=== PATIENT | female | born 1935 | race Caucasian/White ===

== ENCOUNTER → 2022-12-10 11:43 | Outpatient (BNVA) | payer MEDICARE, SELFPAY | PROVIDERS: Family Provider Nurse Practitioner Family; PCP Nurse Practitioner Family; Visit Provider Registered Nurse | DX: N39.0 Urinary tract infection, site not specified (principal); R39.9 Unspecified symptoms and signs involving the genitourinary system | CPT/HCPCS: 81000; 87077; 87086; 87184 ==

== ENCOUNTER → 2022-12-17 10:38 | Outpatient (BNVA) | payer MEDICARE, SELFPAY | PROVIDERS: Family Provider Nurse Practitioner Family; PCP Nurse Practitioner Family; Visit Provider Registered Nurse | DX: N39.0 Urinary tract infection, site not specified (principal) | CPT/HCPCS: 81000 ==

== ENCOUNTER → 2023-07-02 14:48 | Outpatient (BNVA) | payer MEDICARE, SELFPAY | PROVIDERS: Family Provider Nurse Practitioner Family; PCP Registered Nurse; Visit Provider Registered Nurse | DX: I10 Essential (primary) hypertension (principal); R25.2 Cramp and spasm; M71.22 Synovial cyst of popliteal space [Baker], left knee; F41.9 Anxiety disorder, unspecified | CPT/HCPCS: 80053; 81000; 85025 ==

== ENCOUNTER → 2023-08-15 10:17 | Outpatient (BNVA) | payer MEDICARE, SELFPAY | PROVIDERS: Family Provider Nurse Practitioner Family; PCP Registered Nurse; Referring Provider Registered Nurse; Visit Provider Nurse Practitioner | DX: M17.12 Unilateral primary osteoarthritis, left knee | CPT/HCPCS: 20610; 73560; 73565; 99204; J1100; J2795; J3301 ==

== ENCOUNTER 2024-01-04 13:28 | Inpatient (IN) | payer MEDICARE, SELFPAY ==
[2024-01-04] VITALS (12 sets, daily range): BP systolic 91–162; BP diastolic 53–78; PULSE 61–116; RESP 18–36; TEMP 37.1–37.6; O2SAT 90–97; BMI 27.4
--- NOTE | 2024-01-04 14:05 | XRR_ITS ---
PROCEDURE INFORMATION: Exam: XR Chest Exam date and time: 01/04/2024 2:21 PM Age: 88 years old Clinical indication: Shortness of breath; Additional info: SOB, fever TECHNIQUE: Imaging protocol: Radiologic exam of the chest. Views: 1 view. COMPARISON: No relevant prior studies available. FINDINGS: Lungs: Increased opacity at the right lung base. Curvilinear bilateral opacities which can be seen with emphysematous lung changes. 0.7 centimeters right mid lung opacity. Pleural spaces: No pneumothorax, or pleural effusion. Heart/Mediastinum: Unremarkable. No cardiomegaly. Bones/joints: Bilateral narrowing of the glenohumeral joints without subchondral sclerosis. Chronic multilevel degenerative changes of the thoracic vertebrae. XR/XR chest 1V portable [id number] IMPRESSION: 1. Increased opacity at the right lung base. Infectious process cannot be ruled out. 2. Emphysematous lung changes. 3. 0.7 centimeters right mid lung opacity.
[2024-01-04 14:13] LABS: Basophils % 0.2 %; Hematocrit 36.5 % (36-47); Lymphocytes # 0.8 10^3/uL (0.8-4.8); Lymphocytes % 3.7 %; Mean Corpuscular HGB Conc 29.9 g/dL (30-55); Mean Corpuscular Hemoglobin 27.7 pg (27-33); Mean Corpuscular Volume 92.9 fl (85-98); Mean Platelet Volume 10.3 fL (7.4-10.4); Monocytes # 1.6 10^3/uL (0.2-0.9); Monocytes % 7.1 %; Neutrophils # 19.57 10^3/uL (1.8-7.7); Neutrophils % 88.3 %; Nucleated Red Blood Cells % 0 %; Platelet Count 246 10^3/cmm (157-399); Red Blood Count 3.93 10^6/uL (3.85-5.65); Red Cell Distribution Width 15.3 % (12.1-15.1); White Blood Count 22.18 10^3/uL (3.29-11.43)
[2024-01-04 14:34] LABS: NT Pro B Type Natriuretic Pept 196 pg/mL (0-450); Procalcitonin 0.18 ng/mL (0-0.5)
[2024-01-04 14:40] LABS: Influenza A by IFA negative (Negative); Influenza B by IFA negative (Negative)
[2024-01-04 14:41] LABS: Lactic Sepsis W/Reflex 1.7 mmol/L (0.5-2.2); SARS Covid-2 Antigen negative (Negative)
[2024-01-04 14:45] LABS: Alanine Aminotransferase 12 U/L (0-33); Albumin Level 3.9 g/dL (3.5-5.2); Alkaline Phosphatase 84 U/L (35-105); Anion Gap 16.2 (5-19); Aspartate Amino Transferase 20 U/L (0-32); Blood Urea Nitrogen 19 mg/dL (8-23); Calcium 9.1 mg/dL (8.5-10.5); Carbon Dioxide 34 mmol/L (22-29); Chloride 96 mmol/L (98-107); Globulin 3.2 g/dL (1.3-4.6); Glucose 139 mg/dL (65-115); Osmolality Calculated 299 mOsm/kg (285-295); Potassium 4.2 mmol/L (3.5-5.1); Sodium 142 mmol/L (136-145); Total Bilirubin 0.5 mg/dL (0.15-1.2); Total Protein 7.1 g/dL (6.6-8.7)
[2024-01-04] MEDS: sodium chloride 0.9% 500 ML IV (14:47)
[2024-01-04 14:51] LABS: Creatinine Clr Calc Pharmacy 31.3497
--- NOTE | 2024-01-04 14:53 | ECG_ITS ---
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 Measurements Intervals [place] Rate: 111 P: 91 MA: 129 QRS: 78 QRSD: 90 T: 41 QT: 322 QTc: 438 Interpretive Statements SINUS TACHYCARDIA MINIMAL ST DEPRESSION [0.025+ mV ST DEPRESSION] ABNORMAL RHYTHM ECG No previous ECG available for comparison Electronically Signed On 01-05-2024 11:42:50 CDT by Kevin Martinez M.D. [id number]
[2024-01-04] MEDS: ipratropium-albuterol 3 mL Neb INHALATION ×2 (15:13→20:44)
[2024-01-04 15:33] LABS: Add Urine Microscopic? YES; Bacteria Urine 2+ /hpf; Bilirubin Urine Neg (Negative); Blood Urine 2+ (Negative); Glucose Urine UA Norm (Normal); Ketones Urine 1+ (Negative); Leukocyte Esterase Urine 1+ (Negative); Nitrate Urine Negative (Negative); Protein Urine Neg (Negative); Squamous Epithelial Cell Urine 0-4 /hpf (0-5); Urine Appearance Clear (CLEAR); Urine Color Yellow (Yellow); Urobilinogen Urine Norm (Negative); WBC Urine 15-25 /hpf (0-5); pH Urine 5 (5-7)
[2024-01-04 15:34] LABS: Add Urine Culture? Yes
--- NOTE | 2024-01-04 15:36 | PC.NURSE ---
abx delayed due to needing blood cultures drawn first.
[2024-01-04] MEDS: cefTRIAXone 1,000 MG in sodium chloride 0.9% (plus) 50 ML 100 MG IV (15:49)
--- NOTE | 2024-01-04 17:14 | ED_ITS ---
HPI - SOB/Dyspnea 2 General: Chief Complaint: Shortness of Breath/Dyspnea Stated Complaint: FALL Time Seen by Provider: 01/04/24 13:32 Source: patient and EMS Mode of arrival: EMS Limitations: no limitations History of Present Illness: HPI Narrative: 88-year-old female comes in with shortne ss of breath and fever. EMS reported temp of 101.6 on arrival here is 99.6. Patient has a history of COPD and CHF. Patient was recently placed on Lasix. Of note she is tachycardic and tachypneic. She reports that she has been feeling bad and got worse today. She had a fall also today but reports no pain from the fall just, fell on her bottom when she missed the toilet. Related Data: Home oxygen amount: 2 liters Review of Systems 2 General: Reports: 10 or more systems reviewed and unremarkable except in HPI and below PFSH ED 2 PFSH: Medical History Posterior left knee pain Primary osteoarthritis of left knee Hypertension Social History Smoking and tobacco/nicotine status: current every day tobacco/nicotine user smokeless tobacco Smokeless tobacco user: snuff Alcohol intake: never Substance/Drug Use: never Adopted: No Caregiver/support person: No Lives independently: Yes Marital status: / Do you think of yourself as: Straight/Heterosexual Current gender identity: Female Physical Exam 2 Const: COMMON NORMALS: no acute distress, average body habitus, patient oriented x3, healthy appearing, alert and well nourished GENERAL APPEARANCE: well kempt, well developed, ill appearing and frail appearing HENMT: COMMON NORMALS: normocephalic, atraumatic, external ears normal and moist oral mucous membranes HEAD & SCALP: normocephalic and atraumatic E XTERNAL EAR: Yes external ears normal Eye: COMMON NORMALS: Equal, round and reactive pupils present, EOMs intact bilaterally and conjunctivae normal CONJUNCTIVA: Yes conjunctivae normal P UPIL: Yes Equal, round and reactive pupils present Neck/C-Spine: COMMON NORMALS: full ROM, no lymphadenopathy and supple Chest: CHEST: Yes Symmetrical chest wall rise and No Surgical scars present (Chest) Resp: COMMON NORMALS: No retractions EFFORT & INSPECTION: Yes symmetric chest movement, Yes tachypneic and Yes uses accessory muscles AUSCULTATION: r honchi right lower and wheezes expiratory wheezes Cardio: COMMON NORMALS: regular rhythm, S1 normal heart sound present, S2 normal heart sound present, No gallops present (Cardio), No clicks present (Cardio), No murmurs present (Cardio) and No rub (Cardio) RATE: tachycardic RHYTHM: regular rhythm HEART SOUNDS: S1 normal heart sound present, S2 normal heart sound present and no murmurs PERIPHERAL PULSES: other (Radial pulses 2+ and symmetric) GI: COMMON NORMALS: Soft to palpation, non-tender and no masses INSPECTION: No abdominal distension PALPATION: Yes Soft to palpation, No Guarding due to palpation present (GI) and No Rebound tenderness present : COMMON NORMALS: Yes no CVA tenderness BLADDER/KIDNEY EXAM: Yes no CVA tenderness Back/Pelvis: COMMON NORMALS: no CVA tenderness Extremity: COMMON NORMALS: normal to inspection, full ROM, capillary refill normal and no clubbing, cyanosis or edema Neuro: COMMON NORMALS: patient oriented x3 SENSORIUM/ORIENTATION: Yes alert Psych: APPEARANCE: Yes well kempt Skin: COMMON NORMALS: no rashes or lesions noted, no wounds, turgor normal and no jaundice GENERAL SKIN EXAM: no rashes or lesions noted and turgor normal Course 2 Vital Signs: Vital signs: Vital Signs Temperature 99.6 F 01/04/24 13:30 Pulse Rate 115 H 01/04/24 15:17 Respiratory Rate 22 H 01/04/24 15:17 Blood Pressure 122/60 01/04/24 15:17 Pulse Oximetry 96 01/04/24 15:17 Oxygen Delivery Me thod Nasal Cannula 01/04/24 15:17 Oxygen Flow Rate 2 01/04/24 15:17 MDM - SOB/Dyspnea Medical Decision Making Patient arrives with sepsis and shortness of breath. Has a right lower lobe pneumonia on chest x-ray. Labs came back showing elevated white count. Thankfully CMP is fairly unremarkable for patient may be a mild dehydration. Patient was given 500 cc of fluids and blood pressure improved from 91/69 to 122/60. Heart rate initially improved but has come back to being elevated. Will give another 500 cc and admit patient to hospital. She had been given 1 g of Rocephin and will be given azithromycin 500 mg. An EKG was also performed and was performed at 1453 and I interpreted at 1458. Sinus tachycardia rate of [address] elevations or depressions normal axis with no prolonged intervals. Medical Records I reviewed the patient's medical records. Lab Data I reviewed the patient's lab results. 01/04/24 13:45 01/04/24 13:45 Labs/Radiology: Radiology Impressions Chest X-Ray 01/04/24 14:05 IMPRESSION: 1. Increased opacity at the right lung base. Infectious process cannot be ruled out. 2. Emphysematous lung changes. 3. 0.7 centimeters right mid lung opacity. Laboratory Results WBC 22.18 10^3/uL (3.29-11.43) H 01/04/24 13:45 RBC 3.93 10^6/uL (3.85-5.65) 01/04/24 13:45 Hgb 10.90 g/dL (11.27-16.99) L 01/04/24 13:45 Hct 36.5 % (36-47) 01/04/24 13:45 MCV 92.9 fl (85-98) 01/04/24 13:45 MCH 27.7 pg (27-33) 01/04/24 13:45 MCHC 29.9 g/dL (30-55) L 01/04/24 13:45 RDW 15.3 % (12.1-15.1) H 01/04/24 13:45 Plt Count 246 10^3/cmm (157-399) 01/04/24 13:45 MPV 10.3 fL (7.4-10.4) 01/04/24 13:45 Neut % (Auto) 88.3 % 01/04/24 13:45 Lymph % (Auto) 3.7 % 01/04/24 13:45 [place] % (Auto) 7.1 % 01/04/24 13:45 Eos % (Auto) 0.0 % 01/04/24 13:45 Baso % (Auto) 0.2 % 01/04/24 13:45 Neut # (Auto) 19.57 10^3/uL (1.8-7.7) H 01/04/24 13:45 Lymph # (Auto) 0.8 10^3/uL (0.8-4.8) 01/04/24 13:45 [place] # (Auto) 1.6 10^3/uL (0.2-0.9) H 01/04/24 13:45 Eos # (Auto) 0.0 10^3/uL (0.0-0.8) 01/04/24 13:45 Baso # (Auto) 0.0 10^3/uL (0.0-0.1) 01/04/24 13:45 Nucleated RBC % (auto) 0 % 01/04/24 13:45 Nucleated RBCs # 0.0 /100WBC 01/04/24 13:45 Sodium 142 mmol/L (136-145) 01/04/24 13:45 Potassium 4.2 mmol/L (3.5-5.1) 01/04/24 13:45 Chloride 96 mmol/L (98-107) L 01/04/24 13:45 Carbon Dioxide 34 mmol/L (22-29) H 01/04/24 13:45 Anion Gap 16.2 (5-19) 01/04/24 13:45 BUN 19 mg/dL (8-23) 01/04/24 13:45 Creatinine 1.1 mg/dL (0.5-0.9) H 01/04/24 13:45 GFR Calculation Not Reportable 01/04/24 13:45 Glucose 139 mg/dL (65-115) H 01/04/24 13:45 Calculated Osmolality 299 mOsm/kg (285-295) H 01/04/24 13:45 Lactic Acid 1.7 mmol/L (0.5-2.2) 01/04/24 13:45 Calcium 9.1 mg/dL (8.5-10.5) 01/04/24 13:45 Total Bilirubin 0.5 mg/dL (0.15-1.2) 01/04/24 13:45 AST 20 U/L (0-32) 01/04/24 13:45 ALT 12 U/L (0-33) 01/04/24 13:45 Alkaline Phosphatase 84 U/L (35-105) 01/04/24 13:45 NT-Pro-B Natriuret Pep 196 pg/mL (0-450) 01/04/24 13:45 Total Protein 7.1 g/dL (6.6-8.7) 01/04/24 13:45 Albumin 3.9 g/dL (3.5-5.2) 01/04/24 13:45 Globulin 3.2 g/dL (1.3-4.6) 01/04/24 13:45 Procalcitonin 0.18 ng/mL (0-0.5) 01/04/24 13:45 Urine Color Yellow (Yellow) 01/04/24 15:10 Urine Appearance Clear (CLEAR) 01/04/24 15:10 Urine pH 5 (5-7) 01/04/24 15:10 Ur Specific [place] 1.020 (1.005-1.030) 01/04/24 15:10 Urine Protein Neg (Negative) 01/04/24 15:10 Urine Glucose (UA) Norm (Normal) 01/04/24 15:10 Urine Ketones 1+ (Negative) H 01/04/24 15:10 Urine Blood 2+ (Negative) H 01/04/24 15:10 Urine Nitrate Negative (Negative) 01/04/24 15:10 Urine Bilirubin Neg (Negative) 01/04/24 15:10 Urine Urobilinogen Norm mg/dL (Negative) 01/04/24 15:10 Ur Leukocyte Esterase 1+ (Negative) H 01/04/24 15:10 Urine RBC 5-10 /hpf (0-2) H 01/04/24 15:10 Urine WBC 15-25 /hpf (0-5) H 01/04/24 15:10 Ur Squamous Epith Cells 0-4 /hpf (0-5) H 01/04/24 15:10 Amorphous Sediment Not Reportable 01/04/24 15:10 Urine Bacteria 2+ /hpf (NONE) H 01/04/24 15:10 Influenza Type A Ag negative (Negative) 01/04/24 13:45 Influenza Type B Ag negative (Negative) 01/04/24 13:45 SARS-CoV-2 Ag (Rapid) negative (Negative) 01/04/24 13:45 All radiology interpretation(s) finalized by discharge ED provider radiology interpretation(s): See MDM discussion right lower lobe pneumonia on chest x-ray Discharge Plan Discharge Patient Disposition: Admitted As Inpatient Clinical Impression: Community acquired pneumonia, Sepsis Condition: Stable Prescriptions: No Action (DME) oxygen 3.5L See Rx Instructions .Route .MEDSUPPLY Qty: 1 0RF Rx Instructions: As directed chlorhexidine gluconate 0.12 % mouthwash 15 ml buccal BID 10 Days Qty: 1500 0RF fluticasone propion-salmeterol [Advair Diskus] 250-50 mcg/dose blister with device 1 inh inhalation BID 30 Days Qty: 60 5RF Rx Instructions: 340B, pt does NOT Have insurance CAN DO BRAND NAME IF CHEAPER furosemide [Lasix] 20 mg tablet 10 - 20 mg PO DAILY 30 Days Qty: 30 5RF levalbuterol HCl 1.25 mg/3 mL solution for nebulization See Rx Instructions .ROUTE .COMPLEX Qty: 225 0RF Dose Instruction: USE 1 VIAL IN NEBULIZER TWICE DAILY FOR 30 DAYS. DX: J43.8 Rx Instructions: USE 1 VIAL IN NEBULIZER TWICE DAILY FOR 30 DAYS. DX: J43.8 lorazepam 0.5 mg tablet 0.25 - 0.5 mg PO DAILY PRN (Reason: anxiety) 30 Days Qty: 30 5RF (DME) Aeroneb Go Nebulizer Misc See Rx Instructions .Route Qty: 1 0RF Rx Instructions: As directed ropinirole 0.25 mg tablet See Rx Instructions .ROUTE .COMPLEX Qty: 30 0RF Dose Instruction: TAKE 1 TO 2 TABLETS BY MOUTH ONCE DAILY NEEDED FOR RESTLESS LEGS Rx Instructions: TAKE 1 TO 2 TABLETS BY MOUTH ONCE DAILY NEEDED FOR RESTLESS LEGS Referrals: Ayanna Pennington FNP [Primary Care Provider] - Coding Level of Care Code ED [employer] Dispatcher for Brandi Mancia
--- NOTE | 2024-01-04 17:30 | ECG_ITS ---
[facility] Test Date: 2024-01-04 Pat Name: Nadia Staley Department: Room: Gender: Female Hand Shaker: : 1935 Requested By: Ashlie Holbrook Order Number: [id number] Reading MD: Kevin Martinez M.D. Measurements Intervals [place] Rate: 115 P: 89 OR: 125 QRS: 85 QRSD: 94 T: 48 QT: 326 QTc: 452 Interpretive Statements SINUS TACHYCARDIA WITH OCCASIONAL SUPRAVENTRICULAR PREMATURE COMPLEXES MODERATE ST DEPRESSION [0.05+ mV ST DEPRESSION] Compared to ECG 01/04/2024 14:53:25 No significant changes Electronically Signed On 01-05-2024 11:38:58 CDT by Kevin Martinez M.D. [id number]
--- NOTE | 2024-01-04 17:32 | P.HP_ITS ---
Providers/Chief Complaint 2 Primary Care Provider: ANNEL Mckeon Chief Complaint: FALL History of Present Illness Nadia Staley is a 88 year old female resident of [facility], with a past medical history of COPD, chronically on 2 to 3 L/min supplemental oxygen at home. She currently presents with 2 to 3 days of worsening lower extremity swelling, dyspnea on exertion. Patient was seen by her primary care provider on Saturday, her dose of Lasix was increased due to lower extremity swelling. While patient's lower extremity swelling improved, she developed shortness of breath worsening over the last 24 hours today. She felt very weak, and fell while trying to sit on the commode. No head injury. No chest injury. Denies any dysuria. Chest x-ray today shows suspicion for right lower lobe pneumonia. She has leukocytosis. Currently requiring 3 L/min supplemental O2. She is tachypneic in conversation, has a very hard time completing sentences currently. Denies any URI type symptoms. Denies any abdominal pain nausea vomiting or diarrhea. Review of Systems 2 General: Reports: 10 or more systems reviewed and unremarkable except in HPI and below Const: Denies: fever(s), chills or body aches Eyes: Denies: change in vision, blurry vision or photophobia ENMT: Reports: hoarseness; Denies: throat pain, enlarged tonsils, odynophagia or nasal congestion Card: Denies: chest pain, palpitations, irregular heart rhythm, edema, swelling of feet/ankles, lightheadedness, pre-syncope, dyspnea on exertion or orthopnea Resp: Denies: dyspnea, productive cough, non-productive cough, wheezing, stridor, pain on inspiration, change in phlegm color, hemoptysis or chest congestion GI: Denies: abdominal pain, nausea, vomiting, hematemesis, coffee ground emesis, dysphagia, heartburn, diarrhea, constipation, GI cramping, change in stool character, hematochezia or melena : Denies: flank pain, difficulty voiding, dysuria, urinary frequency, urinary urgency, urinary hesitancy or hematuria Musc: Denies: neck pain, back pain, extremity pain, joint swelling, joint warmth or deformity Neuro: Denies: headache(s), numbness in extremities, weakness in extremities, sensory changes, difficulty walking, frequent falls, dizziness, vertigo, behavioral changes, Slurred speech present or seizure-like activity Psych: Denies: anxiety, depression, suicidal ideation or homicidal ideation Endo: Denies: polyuria, polydipsia, tired all the time, cold intolerance or hot flashes Shaun/Lymph: Denies: easy bruising or easy bleeding Medications/Allergies Home Medications Medication Instructions Recorded Confirmed Last Taken Type nebulizers (Aeroneb Go Nebulizer) #1 ea 04/13/22 01/01/24 Unknown Rx oxygen #1 ea 06/07/22 01/01/24 Unknown Rx lorazepam 0.5 mg tablet 0.25 - 0.5 mg (0.5 - 1 x 0.5 mg) 07/02/23 01/01/24 Unknown Rx PO DAILY PRN anxiety 30 days #30 tabs chlorhexidine gluconate 0.12 % 15 ml buccal BID 10 days #1,500 mL 11/29/23 01/01/24 Unknown Rx mouthwash ropinirole 0.25 mg tablet See Rx Instructions .Route 12/12/23 01/01/24 Unknown Rx .COMPLEX #30 tabs fluticasone 250 mcg-salmeterol 50 1 inh inhalation BID 30 days #60 ea 01/01/24 01/01/24 Unknown Rx mcg/dose blistr powdr for inhalation (Advair Diskus) furosemide 20 mg tablet (Lasix) 10 - 20 mg (0.5 - 1 x 20 mg) PO 01/01/24 01/01/24 Unknown Rx DAILY 30 days #30 tabs levalbuterol HCl 1.25 mg/3 mL See Rx Instructions .Route 01/01/24 01/01/24 Unknown Rx solution for nebulization .COMPLEX #225 mL Allergies Allergy/AdvReac Type Severity Reaction Status Date / Time prednisone Allergy ADR-Confusi Verified 01/04/24 13:41 on PFSH Acute 2 PFSH: Medical History Posterior left knee pain Primary osteoarthritis of left knee Hypertension Social History Smoking and tobacco/nicotine status: current every day tobacco/nicotine user smokeless tobacco Smokeless tobacco user: snuff Alcohol intake: never Substance/Drug Use: never Adopted: No Caregiver/support person: No Lives independently: Yes Marital status: / Do you think of yourself as: Straight/Heterosexual Current gender identity: Female Vitals/I&O/Wt Last Vital Signs Temp 99.6 F 01/04/24 13:30 Pulse 115 H 01/04/24 15:17 Resp 22 H 01/04/24 15:17 BP 122/60 01/04/24 15:17 Pulse Ox 96 01/04/24 15:17 O2 Del Method Nasal Cannula 01/04/24 15:17 O2 Flow Rate 2 01/04/24 15:17 Weight last 48 hrs Weight 68.039 kg Physical Exam 2 Narrative: General: Tachypneic, unable to complete full sentences in conversation. HEENT: PERRLA, pupils bilaterally equal and reactive, pallors not present Chest: Bilateral wheezing scattered CVS: S1-S2 regular, no murmurs, no tachycardia, no gallops, no rubs Abdomen: Soft, nontender, no organomegaly, bowel sounds present Neuro: No focal deficits, no facial deformity, AO x3 Extremities: Pitting edema lower extremity, noted right-sided edema greater than the left. Data 01/04/24 13:45 01/04/24 13:45 Micro: Microbiology 01/04/24 15:02 Blood Culture - Preliminary Blood SPECIMEN COLLECTED 01/04/24 15:00 Blood Culture - Preliminary Blood SPECIMEN COLLECTED A&P Assessment and plan (1) Community acquired pneumonia: Patient presenting with HPI as above. Currently noted to be tachypneic in conversation. Requiring 3 L/min supplemental O2. Chest x-ray with right lower lobe infiltrate, likely community-acquired pneumonia Start ceftriaxone 1 g IV every 24 hours and azithromycin 500 mg p.o. daily for treatment Blood culture taken in the emergency room Obtain sputum culture, though this may be hard to obtain since patient denies being able to expectorate Negative COVID and influenza antigens. Check urine bacterial antigen. Qualifiers: Laterality: right Lung location: lower lobe of lung Qualified Code(s): J18.9 - Pneumonia, unspecified organism (2) Swelling of lower extremity: Asymmetric swelling involving bilateral lower extremities. Right is worse than left. Family reports that she has recently had an increase in the dose of Lasix. Her BNP today is only 196. Mild lower BNP in the setting of clinical evidence of pulmonary edema and lower extremity edema may be related to advanced age, would want to rule out alternate possibility of a DVT/PE. Screen with a D-dimer. If negative less likely to be PE. If positive, will likely proceed with CTA of the chest. Closely monitor creatinine trend, currently mild JESSI with creatinine at 1.1. Lasix 20 mg IV x 1. No further IV fluids as patient clinically hypervolemic. (3) COPD (chronic obstructive pulmonary disease): COPD with mild exacerbation DuoNeb every 6 hours scheduled, budesonide every 12 hours scheduled nebulization. Patient declines the use of steroids, she states that she hallucinates and feels crazy , therefore does not want to use any steroids for now. Qualifiers: COPD type: emphysema Emphysema type: other Qualified Code(s): J43.8 - Other emphysema (4) Chronic respiratory failure with hypoxia, on home O2 therapy: Plan DVT prophylaxis: Lovenox 40 PUD prophylaxis: Protonix 40 mg p.o. daily DNR/DNI, would not want BiPAP either. Attestations 2 Medical Necessity Statement*: Greater than 2 midnight admission is anticipated for management of community- acquired pneumonia, COPD exacerbation, hypervolemia needing further investigation. Coding Level of Care Code Acute Code for Chg Fwd High MDM includes number and complexity of problems actively addressed during encounter, amount and/or complexity of data reviewed/ordered and described risk of complication, morbidity or mortality of management as documented Diagnoses Community acquired pneumonia J18.9 Laterality: right Lung location: lower lobe of lung Swelling of lower extremity M79.89 Other emphysema J43.8 COPD type: emphysema Emphysema type: other Chronic respiratory failure with hypoxia, on home O2 therapy J96.11; Z99.81
--- NOTE | 2024-01-04 17:39 | USR_ITS ---
PROCEDURE INFORMATION: Exam: US Duplex Lower Extremity Veins, Bilateral Exam date and time: 01/04/2024 6:50 PM Age: 88 years old Clinical indication: Screening exam; Evaluate for dvt TECHNIQUE: Imaging protocol: Real-time duplex ultrasound of the bilateral extremities with 2-D delaney scale, color Doppler flow and spectral waveform analysis including responses to compression and other maneuvers (when performed) with image documentation. Complete exam focused on the lower extremity veins. COMPARISON: CR XR knees AP WB w LT lmt ORTH 08/15/2023 10:18 AM FINDINGS: Right deep veins: Unremarkable. The common femoral, femoral, proximal profunda femoral and popliteal veins are patent without thrombus. Normal Doppler waveforms. Normal compressibility and/or augmentation response. Left deep veins: Unremarkable. The common femoral, femoral, proximal profunda femoral and popliteal veins are patent without thrombus. Normal Doppler waveforms. Normal compressibility and/or augmentation response. Superficial veins: Greater saphenous veins at the saphenofemoral junctions are patent bilaterally without thrombus. Soft tissues: Bilateral anechoic fluid collections of the popliteal fossas. US/[place] [id number] IMPRESSION: 1. No evidence of deep vein thrombosis. 2. 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
[2024-01-04] MEDS: azithromycin 500 MG in sodium chloride 0.9% 250 ML 250 MG IV (18:30)
[2024-01-04] MEDS: sodium chloride 0.9% 500 ML 999 ML IV (18:30)
[2024-01-04 19:31] LABS: Troponin(5th) Baseline 43 ng/L (0-10)
[2024-01-04] MEDS: budesonide 0.5 mg/2 mL Neb INHALATION (20:44)
--- NOTE | 2024-01-04 20:57 | ECG_ITS ---
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 Measurements Intervals [place] Rate: 112 P: 0 RI: 0 QRS: 85 QRSD: 102 T: 14 QT: 323 QTc: 442 Interpretive Statements Sinus tachycardia with frequent PACs ABNORMAL RHYTHM ECG Compared to ECG 01/04/2024 17:49:47 ST (T wave) deviation no longer present Electronically Signed On 01-05-2024 11:45:19 CDT by Kevin Martinez M.D. [id number]
[2024-01-04] MEDS: FUROsemide 10 mg/mL SDV 2mL 20 MG IVP (21:00)
--- NOTE | 2024-01-04 21:08 | PC.NURSE ---
When asking patient what medications she takes at home, the patient states mostly vitamins. Patient is unable to tell me the names of the medications she takes at home, however pharmacy has been verified with patient.
[2024-01-04 21:21] LABS: Troponin 5 2HR 41.05 ng/L (0-10)
[2024-01-04 21:22] LABS: Troponin 5 2HR Delta -1.95 ABS# (0-10)
--- NOTE | 2024-01-04 23:29 | ECG_ITS ---
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 Measurements Intervals [place] Rate: 110 P: 82 LA: 181 QRS: 85 QRSD: 96 T: -24 QT: 333 QTc: 451 Interpretive Statements SINUS TACHYCARDIA WITH FREQUENT SUPRAVENTRICULAR PREMATURE COMPLEXES Baseline artifact POSSIBLE LEFT ATRIAL ENLARGEMENT [-0.1mV P-WAVE IN V1/V2] ST DEVIATION AND MODERATE T-WAVE ABNORMALITY Compared to ECG 01/04/2024 20:57:17 T-wave abnormality now present Electronically Signed On 01-05-2024 11:47:01 CDT by Kevin Martinez M.D. [id number]
[2024-01-05] VITALS (13 sets, daily range): BP systolic 115–138; BP diastolic 53–77; PULSE 59–116; RESP 16–28; TEMP 36.5–37.2; O2SAT 90–98
[2024-01-05 00:22] LABS: Basophils % 0.2 %; Hematocrit 34.1 % (36-47); Lymphocytes % 4.1 %; Mean Corpuscular HGB Conc 29.6 g/dL (30-55); Mean Corpuscular Hemoglobin 27.5 pg (27-33); Mean Corpuscular Volume 92.9 fl (85-98); Mean Platelet Volume 9.8 fL (7.4-10.4); Monocytes # 2.1 10^3/uL (0.2-0.9); Monocytes % 8.4 %; Neutrophils # 21.47 10^3/uL (1.8-7.7); Neutrophils % 85.9 %; Nucleated Red Blood Cells % 0 %; Platelet Count 218 10^3/cmm (157-399); Red Blood Count 3.67 10^6/uL (3.85-5.65); Red Cell Distribution Width 15.4 % (12.1-15.1); White Blood Count 24.99 10^3/uL (3.29-11.43)
[2024-01-05 00:40] LABS: Troponin 5 6HR 50.99 ng/L (0-10); Troponin 5 6HR Delta 7.99 ng/L (0-12)
[2024-01-05 00:42] LABS: Alanine Aminotransferase 13 U/L (0-33); Albumin Level 3.5 g/dL (3.5-5.2); Alkaline Phosphatase 75 U/L (35-105); Anion Gap 12.4 (5-19); Aspartate Amino Transferase 22 U/L (0-32); Blood Urea Nitrogen 22 mg/dL (8-23); Calcium 8.5 mg/dL (8.5-10.5); Carbon Dioxide 34 mmol/L (22-29); Chloride 100 mmol/L (98-107); Creatinine Clr Calc Pharmacy 30.3211; Globulin 3.1 g/dL (1.3-4.6); Glucose 137 mg/dL (65-115); Osmolality Calculated 299 mOsm/kg (285-295); Potassium 4.4 mmol/L (3.5-5.1); Sodium 142 mmol/L (136-145); Total Bilirubin 0.5 mg/dL (0.15-1.2); Total Protein 6.6 g/dL (6.6-8.7)
[2024-01-05] MEDS: ipratropium-albuterol 3 mL Neb INHALATION ×2 (03:27→08:24)
[2024-01-05] MEDS: enoxaparin 30 mg/0.3 mL Syringe SUBCUT (07:56)
[2024-01-05] MEDS: pantoprazole DR 40 mg Tablet PO (07:56)
[2024-01-05] MEDS: azithromycin 250 mg Tablet 500 MG PO (07:56)
[2024-01-05] MEDS: budesonide 0.5 mg/2 mL Neb INHALATION ×2 (08:24→20:21)
[2024-01-05] MEDS: vancomycin 1,250 MG/250 ML PIGGYBACK 250 MG IV (11:58)
[2024-01-05] MEDS: piperacillin-tazobactam 3.375 GM in sodium chloride 0.9% (plus) 50 ML IV ×2 (13:19→22:04)
[2024-01-05] MEDS: ipratropium 0.5 mg/2.5 mL Neb INHALATION ×2 (13:42→20:21)
[2024-01-05] MEDS: levalbuterol 0.63 mg/3 mL Neb 0.630000000000000004 MG INHALATION ×2 (13:42→20:21)
[2024-01-05] MEDS: dexamethasone 4 mg/mL INJ 2 MG IVP (14:00)
[2024-01-05] MEDS: lanolin oint 7 gm 1 APPLIC TOPICAL (16:29)
--- NOTE | 2024-01-05 17:51 | P.PN_ITS ---
Subjective 2 Subjective: White blood cell count worsening today. She continues to be tachypneic. 3 L/min supplemental O2. Medications: Reviewed: Yes Vitals/I&O/Wt Last Vital Signs Temp 98.1 F 01/05/24 15:44 Pulse 96 01/05/24 15:44 Resp 18 01/05/24 15:44 BP 129/73 01/05/24 15:44 Pulse Ox 90 01/05/24 15:44 O2 Del Method Nasal Cannula 01/05/24 15:44 O2 Flow Rate 3 01/05/24 13:42 01/05/24 01/05/24 01/05/24 06:59 14:59 22:59 Intake Total 1090 / 1090 50 / 1140 Balance 1090 / 1090 50 / 1140 Weight last 48 hrs Weight 74.525 kg Weight 75.931 kg Weight 68.039 kg Physical Exam 2 Narrative: General: Tachypneic HEENT: PERRLA, pupils bilaterally equal and reactive, pallors not present Chest: Normal vesicular breath sounds, no added sounds, equal good air entry bilaterally CVS: S1-S2 regular, no murmurs, no tachycardia, no gallops, no rubs Abdomen: Soft, nontender, no organomegaly, bowel sounds present Neuro: No focal deficits, no facial deformity, AO x3, power 5/5 in all limbs Data 01/05/24 00:07 01/05/24 00:07 Micro: Microbiology 01/04/24 15:02 Blood Culture - Preliminary Blood NEGATIVE TO DATE 01/04/24 15:00 Blood Culture - Preliminary Blood NEGATIVE TO DATE A&P Assessment and plan (1) Community acquired pneumonia: Patient presenting with HPI as above. Currently noted to be tachypneic in conversation. Requiring 3 L/min supplemental O2. Chest x-ray with right lower lobe infiltrate, likely community-acquired pneumonia Start ceftriaxone 1 g IV every 24 hours and azithromycin 500 mg p.o. daily for treatment Blood culture taken in the emergency room Obtain sputum culture, though this may be hard to obtain since patient denies being able to expectorate Negative COVID and influenza antigens. Check urine bacterial antigen. Qualifiers: Laterality: right Lung location: lower lobe of lung Qualified Code(s): J18.9 - Pneumonia, unspecified organism (2) Swelling of lower extremity: Asymmetric swelling involving bilateral lower extremities. Right is worse than left. Family reports that she has recently had an increase in the dose of Lasix. Her BNP today is only 196. Mild lower BNP in the setting of clinical evidence of pulmonary edema and lower extremity edema may be related to advanced age, would want to rule out alternate possibility of a DVT/PE. Screen with a D-dimer. If negative less likely to be PE. If positive, will likely proceed with CTA of the chest. Closely monitor creatinine trend, currently mild JESSI with creatinine at 1.1. Lasix 20 mg IV x 1. No further IV fluids as patient clinically hypervolemic. (3) COPD (chronic obstructive pulmonary disease): COPD with mild exacerbation DuoNeb every 6 hours scheduled, budesonide every 12 hours scheduled nebulization. Patient declines the use of steroids, she states that she hallucinates and feels crazy , therefore does not want to use any steroids for now. Qualifiers: COPD type: emphysema Emphysema type: other Qualified Code(s): J43.8 - Other emphysema (4) Chronic respiratory failure with hypoxia, on home O2 therapy: Plan DVT prophylaxis: Lovenox 40 PUD prophylaxis: Protonix 40 mg p.o. daily DNR/DNI, would not want BiPAP either. Plan for today January 05, 2024. Worsening white blood cell count today. No diarrhea. Antibiotic coverage has been expanded to piperacillin/tazobactam and vancomycin. Continue azithromycin for atypical coverage. Patient agreeable to starting very low-dose steroid today. Dexamethasone 2 mg IV has been ordered as patient has significant wheezing on exam today. Would not want higher dose steroids for now.Noted to have sinus tachycardia. Nebulization changed from albuterol to levo albuterol to better control tachycardia. Clinically euvolemic today. Holding Lasix. Noted to have mildly elevated troponin in the 40-50 range without significant delta at 2 or 6 hours. Will check echocardiogram. Attestations 2 Medical Necessity Statement*: Needs continued hospital admission for treatment of pneumonia with IV antibiotics, broadening coverage today. IV steroids for COPD exacerbation Coding Level of Care Code Acute Code for Chg Fwd High MDM includes number and complexity of problems actively addressed during encounter, amount and/or complexity of data reviewed/ordered and described risk of complication, morbidity or mortality of management as documented Diagnoses Community acquired pneumonia J18.9 Laterality: right Lung location: lower lobe of lung Swelling of lower extremity M79.89 Other emphysema J43.8 COPD type: emphysema Emphysema type: other Chronic respiratory failure with hypoxia, on home O2 therapy J96.11; Z99.81
--- NOTE | 2024-01-05 18:02 | USCV_ITS ---
Nadia Staley Age: 88 Gender: F : 1935 Exam Date: 01/05/2024 19:01 Ordering Phys: Ashlie Holbrook MD Technologist: Maxime Griffiths [place]am [place] [facility] [place]: CHF BP: 129 / 73 HR: 101 Rhythm: Sinus Technical Quality: Adequate MEASUREMENTS (Male / Female) Normal Values 2D ECHO LV Diastolic Diameter PLAX 3.2 cm 4.2 - 5.9 / 3.9 - 5.3 cm IVS Diastolic Thickness 1.6 cm 0.6 - 1.0 / 0.6 - 0.9 cm IVS Systolic Thickness 1.8 cm LVPW Diastolic Thickness 1.5 cm 0.6 - 1.0 / 0.6 - 0.9 cm LVPW Systolic Thickness 2.3 cm LVOT Diameter 2.0 cm LV Ejection Fraction 2D Teich 72.8 % LV Ejection Fraction MOD 2C 72.2 % LV Ejection Fraction 2C AL 73.8 % LA Diameter 3.2 cm RA Systolic Volume 4C AL 45.1 ml RA Systolic Volume 4C MOD 45.3 ml LA Sys Volume AL 40.0 cm cubed LA Sys Volume Index AL 21.8 cm cubed/m squared Aorta at Sinotubular Diameter 1.8 cm IVC Diameter 1.8 cm M-MODE LA Ao Ratio MM 1.5 AV Cusp Separation MM 1.1 cm DOPPLER AV Peak Velocity 211.0 cm/s LVOT Peak Velocity 108.0 cm/s AV Area Cont Eq vti 2.0 cm squared AV Area Cont Eq pk 1.6 cm squared MV Peak Velocity 152.0 cm/s MV Area PHT 6.1 cm squared Mitral E to A Ratio 0.8 TV Peak Velocity 381.3 cm/s TR Peak Velocity 394.0 cm/s TR Peak Gradient 62.1 mmHg TR Mean Velocity 300.0 cm/s TR Mean Gradient 39.5 mmHg TR Velocity Time Integral 104.9 cm PV Peak Velocity 108.0 cm/s RV Ejection Time 0.3 s FINDINGS Left Ventricle Normal left ventricular size, systolic function and wall thickness, with no regional wall motion abnormalities. Grade I/IV diastolic dysfunction (abnormal relaxation filling pattern), normal to mildly elevated filling pressures. Left ventricular ejection fraction is estimated at 65 %. Right Ventricle Normal right ventricular size and systolic function. Right Atrium The right atrium is normal in size. Left Atrium The left atrium is normal in size. Mitral Valve Structurally normal mitral valve. Trace mitral valve regurgitation. Aortic Valve Structurally normal trileaflet aortic valve. Mild aortic valve calcification. Aortic valve sclerosis without stenosis. Tricuspid Valve Structurally normal tricuspid valve. [id number] tricuspid valve regurgitation. Pulmonic Valve Pulmonic valve not well visualized. Pericardium Normal pericardium without effusion. Aorta Normal ascending aorta dimension. IVC The inferior vena cava appears normal. CONCLUSIONS Normal left ventricular size, systolic function and wall thickness, with no regional wall motion abnormalities. Grade I/IV diastolic dysfunction (abnormal relaxation filling pattern), normal to mildly elevated filling pressures. Left ventricular ejection fraction is estimated at 65 %. Structurally normal mitral valve. Trace mitral valve regurgitation. Structurally normal trileaflet aortic valve. Mild aortic valve calcification. Aortic valve sclerosis without stenosis. There are no prior echocardiogram studies to compare. Dr. Kevin Martinez MD (Electronically Signed) Final Date: 06 January 2024 09:15 S
[2024-01-06] VITALS (13 sets, daily range): BP systolic 104–135; BP diastolic 59–73; PULSE 93–137; RESP 16–32; TEMP 36.4–37.2; O2SAT 91–97
[2024-01-06] MEDS: levalbuterol 0.63 mg/3 mL Neb 0.630000000000000004 MG INHALATION ×4 (02:33→21:29)
[2024-01-06] MEDS: ipratropium 0.5 mg/2.5 mL Neb INHALATION ×4 (02:33→21:29)
[2024-01-06] MEDS: piperacillin-tazobactam 3.375 GM in sodium chloride 0.9% (plus) 50 ML IV ×3 (06:23→23:02)
[2024-01-06 06:43] LABS: Basophils # 0.1 10^3/uL (0.0-0.1); Basophils % 0.3 %; Eosinophils % 0.2 %; Hematocrit 30.2 % (36-47); Lymphocytes % 5.2 %; Mean Corpuscular HGB Conc 29.1 g/dL (30-55); Mean Corpuscular Hemoglobin 28.2 pg (27-33); Mean Corpuscular Volume 96.8 fl (85-98); Mean Platelet Volume 10.4 fL (7.4-10.4); Monocytes # 1.5 10^3/uL (0.2-0.9); Neutrophils # 15.62 10^3/uL (1.8-7.7); Neutrophils % 85.7 %; Nucleated Red Blood Cells % 0 %; Platelet Count 216 10^3/cmm (157-399); Red Blood Count 3.12 10^6/uL (3.85-5.65); Red Cell Distribution Width 15.1 % (12.1-15.1); White Blood Count 18.23 10^3/uL (3.29-11.43)
[2024-01-06 07:35] LABS: Alanine Aminotransferase 15 U/L (0-33); Albumin Level 2.9 g/dL (3.5-5.2); Alkaline Phosphatase 78 U/L (35-105); Aspartate Amino Transferase 28 U/L (0-32); Blood Urea Nitrogen 25 mg/dL (8-23); Calcium 8.5 mg/dL (8.5-10.5); Carbon Dioxide 31 mmol/L (22-29); Chloride 99 mmol/L (98-107); Creatinine Clr Calc Pharmacy 36.8128; Glucose 106 mg/dL (65-115); Osmolality Calculated 293 mOsm/kg (285-295); Sodium 139 mmol/L (136-145); Total Bilirubin 0.3 mg/dL (0.15-1.2); Total Protein 5.9 g/dL (6.6-8.7)
[2024-01-06] MEDS: budesonide 0.5 mg/2 mL Neb INHALATION ×2 (08:58→21:29)
[2024-01-06] MEDS: azithromycin 250 mg Tablet 500 MG PO (09:19)
[2024-01-06] MEDS: enoxaparin 30 mg/0.3 mL Syringe SUBCUT (09:20)
[2024-01-06] MEDS: pantoprazole DR 40 mg Tablet PO (09:20)
--- NOTE | 2024-01-06 09:24 | PC.CHAP ---
Pastoral Care Encounter/Spiritual Assessment Type of Contact [] Declined furnace combination analyst visit [] Patient/Family/Request visit [] Outpatient visit [] Follow-up visit [] Physician referral [] Code/Alert [x] Routine visit [] Staff referral [] Actively dying [] Patient sleeping [] Family support [] [] Out of room [] Palliative care [] [] Receiving care in room [] Pre-surgical visit [] Trauma [] Long length of stay [] ICU visit [] Other: Relational/Emotional Strength [] Patient feels connected with others/family/visitors/staff [] Distress [] Loneliness/isolation [] Abandonment Spirituality of Patient [x] Person of Marisa [] Attends Mandaen of their Marisa [x] Believes in Prayer [] Reads Bible or Confucianism materials [] There are Spiritual issues to be addressed 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 Interventions [x] Prayer [x] Active listening [] Non-anxious presence [] Spiritual/emotional support [] Crisis/trauma care [] Spiritual counseling [] Bereavement support [] Provided bereavement packet [x] Provided Bible/devotional materials [] Provided toy/stuffed animal, coloring book to patient or family member [] Provided Communion [] Anointing/[place] [] Salvation [x] Completed spiritual assessment [] Other: Impact on Illness or Injury [] Angry [] Fearful [] Anxious [] Often cries [] Exhaustion [] Unable to work [] Unable to attend faith [] Unable to walk/stand [] Unable to read [] Unable to drive [] Unable to eat/drink [] Unable to sleep [] Unable to be with family [] Patient intubated [] Other: Summary Time spent with patient 5 min
--- NOTE | 2024-01-06 13:25 | P.DS_ITS ---
Discharge Providers Date of Admission: 01/04/24 17:09 Date of Discharge: January 06, 2024 Attending Provider at Admission: Ashlie Holbrook MD Attending Provider at Discharge: Ashlie Holbrook MD Primary Care Provider: ANNEL Mckeon Diagnoses at Discharge Discharge Diagnosis (1) Community acquired pneumonia: Status: Acute Qualifiers: Laterality: right Lung location: lower lobe of lung Qualified Code(s): J18.9 - Pneumonia, unspecified organism (2) Swelling of lower extremity: Status: Acute (3) COPD (chronic obstructive pulmonary disease): Status: Acute Qualifiers: COPD type: emphysema Emphysema type: other Qualified Code(s): J43.8 - Other emphysema (4) Chronic respiratory failure with hypoxia, on home O2 therapy: Status: Acute Reason for Visit Reason for Visit: FALL Discharge Data Studies Completed and Pending Completed Studies During Hospitalization Category Date Time Status XR chest 1V portable [id number] Stat Exams 01/04/24 14:05 [place] [id number] Stat Ultrasound 01/04/24 17:39 Completed CV. echo complete* [id number] Routine Ultrasound 01/05/24 18:02 Completed Pending at discharge Category Date Time Status Blood Culture Stat Lab 01/04/24 15:02 Results MRSA [Methicillin Resistant S.aureu] Routine Lab 01/05/24 18:19 Received Radiology Impressions Chest X-Ray 01/04/24 14:05 IMPRESSION: 1. Increased opacity at the right lung base. Infectious process cannot be ruled out. 2. Emphysematous lung changes. 3. 0.7 centimeters right mid lung opacity. Venous Duplex 01/04/24 17:39 IMPRESSION: 1. No evidence of deep vein thrombosis. 2. 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 Laboratory Results WBC 18.23 10^3/uL (3.29-11.43) H 01/06/24 06:02 RBC 3.12 10^6/uL (3.85-5.65) L 01/06/24 06:02 Hgb 8.80 g/dL (11.27-16.99) L 01/06/24 06:02 Hct 30.2 % (36-47) L 01/06/24 06:02 MCV 96.8 fl (85-98) 01/06/24 06:02 MCH 28.2 pg (27-33) 01/06/24 06:02 MCHC 29.1 g/dL (30-55) L 01/06/24 06:02 RDW 15.1 % (12.1-15.1) 01/06/24 06:02 Plt Count 216 10^3/cmm (157-399) 01/06/24 06:02 MPV 10.4 fL (7.4-10.4) 01/06/24 06:02 Neut % (Auto) 85.7 % 01/06/24 06:02 Lymph % (Auto) 5.2 % 01/06/24 06:02 [place] % (Auto) 8.0 % 01/06/24 06:02 Eos % (Auto) 0.2 % 01/06/24 06:02 Baso % (Auto) 0.3 % 01/06/24 06:02 Neut # (Auto) 15.62 10^3/uL (1.8-7.7) H 01/06/24 06:02 Lymph # (Auto) 1.0 10^3/uL (0.8-4.8) 01/06/24 06:02 [place] # (Auto) 1.5 10^3/uL (0.2-0.9) H 01/06/24 06:02 Eos # (Auto) 0.0 10^3/uL (0.0-0.8) 01/06/24 06:02 Baso # (Auto) 0.1 10^3/uL (0.0-0.1) 01/06/24 06:02 Nucleated RBC % (auto) 0 % 01/06/24 06:02 Nucleated RBCs # 0.0 /100WBC 01/06/24 06:02 D-Dimer 0.80 ug/mLFEU (0-0.59) H 01/04/24 15:02 Sodium 139 mmol/L (136-145) 01/06/24 06:02 Potassium 4.0 mmol/L (3.5-5.1) 01/06/24 06:02 Chloride 99 mmol/L (98-107) 01/06/24 06:02 Carbon Dioxide 31 mmol/L (22-29) H 01/06/24 06:02 Anion Gap 13.0 (5-19) 01/06/24 06:02 BUN 25 mg/dL (8-23) H 01/06/24 06:02 Creatinine 1.0 mg/dL (0.5-0.9) H 01/06/24 06:02 GFR Calculation Not Reportable 01/06/24 06:02 Glucose 106 mg/dL (65-115) 01/06/24 06:02 Calculated Osmolality 293 mOsm/kg (285-295) 01/06/24 06:02 Lactic Acid 1.7 mmol/L (0.5-2.2) 01/04/24 13:45 Calcium 8.5 mg/dL (8.5-10.5) 01/06/24 06:02 Total Bilirubin 0.3 mg/dL (0.15-1.2) 01/06/24 06:02 AST 28 U/L (0-32) 01/06/24 06:02 ALT 15 U/L (0-33) 01/06/24 06:02 Alkaline Phosphatase 78 U/L (35-105) 01/06/24 06:02 Troponin T Baseline 43 ng/L (0-10) H 01/04/24 18:31 Troponin T 120 Minute 41.05 ng/L (0-10) H 01/04/24 20:39 Delta Troponin T -1.95 ABS# (0-10) L 01/04/24 20:39 Troponin T Hi Sens 6Hr 50.99 ng/L (0-10) H 01/05/24 00:07 Troponin T Hi Sens 6Hr Delta 7.99 ng/L (0-12) 01/05/24 00:07 NT-Pro-B Natriuret Pep 196 pg/mL (0-450) 01/04/24 13:45 Total Protein 5.9 g/dL (6.6-8.7) L 01/06/24 06:02 Albumin 2.9 g/dL (3.5-5.2) L 01/06/24 06:02 Globulin 3.0 g/dL (1.3-4.6) 01/06/24 06:02 Procalcitonin 0.18 ng/mL (0-0.5) 01/04/24 13:45 Urine Color Yellow (Yellow) 01/04/24 15:10 Urine Appearance Clear (CLEAR) 01/04/24 15:10 Urine pH 5 (5-7) 01/04/24 15:10 Ur Specific [place] 1.020 (1.005-1.030) 01/04/24 15:10 Urine Protein Neg (Negative) 01/04/24 15:10 Urine Glucose (UA) Norm (Normal) 01/04/24 15:10 Urine Ketones 1+ (Negative) H 01/04/24 15:10 Urine Blood 2+ (Negative) H 01/04/24 15:10 Urine Nitrate Negative (Negative) 01/04/24 15:10 Urine Bilirubin Neg (Negative) 01/04/24 15:10 Urine Urobilinogen Norm mg/dL (Negative) 01/04/24 15:10 Ur Leukocyte Esterase 1+ (Negative) H 01/04/24 15:10 Urine RBC 5-10 /hpf (0-2) H 01/04/24 15:10 Urine WBC 15-25 /hpf (0-5) H 01/04/24 15:10 Ur Squamous Epith Cells 0-4 /hpf (0-5) H 01/04/24 15:10 Amorphous Sediment Not Reportable 01/04/24 15:10 Urine Bacteria 2+ /hpf (NONE) H 01/04/24 15:10 Influenza Type A Ag negative (Negative) 01/04/24 13:45 Influenza Type B Ag negative (Negative) 01/04/24 13:45 SARS-CoV-2 Ag (Rapid) negative (Negative) 01/04/24 13:45 Vitals Last Vital Signs Temp 97.7 F 01/06/24 12:00 Pulse 114 H 01/06/24 12:00 Resp 16 01/06/24 12:00 BP 111/67 01/06/24 12:00 Pulse Ox 92 01/06/24 12:00 O2 Del Method Nasal Cannula 01/06/24 12:00 O2 Flow Rate 3 01/06/24 08:59 Discharge Plan Discharge Patient Disposition: Home Condition: Stable Prescriptions: No Action (DME) oxygen 3.5L See Rx Instructions .Route .MEDSUPPLY Qty: 1 0RF Rx Instructions: As directed fluticasone propion-salmeterol [Advair Diskus] 250-50 mcg/dose blister with device 1 inh inhalation BID 30 Days Qty: 60 5RF Rx Instructions: 340B, pt does NOT Have insurance CAN DO BRAND NAME IF CHEAPER furosemide [Lasix] 20 mg tablet 10 - 20 mg PO DAILY 30 Days Qty: 30 5RF lorazepam 0.5 mg tablet 0.25 - 0.5 mg PO DAILY PRN (Reason: anxiety) 30 Days Qty: 30 5RF (DME) Aeroneb Go Nebulizer Misc See Rx Instructions .Route Qty: 1 0RF Rx Instructions: As directed ropinirole 0.25 mg tablet See Rx Instructions .ROUTE .COMPLEX Qty: 30 0RF Dose Instruction: TAKE 1 TO 2 TABLETS BY MOUTH ONCE DAILY NEEDED FOR RESTLESS LEGS Rx Instructions: TAKE 1 TO 2 TABLETS BY MOUTH ONCE DAILY NEEDED FOR RESTLESS LEGS multivitamin Tablet 1 tab PO QAM Vitamin D3 50 mcg (2,000 unit) Tablet 50 mcg PO DAILY levalbuterol HCl 1.25 mg/3 mL solution for nebulization 1.25 mg inhalation BID Referrals: Ayanna Pennington FNP [Primary Care Provider] - 01/09/24 10:20 am Patient Instructions: Opioid Safety Coding Level of Care Code Acute Code for Chg Fwd Diagnoses Community acquired pneumonia J18.9 Laterality: right Lung location: lower lobe of lung Swelling of lower extremity M79.89 Other emphysema J43.8 COPD type: emphysema Emphysema type: other Chronic respiratory failure with hypoxia, on home O2 therapy J96.11; Z99.81
--- NOTE | 2024-01-06 15:28 | PC.SOCIAL ---
IMM Updated Updated pt on IMM. No questions voiced. Provided pt a copy. Initialed, dated, & timed a copy & placed in chart.
--- NOTE | 2024-01-06 16:55 | P.PN_ITS ---
Subjective 2 Subjective: No acute overnight events noted Medications: Reviewed: Yes Vitals/I&O/Wt Last Vital Signs Temp 98.1 F 01/06/24 16:00 Pulse 98 01/06/24 16:00 Resp 18 01/06/24 16:00 BP 125/66 01/06/24 16:00 Pulse Ox 96 01/06/24 16:00 O2 Del Method Nasal Cannula 01/06/24 16:00 O2 Flow Rate 4 01/06/24 13:34 01/06/24 01/06/24 01/06/24 06:59 14:59 22:59 Intake Total 170 1909 531.667 / 531.667 Balance 170 1909 531.667 / 531.667 Weight last 48 hrs Weight 77.706 kg Weight 74.525 kg Weight 75.931 kg Physical Exam 2 Narrative: She is alert awake oriented x 3 not in acute distress Chest clear to auscultation bilaterally, occasional wheezing heard Cardiovascular normal heart sounds no murmurs Abdomen soft nondistended nontender normal bowel sounds Extremities no edema noted bilaterally Data 01/06/24 06:02 01/06/24 06:02 Micro: Microbiology 01/04/24 15:10 Urine Culture - Final Urine,Clean Catch Staphylococcus epidermidis 01/06/24 09:25 Bacterial Antigens - Final Urine,Voided 01/04/24 15:02 Blood Culture - Preliminary Blood NEGATIVE TO DATE 01/04/24 15:00 Blood Culture - Preliminary Blood NEGATIVE TO DATE A&P Assessment and plan (1) Community acquired pneumonia: Qualifiers: Laterality: right Lung location: lower lobe of lung Qualified Code(s): J18.9 - Pneumonia, unspecified organism (2) Chronic respiratory failure with hypoxia, on home O2 therapy: (3) COPD (chronic obstructive pulmonary disease): Qualifiers: COPD type: emphysema Emphysema type: other Qualified Code(s): J43.8 - Other emphysema Plan Community-acquired pneumonia- Continue IV vancomycin Zosyn and azithromycin. Leukocytosis improving from 22-18 today ARF resolved with creatinine of 1.0 2D echo done which showed no significant abnormalities She is feeling and doing better, clinically improving, possible discharge to home in a.m. Attestations 2 Medical Necessity Statement*: Needs continued hospitalization for IV antibiotics, anticipatory discharge tomorrow morning Time Spent in Patient Care: 20 minutes Coding Level of Care Code Acute Code for Chg Fwd Diagnoses Community acquired pneumonia J18.9 Laterality: right Lung location: lower lobe of lung Chronic respiratory failure with hypoxia, on home O2 therapy J96.11; Z99.81 Other emphysema J43.8 COPD type: emphysema Emphysema type: other Time Spent (min) 20
--- NOTE | 2024-01-06 22:13 | ECG_ITS ---
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 Measurements Intervals [place] Rate: 131 P: 0 VT: 0 QRS: 79 QRSD: 95 T: -38 QT: 267 QTc: 394 Interpretive Statements ATRIAL FLUTTER WITH RAPID VENTRICULAR RESPONSE NONSPECIFIC ST & T-WAVE ABNORMALITY WARNING: DATA QUALITY MAY AFFECT INTERPRETATION Compared to ECG 01/04/2024 23:27:10 Sinus tachycardia no longer present T-wave abnormality still present Electronically Signed On 01-07-2024 7:25:12 CDT by Minor Elliott M.D. [email or web address]
[2024-01-06] MEDS: dilTIAZem 5 mg/mL SDV 5 mL 10 MG IVP (22:38)
--- NOTE | 2024-01-06 22:44 | PC.NURSE ---
Pt noted to have tachycardia and what appeared to be a-fib or a-flutter on telemetry. EKG performed which showed a-flutter with a rate of 131. Notified Dr. Mullins of new a-flutter without history and received orders for cardizem 10mg IVP ONCE.
[2024-01-07] VITALS (17 sets, daily range): BP systolic 109–138; BP diastolic 62–80; PULSE 82–139; RESP 17–31; TEMP 36.4–36.7; O2SAT 90–99
[2024-01-07] MEDS: dilTIAZem 60 mg Tablet PO ×4 (00:06→22:38)
[2024-01-07] MEDS: vancomycin 1,250 MG/250 ML PIGGYBACK 250 MG IV (00:12)
[2024-01-07] MEDS: levalbuterol 0.63 mg/3 mL Neb 0.630000000000000004 MG INHALATION ×4 (02:40→20:02)
[2024-01-07] MEDS: ipratropium 0.5 mg/2.5 mL Neb INHALATION ×4 (02:40→20:02)
[2024-01-07] MEDS: piperacillin-tazobactam 3.375 GM in sodium chloride 0.9% (plus) 50 ML IV ×3 (06:05→22:20)
[2024-01-07] MEDS: pantoprazole DR 40 mg Tablet PO (08:46)
[2024-01-07] MEDS: azithromycin 250 mg Tablet 500 MG PO (08:46)
[2024-01-07] MEDS: enoxaparin 30 mg/0.3 mL Syringe SUBCUT (08:46)
[2024-01-07] MEDS: budesonide 0.5 mg/2 mL Neb INHALATION ×2 (08:53→20:02)
[2024-01-07 09:29] LABS: Basophils % 0.2 %; Eosinophils # 0.1 10^3/uL (0.0-0.8); Eosinophils % 0.5 %; Hematocrit 32.1 % (36-47); Lymphocytes # 0.8 10^3/uL (0.8-4.8); Lymphocytes % 5.3 %; Mean Corpuscular HGB Conc 29.9 g/dL (30-55); Mean Corpuscular Hemoglobin 27.8 pg (27-33); Mean Platelet Volume 10.5 fL (7.4-10.4); Monocytes # 1.3 10^3/uL (0.2-0.9); Monocytes % 8.7 %; Neutrophils # 12.66 10^3/uL (1.8-7.7); Neutrophils % 84.6 %; Nucleated Red Blood Cells % 0 %; Platelet Count 279 10^3/cmm (157-399); Red Blood Count 3.45 10^6/uL (3.85-5.65); Red Cell Distribution Width 14.7 % (12.1-15.1); White Blood Count 14.97 10^3/uL (3.29-11.43)
[2024-01-07 09:47] LABS: Anion Gap 12.2 (5-19); Blood Urea Nitrogen 20 mg/dL (8-23); Calcium 8.5 mg/dL (8.5-10.5); Carbon Dioxide 33 mmol/L (22-29); Chloride 100 mmol/L (98-107); Creatinine Clr Calc Pharmacy 36.8128; Glucose 195 mg/dL (65-115); Osmolality Calculated 300 mOsm/kg (285-295); Potassium 4.2 mmol/L (3.5-5.1); Sodium 141 mmol/L (136-145)
[2024-01-07] MEDS: ropinirole 0.25 mg Tablet PO (10:44)
[2024-01-07] MEDS: LORazepam 0.5 mg Tablet PO (12:02)
[2024-01-07 13:34] LABS: Methicillin-Resist S.aureu PCR NOT DETECTED (NOT DETECTED)
--- NOTE | 2024-01-07 14:50 | XR_ITS ---
WS: [id number] XR chest 1V portable [id number] REASON FOR EXAM: SOB FINDINGS: The heart size is at the upper limits of normal. Compared to the examination of 01/04/2024, the patient has developed diffuse reticular interstitial negrito g opacities in both lungs superimposed on the more focal infiltrate in the base of the right lung. The examination is otherwise unchanged. XR/XR chest 1V portable [id number] IMPRESSION: Interval development of diffuse interstitial reticular lung opacities. Most lik milind explanation is pulmonary edema.
--- NOTE | 2024-01-07 14:55 | P.PN_ITS ---
Subjective 2 Subjective: Overload she was found to be tachycardic/in atrial flutter and received IV Cardizem 10 mg x 1 and p.o. Cardizem 60 mg x 1 at 12 midnight. This morning she was found to be in rate controlled a flutter. She received her p.o. Cardizem dose at 730 this morning and has been rate controlled since then. Saw her at bedside this morning she was feeling normal and was alert awake and oriented x 3. This afternoon, patient's daughter at bedside endorses she looked more confused, has been having hallucinations, her breathing has been worse as compared to yesterday and she is trying to get out of her bed. On examination she looked confused, disoriented, short of breath, unable to speak in full sentences, chest exam revealed bilateral crackles and wheezing, her chest exam was clear this morning. Medications: Reviewed: Yes Vitals/I&O/Wt Last Vital Signs Temp 97.6 F 01/07/24 11:53 Pulse 88 01/07/24 13:53 Resp 20 H 01/07/24 13:45 BP 136/73 01/07/24 11:53 Pulse Ox 96 01/07/24 13:45 O2 Del Method Nasal Cannula 01/07/24 13:45 O2 Flow Rate 4.5 01/07/24 13:45 01/06/24 01/07/24 01/07/24 22:59 06:59 14:59 Intake Total 288.333 / 820.000 780.000 / 1600.000 530 / 530 Balance 288.333 / 820.000 780.000 / 1600.000 530 / 530 Weight last 48 hrs Weight 77.706 kg Weight 77.706 kg Physical Exam 2 Narrative: She is awake and confused oriented x 2 Chest air entry equal on both sides, bilateral crackles and wheezing present new as compared to previous exam Cardiovascular normal heart sounds no murmurs Abdomen soft nontender nondistended normal bowel sounds Extremities bilateral 1+ pitting edema present Data 01/07/24 08:47 01/07/24 08:47 Micro: Microbiology 01/04/24 15:10 Urine Culture - Final Urine,Clean Catch Staphylococcus epidermidis 01/06/24 09:25 Bacterial Antigens - Final Urine,Voided A&P Assessment and plan (1) Community acquired pneumonia: Qualifiers: Laterality: right Lung location: lower lobe of lung Qualified Code(s): J18.9 - Pneumonia, unspecified organism (2) Swelling of lower extremity: (3) COPD (chronic obstructive pulmonary disease): Qualifiers: COPD type: emphysema Emphysema type: other Qualified Code(s): J43.8 - Other emphysema (4) Chronic respiratory failure with hypoxia, on home O2 therapy: Plan 88-year-old female currently being treated for community-acquired pneumonia and COPD exacerbation, now became confused and delirious likely secondary to fluid overload versus COPD exacerbation. Her leukocytosis has been improving in response to current antibiotics IV vancomycin Zosyn and azithromycin. Chest x-ray done this afternoon for acute change in mental status and shortness of breath consistent with fluid overload. 2D echo done this admission showed LVEF 60 to 65%, grade 1 diastolic dysfunction. Given 1 dose of IV Lasix 40 mg stat ABGs consistent with COPD versus CHF exacerbation, will start on BiPAP for now P.o. Mucinex 600 mg twice a day DuoNebs every 6 hours Check urine analysis. Will restart her home medication p.o. Lasix 20 mg daily. Will give IM Ativan 0.5 mg stat for delirium. Continue to monitor. Attestations 2 Medical Necessity Statement*: She needs continued hospitalization for IV antibiotics and management of fluid overload and new onset delirium Time Spent in Patient Care: 40 minutes Coding Level of Care Code Acute Code for [facility] Diagnoses Community acquired pneumonia J18.9 Laterality: right Lung location: lower lobe of lung Swelling of lower extremity M79.89 Other emphysema J43.8 COPD type: emphysema Emphysema type: other Chronic respiratory failure with hypoxia, on home O2 therapy J96.11; Z99.81 Time Spent (min) 40
[2024-01-07 15:10] LABS: ABG PH Result 7.34 (7.35-7.45); Alveolar-Arterial Oxygen Gradi 0.9 mmHg (5-10); Arterial Blood Gas Hematocrit 28.4 % (37-47); Base Excess ABG 8.1 mmol/L (-2.0-2.0); Blood Gas LPM 4.5 %; Blood Gas Operator Identificat GD; Blood Gas Sample Site Brachial, left; Blood Gas Sample Type Arterial; Carboxyhemoglobin 1.7 %THgb (0.4-20.1); HCO3 ABG 35.3 mmol/L (22-26); HGB O2 Sat 90.6 % (95-100); Ionized Calcium Level - ABG 1.2 mmol/L (1.1-1.4); Oxygen Device NC; Oxygen Saturation ABG 92.1; PO2 ABG 63.1 mmHg (80.0-100.0); Potassium Level - ABG 3.8 mmol/L (3.5-5.0); Total Hemoglobin 9.3 g/dL (12-16)
[2024-01-07 15:11] LABS: ABG PCO2 64.8 mmHg (35-45)
[2024-01-07] MEDS: ipratropium-albuterol 3 mL Neb INHALATION (15:43)
[2024-01-07] MEDS: FUROsemide 10 mg/mL SDV 4mL 40 MG IVP (15:54)
[2024-01-07] MEDS: LORazepam 2 mg/mL INJ 10 mL MDV 0.5 MG IM (16:07)
[2024-01-07 17:49] LABS: Add Urine Microscopic? NO; Charge for UA Resulting for Rev
[2024-01-07 18:03] LABS: Bilirubin Urine Neg (Negative); Blood Urine Neg (Negative); Glucose Urine UA Norm (Normal); Ketones Urine Negative (Negative); Leukocyte Esterase Urine Negative (Negative); Nitrate Urine Negative (Negative); Protein Urine Neg (Negative); Specific Gravity, Urine 1.015 (1.005-1.030); Urine Appearance Clear (CLEAR); Urine Color Yellow (Yellow); Urobilinogen Urine Norm (Negative); pH Urine 5 (5-7)
[2024-01-08] VITALS (15 sets, daily range): BP systolic 115–133; BP diastolic 63–72; PULSE 71–117; RESP 14–26; TEMP 36.8–37.1; O2SAT 90–99
[2024-01-08] MEDS: ipratropium 0.5 mg/2.5 mL Neb INHALATION ×4 (01:13→19:55)
[2024-01-08] MEDS: levalbuterol 0.63 mg/3 mL Neb 0.630000000000000004 MG INHALATION ×4 (01:13→19:55)
[2024-01-08 05:13] LABS: Basophils % 0.3 %; Eosinophils # 0.2 10^3/uL (0.0-0.8); Eosinophils % 1.6 %; Hematocrit 28.7 % (36-47); Lymphocytes # 0.9 10^3/uL (0.8-4.8); Lymphocytes % 8.8 %; Mean Corpuscular Hemoglobin 27.6 pg (27-33); Mean Platelet Volume 9.8 fL (7.4-10.4); Monocytes # 1.5 10^3/uL (0.2-0.9); Neutrophils # 7.93 10^3/uL (1.8-7.7); Neutrophils % 74.7 %; Nucleated Red Blood Cells % 0 %; Platelet Count 253 10^3/cmm (157-399); Red Blood Count 3.12 10^6/uL (3.85-5.65)
[2024-01-08 05:39] LABS: Anion Gap 12.4 (5-19); Blood Urea Nitrogen 20 mg/dL (8-23); Calcium 8.5 mg/dL (8.5-10.5); Carbon Dioxide 35 mmol/L (22-29); Chloride 98 mmol/L (98-107); Creatinine Clr Calc Pharmacy 40.3797; Glucose 103 mg/dL (65-115); Osmolality Calculated 297 mOsm/kg (285-295); Potassium 3.4 mmol/L (3.5-5.1); Sodium 142 mmol/L (136-145)
[2024-01-08] MEDS: piperacillin-tazobactam 3.375 GM in sodium chloride 0.9% (plus) 50 ML IV (05:59)
[2024-01-08] MEDS: budesonide 0.5 mg/2 mL Neb INHALATION ×2 (08:09→19:55)
[2024-01-08] MEDS: potassium chloride ER 20 mEq Tablet 40 MEQ PO ×2 (08:10→13:54)
[2024-01-08] MEDS: FUROsemide 20 mg Tablet PO (08:10)
[2024-01-08] MEDS: guaiFENesin 600 mg Tablet PO ×2 (08:10→17:14)
[2024-01-08] MEDS: dilTIAZem 60 mg Tablet PO ×3 (08:10→19:54)
[2024-01-08] MEDS: pantoprazole DR 40 mg Tablet PO (08:10)
[2024-01-08] MEDS: FUROsemide 10 mg/mL SDV 2mL 20 MG IVP (08:14)
[2024-01-08] MEDS: enoxaparin 30 mg/0.3 mL Syringe SUBCUT (08:14)
[2024-01-08] MEDS: levofloxacin-dextrose 5 % 750 MG/150 ML PREMIX 100 MG IV (08:26)
--- NOTE | 2024-01-08 12:41 | P.PN_ITS ---
Subjective 2 Subjective: Patient seen and examined at bedside this morning. Daughter present at the bedside informed that the patient slept well overnight, was calm, and breathing well. As per the nurse this morning she was well-oriented, not confused, and answering all the questions appropriately Vitals/I&O/Wt Last Vital Signs Temp 98.7 F 01/08/24 11:20 Pulse 100 01/08/24 11:20 Resp 22 H 01/08/24 11:20 BP 125/63 01/08/24 11:20 Pulse Ox 95 01/08/24 11:20 O2 Del Method Nasal Cannula 01/08/24 11:20 O2 Flow Rate 5 01/08/24 08:09 FiO2 40 01/08/24 08:17 01/07/24 01/08/24 01/08/24 22:59 06:59 14:59 Intake Total 50 / 580 50 / 630 422.917 / 422.917 Output Total 300 / 300 200 / 500 350 / 350 Balance -250 / 280 -150 / 130 72.917 / 72.917 Weight last 48 hrs Weight 75.75 kg Weight 77.706 kg Physical Exam 2 Narrative: She is awake and drowsy but arousable, oriented x 2 Chest air entry equal on both sides, no rhonchi or wheezing present Cardiovascular normal heart sounds no murmurs Abdomen soft nontender nondistended normal bowel sounds Extremities bilateral 1+ pitting edema present Data 01/08/24 04:26 01/08/24 04:26 A&P Assessment and plan (1) Community acquired pneumonia: Qualifiers: Laterality: right Lung location: lower lobe of lung Qualified Code(s): J18.9 - Pneumonia, unspecified organism (2) Swelling of lower extremity: (3) 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 Altered mental status resolving with IV diuresis for congestive heart failure Her leukocytosis has resolved. Will switch to IV Levaquin 750 mg daily. 2D echo done this admission showed LVEF 60 to 65%, grade 1 diastolic dysfunction. Continue Lasix 40 mg IV twice daily for now. Continue BiPAP for now. Check chest x-ray in a.m. P.o. Mucinex 600 mg twice a day DuoNebs every 6 hours. DVT prophylaxis with Lovenox PUD prophylaxis with Protonix 40 mg daily. She is DNR/DNI. Attestations 2 Medical Necessity Statement*: She needs continued hospitalization for IV antibiotics and management of fluid overload with IV diuresis and BiPAP. Time Spent in Patient Care: 20 minutes Coding Level of Care Code Acute Code for [facility] Fwd Diagnoses Community acquired pneumonia J18.9 Laterality: right Lung location: lower lobe of lung Swelling of lower extremity M79.89 Other emphysema J43.8 COPD type: emphysema Emphysema type: other Chronic respiratory failure with hypoxia, on home O2 therapy J96.11; Z99.81 Time Spent (min) 20
--- NOTE | 2024-01-08 15:04 | PC.SOCIAL ---
IMM Updated Updated pt on IMM. No questions voiced. Provided pt a copy. Initialed, dated, & timed copy in chart.
[2024-01-08] MEDS: FUROsemide 10 mg/mL SDV 4mL 40 MG IVP (19:54)
[2024-01-09] VITALS (16 sets, daily range): BP systolic 108–136; BP diastolic 62–74; PULSE 80–115; RESP 17–24; TEMP 36.7–37.8; O2SAT 93–98
[2024-01-09] MEDS: ipratropium 0.5 mg/2.5 mL Neb INHALATION ×4 (01:35→20:33)
[2024-01-09] MEDS: levalbuterol 0.63 mg/3 mL Neb 0.630000000000000004 MG INHALATION ×4 (01:36→20:33)
[2024-01-09] MEDS: dilTIAZem 60 mg Tablet PO ×3 (05:58→17:59)
[2024-01-09 06:25] LABS: Basophils % 0.3 %; Eosinophils # 0.1 10^3/uL (0.0-0.8); Eosinophils % 0.4 %; Hematocrit 31.5 % (36-47); Lymphocytes # 1.1 10^3/uL (0.8-4.8); Lymphocytes % 8.3 %; Mean Corpuscular HGB Conc 29.2 g/dL (30-55); Mean Corpuscular Hemoglobin 26.9 pg (27-33); Mean Corpuscular Volume 92.1 fl (85-98); Mean Platelet Volume 10.1 fL (7.4-10.4); Monocytes % 14.5 %; Neutrophils # 10.24 10^3/uL (1.8-7.7); Neutrophils % 75.5 %; Nucleated Red Blood Cells % 0 %; Platelet Count 297 10^3/cmm (157-399); Red Blood Count 3.42 10^6/uL (3.85-5.65); Red Cell Distribution Width 14.9 % (12.1-15.1); White Blood Count 13.56 10^3/uL (3.29-11.43)
[2024-01-09 06:46] LABS: Anion Gap 14.6 (5-19); Blood Urea Nitrogen 16 mg/dL (8-23); Calcium 8.8 mg/dL (8.5-10.5); Carbon Dioxide 36 mmol/L (22-29); Chloride 95 mmol/L (98-107); Creatinine Clr Calc Pharmacy 41.3508; Glucose 107 mg/dL (65-115); Magnesium 1.6 mg/dL (1.7-2.3); Osmolality Calculated 296 mOsm/kg (285-295); Potassium 3.6 mmol/L (3.5-5.1); Sodium 142 mmol/L (136-145)
--- NOTE | 2024-01-09 07:00 | XR_ITS ---
WS: [id number] XR chest 1V portable [id number] REASON FOR EXAM: CHF FINDINGS: Compared to previous examination of 01/04/2024 the opacities in the right lower lung demonstrate some r esolution. Right lung otherwise unchanged. Coarse reticular interstitial opacities and groundglass density in the left lower lung and along the periphery of the left lung demonstrate some increased opacity with confluence and indistinctness of t he left hemidiaphragm. No new findings. XR/XR chest 1V portable [id number] IMPRESSION: Improvement in the right lower lung with the left lung demonstrating somewhat i ncreased lung opacities.
[2024-01-09] MEDS: budesonide 0.5 mg/2 mL Neb INHALATION ×2 (08:02→20:33)
[2024-01-09] MEDS: FUROsemide 10 mg/mL SDV 4mL 40 MG IVP (08:28)
[2024-01-09] MEDS: enoxaparin 30 mg/0.3 mL Syringe SUBCUT (08:40)
[2024-01-09] MEDS: guaiFENesin 600 mg Tablet PO ×2 (08:40→17:59)
[2024-01-09] MEDS: magnesium oxide 400 mg tablet PO (08:40)
[2024-01-09] MEDS: pantoprazole DR 40 mg Tablet PO (08:40)
[2024-01-09] MEDS: ropinirole 0.25 mg Tablet PO (12:51)
--- NOTE | 2024-01-09 14:04 | PM.PN ---
Subjective Subjective: Overnight she slept well. She was off BiPAP saturating well on 3 L nasal cannula. She is more alert and oriented x 3. Denied any new complaints Medications: Reviewed: Yes Vitals/I&O/Wt Last Vital Signs Temp 98.0 F 01/09/24 11:17 Pulse 80 01/09/24 11:17 Resp 17 01/09/24 11:17 BP 118/74 01/09/24 11:17 Pulse Ox 95 01/09/24 11:17 O2 Del Method Nasal Cannula 01/09/24 11:17 O2 Flow Rate 3 01/09/24 08:03 FiO2 40 01/09/24 01:40 01/08/24 01/09/24 01/09/24 22:59 06:59 14:59 Intake Total 120 / 782.917 240 / 240 Output Total 250 / 250 Balance 120 / 432.917 -10 / -10 Weight last 48 hrs Weight 79.379 kg Weight 75.75 kg Physical Exam Narrative: She is awake and alert, oriented x 2 Chest air entry equal on both sides, no rhonchi or wheezing present Cardiovascular normal heart sounds no murmurs Abdomen soft nontender nondistended normal bowel sounds Extremities bilateral 1+ pitting edema present Data 01/09/24 05:59 01/09/24 05:59 A&P Assessment and plan (1) Community acquired pneumonia: Qualifiers: Laterality: right Lung location: lower lobe of lung Qualified Code(s): J18.9 - Pneumonia, unspecified organism (2) Swelling of lower extremity: (3) COPD (chronic obstructive pulmonary disease): Qualifiers: COPD type: emphysema Emphysema type: other Qualified Code(s): J43.8 - Other emphysema (4) Chronic respiratory failure with hypoxia, on home O2 therapy: (5) Acute CHF (congestive heart failure): Plan 88-year-old female currently being treated for community-acquired pneumonia and COPD exacerbation, became confused and delirious likely secondary to fluid overload. Altered mental status resolved with IV diuresis for congestive heart failure New onset leukocytosis likely reactive, currently afebrile will continue with IV Levaquin 750 mg daily for now. 2D echo done this admission showed LVEF 60 to 65%, grade 1 diastolic dysfunction. Continue Lasix 40 mg IV daily for now. Continue supplemental oxygen to keep saturation more than 90, chest x-ray showed improvement as compared to 01/06 P.o. Mucinex 600 mg twice a day DuoNebs every 6 hours. Check CBC BMP in a.m. DVT prophylaxis with Lovenox PUD prophylaxis with Protonix 40 mg daily. She is DNR/DNI. Attestations Medical Necessity Statement*: She needs continued hospitalization for IV antibiotics and management of fluid overload with IV diuresis and new onset leukocytosis Time Spent in Patient Care: 20 minutes Coding Level of Care Code Acute Code for [facility] Diagnoses Community acquired pneumonia J18.9 Laterality: right Lung location: lower lobe of lung Swelling of lower extremity M79.89 Other emphysema J43.8 COPD type: emphysema Emphysema type: other Chronic respiratory failure with hypoxia, on home O2 therapy J96.11; Z99.81 Acute CHF (congestive heart failure) I50.9 Time Spent (min) 20
[2024-01-10] VITALS (17 sets, daily range): BP systolic 107–140; BP diastolic 56–73; PULSE 79–101; RESP 15–22; TEMP 36.4–36.9; O2SAT 92–99
[2024-01-10] MEDS: ipratropium 0.5 mg/2.5 mL Neb INHALATION ×4 (02:40→20:29)
[2024-01-10] MEDS: levalbuterol 0.63 mg/3 mL Neb 0.630000000000000004 MG INHALATION ×4 (02:40→20:29)
[2024-01-10] MEDS: dilTIAZem 60 mg Tablet PO ×3 (04:56→17:56)
[2024-01-10] MEDS: budesonide 0.5 mg/2 mL Neb INHALATION ×2 (08:24→20:30)
[2024-01-10] MEDS: pantoprazole DR 40 mg Tablet PO (09:18)
[2024-01-10] MEDS: FUROsemide 20 mg Tablet PO (09:18)
[2024-01-10] MEDS: enoxaparin 30 mg/0.3 mL Syringe SUBCUT (09:18)
[2024-01-10] MEDS: guaiFENesin 600 mg Tablet PO ×2 (09:18→17:56)
[2024-01-10 10:09] LABS: Basophils # 0.1 10^3/uL (0.0-0.1); Basophils % 0.3 %; Eosinophils # 0.1 10^3/uL (0.0-0.8); Eosinophils % 0.5 %; Hematocrit 36.5 % (36-47); Lymphocytes % 6.8 %; Mean Corpuscular HGB Conc 29.9 g/dL (30-55); Mean Corpuscular Hemoglobin 27.3 pg (27-33); Mean Corpuscular Volume 91.3 fl (85-98); Mean Platelet Volume 9.7 fL (7.4-10.4); Monocytes # 1.5 10^3/uL (0.2-0.9); Monocytes % 10.3 %; Neutrophils # 11.77 10^3/uL (1.8-7.7); Neutrophils % 80.6 %; Nucleated Red Blood Cells % 0 %; Platelet Count 407 10^3/cmm (157-399); Red Cell Distribution Width 14.8 % (12.1-15.1); White Blood Count 14.61 10^3/uL (3.29-11.43)
[2024-01-10 10:24] LABS: Anion Gap 10.3 (5-19); Blood Urea Nitrogen 15 mg/dL (8-23); Chloride 92 mmol/L (98-107); Glucose 155 mg/dL (65-115); Osmolality Calculated 294 mOsm/kg (285-295); Potassium 3.3 mmol/L (3.5-5.1); Sodium 140 mmol/L (136-145)
[2024-01-10 10:32] LABS: Carbon Dioxide 41 mmol/L (22-29)
[2024-01-10] MEDS: potassium chloride ER 20 mEq Tablet 40 MEQ PO (10:57)
--- NOTE | 2024-01-10 13:50 | P.PN_ITS ---
Subjective 2 Subjective: No acute overnight events noted. She is doing well on 3 L nasal cannula. Medications: Reviewed: Yes Vitals/I&O/Wt Last Vital Signs Temp 97.5 F L 01/10/24 12:00 Pulse 88 01/10/24 13:27 Resp 20 H 01/10/24 13:27 BP 140/67 01/10/24 12:00 Pulse Ox 96 01/10/24 13:27 O2 Del Method Nasal Cannula 01/10/24 13:27 O2 Flow Rate 4 01/10/24 13:27 FiO2 40 01/10/24 00:45 01/09/24 01/10/24 01/10/24 22:59 06:59 14:59 Intake Total 840 / 1560 240 / 1800 Balance 840 / 1310 240 / 1550 Weight last 48 hrs Weight 77.882 kg Weight 79.379 kg Physical Exam 2 Narrative: She is awake and alert, oriented x 2 Chest air entry equal on both sides, no rhonchi or wheezing present Cardiovascular normal heart sounds no murmurs Abdomen soft nontender nondistended normal bowel sounds Extremities bilateral 1+ pitting edema present Data 01/10/24 10:00 01/10/24 10:00 Micro: Microbiology 01/04/24 15:02 Blood Culture - Final Blood NO GROWTH AFTER 5 DAYS 01/04/24 15:00 Blood Culture - Final Blood NO GROWTH AFTER 5 DAYS A&P Assessment and plan (1) Community acquired pneumonia: Qualifiers: Laterality: right Lung location: lower lobe of lung Qualified Code(s): J18.9 - Pneumonia, unspecified organism (2) Swelling of lower extremity: (3) COPD (chronic obstructive pulmonary disease): Qualifiers: COPD type: emphysema Emphysema type: other Qualified Code(s): J43.8 - Other emphysema (4) Chronic respiratory failure with hypoxia, on home O2 therapy: (5) Acute CHF (congestive heart failure): Plan 88-year-old female currently being treated for community-acquired pneumonia and COPD exacerbation, became confused and delirious likely secondary to fluid overload. Altered mental status resolved with IV diuresis for congestive heart failure Worsening leukocytosis of 14.6 , currently afebrile but with chest x-ray showing questionable right lower lung increased opacities will escalate antibiotics to IV Zosyn 3.375 mg every 8 hours. Will discontinue IV levofloxacin. In view of recent increase in right lower lung opacities, question arises about aspiration, will get a speech and swallow eval. 2D echo done this admission showed LVEF 60 to 65%, grade 1 diastolic dysfunction. Lasix changed to 20 mg p.o. daily P.o. Mucinex 600 mg twice a day DuoNebs every 6 hours. Check CBC BMP in a.m. DVT prophylaxis with Lovenox PUD prophylaxis with Protonix 40 mg daily. She is DNR/DNI. Attestations 2 Medical Necessity Statement*: She needs continued hospitalization for IV antibiotics and management of fluid overload with diuresis and new onset worsening leukocytosis Time Spent in Patient Care: 20 minutes Coding Level of Care Code [facility] Diagnoses Community acquired pneumonia J18.9 Laterality: right Lung location: lower lobe of lung Swelling of lower extremity M79.89 Other emphysema J43.8 COPD type: emphysema Emphysema type: other Chronic respiratory failure with hypoxia, on home O2 therapy J96.11; Z99.81 Acute CHF (congestive heart failure) I50.9 Time Spent (min) 20
[2024-01-10] MEDS: piperacillin-tazobactam 3.375 GM in sodium chloride 0.9% (plus) 50 ML IV ×2 (14:31→19:59)
[2024-01-11] VITALS (14 sets, daily range): BP systolic 114–132; BP diastolic 65–77; PULSE 81–109; RESP 18–24; TEMP 36.5–37; O2SAT 89–97
[2024-01-11] MEDS: dilTIAZem 60 mg Tablet PO ×4 (00:04→18:03)
[2024-01-11] MEDS: ipratropium 0.5 mg/2.5 mL Neb INHALATION ×4 (02:44→19:48)
[2024-01-11] MEDS: levalbuterol 0.63 mg/3 mL Neb 0.630000000000000004 MG INHALATION ×4 (02:44→19:48)
[2024-01-11] MEDS: piperacillin-tazobactam 3.375 GM in sodium chloride 0.9% (plus) 50 ML IV (04:44)
[2024-01-11 05:36] LABS: Basophils # 0.1 10^3/uL (0.0-0.1); Basophils % 0.4 %; Eosinophils # 0.1 10^3/uL (0.0-0.8); Hematocrit 34.1 % (36-47); Lymphocytes # 1.2 10^3/uL (0.8-4.8); Lymphocytes % 8.7 %; Mean Corpuscular HGB Conc 29.6 g/dL (30-55); Mean Corpuscular Hemoglobin 27.7 pg (27-33); Mean Corpuscular Volume 93.4 fl (85-98); Mean Platelet Volume 9.5 fL (7.4-10.4); Monocytes # 1.8 10^3/uL (0.2-0.9); Monocytes % 12.3 %; Nucleated Red Blood Cells % 0 %; Platelet Count 425 10^3/cmm (157-399); Red Blood Count 3.65 10^6/uL (3.85-5.65); Red Cell Distribution Width 14.8 % (12.1-15.1); White Blood Count 14.21 10^3/uL (3.29-11.43)
--- NOTE | 2024-01-11 06:37 | XRR_ITS ---
PROCEDURE INFORMATION: Exam: XR Chest Exam date and time: 01/11/2024 9:43 AM Age: 88 years old Clinical indication: Condition or disease; Lung condition and disease; Pneumonia; Additional info: Chf, pneumonia TECHNIQUE: Imaging protocol: Radiologic exam of the chest. Views: 1 view. COMPARISON: CR XR chest 1V portable [id number] 01/09/2024 7:04 AM FINDINGS: Lungs: There is extensive consolidation involving the left lung base and this has worsened significantly over the past 2 days. More faint interstitial infiltrate persists and remains stable in the right lung. Pleural spaces: Unremarkable. No pleural effusion. No pneumothorax. Heart/Mediastinum: Unremarkable. No cardiomegaly. Bones/joints: Unremarkable. XR/XR chest 1V portable [id number] IMPRESSION: Worsening left basilar pneumonia
[2024-01-11] MEDS: budesonide 0.5 mg/2 mL Neb INHALATION ×2 (07:23→19:48)
[2024-01-11] MEDS: cefTRIAXone 1,000 MG in sodium chloride 0.9% (plus) 50 ML 100 MG IV (08:10)
[2024-01-11] MEDS: guaiFENesin 600 mg Tablet PO ×2 (08:10→18:03)
[2024-01-11] MEDS: enoxaparin 40 mg/0.4 mL Syringe SUBCUT (08:10)
[2024-01-11] MEDS: pantoprazole DR 40 mg Tablet PO (08:10)
[2024-01-11] MEDS: FUROsemide 20 mg Tablet PO (08:10)
[2024-01-11] MEDS: potassium chloride ER 20 mEq Tablet 40 MEQ PO ×2 (10:49→16:25)
--- NOTE | 2024-01-11 11:05 | PM.PN ---
Subjective Subjective: No acute overnight events noted seen her at bedside this morning was complaining of sore mouth, but no new complaint of shortness of breath or dizziness. Medications: Reviewed: Yes Vitals/I&O/Wt Last Vital Signs Temp 97.7 F 01/11/24 07:46 Pulse 81 01/11/24 07:46 Resp 20 H 01/11/24 07:46 BP 114/65 01/11/24 07:46 Pulse Ox 93 01/11/24 07:46 O2 Del Method Nasal Cannula 01/11/24 07:46 O2 Flow Rate 4 01/11/24 07:20 FiO2 40 01/10/24 00:45 01/10/24 01/11/24 01/11/24 22:59 06:59 14:59 Intake Total 1050 / 1290 170 / 1460 170 / 170 Balance 1050 / 1290 170 / 1460 170 / 170 Weight last 48 hrs Weight 77.882 kg Weight 77.882 kg Physical Exam Narrative: She is awake and alert, oriented x 2 HEENT-erythematous tongue and gums and buccal mucosa, white coating present on tongue. Chest air entry equal on both sides, no rhonchi or wheezing present Cardiovascular normal heart sounds no murmurs Abdomen soft nontender nondistended normal bowel sounds Extremities bilateral 1+ pitting edema present Data 01/11/24 04:52 01/10/24 10:00 A&P Assessment and plan (1) Community acquired pneumonia: Qualifiers: Laterality: right Lung location: lower lobe of lung Qualified Code(s): J18.9 - Pneumonia, unspecified organism (2) Swelling of lower extremity: (3) COPD (chronic obstructive pulmonary disease): Qualifiers: COPD type: emphysema Emphysema type: other Qualified Code(s): J43.8 - Other emphysema (4) Chronic respiratory failure with hypoxia, on home O2 therapy: (5) Acute CHF (congestive heart failure): Plan 88-year-old female currently being treated for community-acquired pneumonia and COPD exacerbation, became confused and delirious likely secondary to fluid overload. Altered mental status resolved with IV diuresis for congestive heart failure Urine culture growing Staphylococcus epidermidis, resistant to Zosyn, will change antibiotics to IV ceftriaxone 1 g daily Mouth sores likely secondary to oral thrush. Will do Magic mouthwash, swish and swallow for now. Mildly improving leukocytosis of 14.2 , currently afebrile but with chest x-ray showing questionable right lower lung increased opacities, not really impressive for pneumonia, will discontinue Zosyn. In view of recent increase in right lower lung opacities, question arises about aspiration, will get a speech and swallow eval. 2D echo done this admission showed LVEF 60 to 65%, grade 1 diastolic dysfunction. Lasix changed to 20 mg p.o. daily DuoNebs every 6 hours. DVT prophylaxis with Lovenox PUD prophylaxis with Protonix 40 mg daily. She is DNR/DNI. Attestations Medical Necessity Statement*: She needs continued hospitalization for IV antibiotics and management of fluid overload with diuresis and new onset worsening leukocytosis, and UTI with IV antibiotics Time Spent in Patient Care: 20 minutes Coding Level of Care Code Acute Code for [facility] Fwd Diagnoses Community acquired pneumonia J18.9 Laterality: right Lung location: lower lobe of lung Swelling of lower extremity M79.89 Other emphysema J43.8 COPD type: emphysema Emphysema type: other Chronic respiratory failure with hypoxia, on home O2 therapy J96.11; Z99.81 Acute CHF (congestive heart failure) I50.9 Time Spent (min) 20
[2024-01-11] MEDS: nystatin 100,000 unit/mL UDC 5 mL 100000 UNIT PO ×3 (12:14→21:53)
[2024-01-11] MEDS: cefepime 1,000 MG in sodium chloride 0.9% (plus) 50 ML 100 MG IV (13:44)
[2024-01-11] MEDS: vancomycin 750 MG in sodium chloride 0.9% 250 ML 250 MG IV (13:55)
[2024-01-12] VITALS (18 sets, daily range): BP systolic 115–133; BP diastolic 61–92; PULSE 77–112; RESP 16–28; TEMP 36.5–36.7; O2SAT 87–98
[2024-01-12] MEDS: cefepime 1,000 MG in sodium chloride 0.9% (plus) 50 ML 100 MG IV (00:38)
[2024-01-12] MEDS: dilTIAZem 60 mg Tablet PO ×5 (00:41→23:09)
[2024-01-12] MEDS: ipratropium 0.5 mg/2.5 mL Neb INHALATION ×4 (01:23→20:33)
[2024-01-12] MEDS: levalbuterol 0.63 mg/3 mL Neb 0.630000000000000004 MG INHALATION ×4 (01:23→20:33)
[2024-01-12 05:19] LABS: Basophils # 0.1 10^3/uL (0.0-0.1); Basophils % 0.4 %; Eosinophils # 0.3 10^3/uL (0.0-0.8); Eosinophils % 2.2 %; Lymphocytes # 1.1 10^3/uL (0.8-4.8); Lymphocytes % 10.1 %; Mean Corpuscular HGB Conc 29.4 g/dL (30-55); Mean Corpuscular Hemoglobin 26.8 pg (27-33); Mean Corpuscular Volume 91.2 fl (85-98); Mean Platelet Volume 9.2 fL (7.4-10.4); Monocytes # 1.4 10^3/uL (0.2-0.9); Monocytes % 12.7 %; Neutrophils # 8.05 10^3/uL (1.8-7.7); Neutrophils % 72.1 %; Nucleated Red Blood Cells % 0 %; Platelet Count 416 10^3/cmm (157-399); Red Blood Count 3.51 10^6/uL (3.85-5.65); White Blood Count 11.18 10^3/uL (3.29-11.43)
[2024-01-12] MEDS: budesonide 0.5 mg/2 mL Neb INHALATION ×2 (07:55→20:33)
[2024-01-12] MEDS: enoxaparin 40 mg/0.4 mL Syringe SUBCUT (08:20)
[2024-01-12] MEDS: nystatin 100,000 unit/mL UDC 5 mL 100000 UNIT PO ×4 (08:20→20:57)
[2024-01-12] MEDS: guaiFENesin 600 mg Tablet PO ×2 (08:20→17:45)
[2024-01-12] MEDS: pantoprazole DR 40 mg Tablet PO (08:20)
[2024-01-12] MEDS: FUROsemide 20 mg Tablet PO (08:20)
--- NOTE | 2024-01-12 12:24 | PM.PN ---
Subjective Subjective: No acute overnight events noted seen at bedside this morning she is comfortable breathing normal, not in acute distress, admits mouth sores are better with swish and swallow.. Vitals/I&O/Wt Last Vital Signs Temp 97.9 F 01/12/24 11:52 Pulse 90 01/12/24 11:52 Resp 20 H 01/12/24 11:52 BP 115/62 01/12/24 11:52 Pulse Ox 93 01/12/24 11:52 O2 Del Method Nasal Cannula 01/12/24 11:52 O2 Flow Rate 5 01/12/24 07:58 FiO2 45 01/12/24 04:00 01/11/24 01/12/24 01/12/24 22:59 06:59 14:59 Intake Total 370 / 830 170 / 1000 240 / 240 Balance 370 / 830 170 / 1000 240 / 240 Weight last 48 hrs Weight 80.24 kg Weight 77.882 kg Physical Exam Narrative: She is awake and alert, oriented x 3 HEENT-erythematous tongue and gums and buccal mucosa, white coating present on tongue improving Chest air entry equal on both sides, no rhonchi or wheezing present Cardiovascular normal heart sounds no murmurs Abdomen soft nontender nondistended normal bowel sounds Extremities bilateral 1+ pitting edema present Data 01/12/24 05:08 01/10/24 10:00 A&P Assessment and plan (1) Community acquired pneumonia: Qualifiers: Laterality: right Lung location: lower lobe of lung Qualified Code(s): J18.9 - Pneumonia, unspecified organism (2) Swelling of lower extremity: (3) COPD (chronic obstructive pulmonary disease): Qualifiers: COPD type: emphysema Emphysema type: other Qualified Code(s): J43.8 - Other emphysema (4) Chronic respiratory failure with hypoxia, on home O2 therapy: (5) Acute CHF (congestive heart failure): Plan 88-year-old female currently being treated for community-acquired pneumonia and COPD exacerbation, became confused and delirious likely secondary to fluid overload. Altered mental status resolved with IV diuresis for congestive heart failure Mouth sores likely secondary to oral thrush. Will do Magic mouthwash, swish and swallow for now. Had worsening leukocytosis hence changed antibiotics to broad-spectrum with vancomycin and cefepime for left lower lobe worsening pneumonia and staph epidermidis UTI, currently afebrile. ID consult in a.m since she had worsening leukocytosis earlier for left lower lobe pneumonia which resolved and again had reappearance of pneumonia and leukocytosis. Leukocytosis count normal today at 11.1 2D echo done this admission showed LVEF 60 to 65%, grade 1 diastolic dysfunction. Lasix changed to 20 mg p.o. daily DuoNebs every 6 hours. DVT prophylaxis with Lovenox PUD prophylaxis with Protonix 40 mg daily. She is DNR/DNI. Attestations Medical Necessity Statement*: She needs continued hospitalization for IV antibiotics for worsening pneumonia and UTI Time Spent in Patient Care: 15 minutes Coding Level of Care Code Acute Code [facility] Diagnoses Community acquired pneumonia J18.9 Laterality: right Lung location: lower lobe of lung Swelling of lower extremity M79.89 Other emphysema J43.8 COPD type: emphysema Emphysema type: other Chronic respiratory failure with hypoxia, on home O2 therapy J96.11; Z99.81 Acute CHF (congestive heart failure) I50.9 Time Spent (min) 15
[2024-01-12] MEDS: cefepime 1,000 MG in sodium chloride 0.9% (plus) 100 ML 200 MG IV (12:28)
--- NOTE | 2024-01-12 20:23 | PC.NURSE ---
PICC line team arrived for the pt at this time.
--- NOTE | 2024-01-12 20:41 | XRR_ITS ---
PROCEDURE INFORMATION: Exam: XR Chest Exam date and time: 01/12/2024 9:10 PM Age: 88 years old Clinical indication: Device placement; Patient HX: Picc line placement TECHNIQUE: Imaging protocol: Radiologic exam of the chest. Views: 1 view. COMPARISON: CR (CHEST, ) 01/11/2024 9:43 AM FINDINGS: Tubes, catheters and devices: Right-sided central catheter tip projecting over the expected region of the superior vena cava. Lungs: Stable left mid to lower lung infiltrate. Stable interstitial prominence. Stable right mid to lower lung calcified granuloma. Pleural spaces: Small left pleural effusion. Heart/Mediastinum: No cardiomegaly. Bones/joints: No acute bony abnormality. XR/XR chest 1V portable [id number] IMPRESSION: Stable left mid to lower lung infiltrate.
--- NOTE | 2024-01-12 22:18 | PC.NURSE ---
Consent obtained by myself and the patient. All risk and benefits discussed. Risk included dvt and infection. RUE scanned with US and basilic vein was the best option. Vein was straight, 4 mm, and free of visible clot. Pt prepped and draped in usual sterile fashion. Using ral time US lidociane injected, vein accesed and picc floated into position. CHest xray obtained and waiting confirmation. EBl less then 5 ml.
[2024-01-12] MEDS: vancomycin 750 MG in sodium chloride 0.9% 250 ML 250 MG IV (23:05)
[2024-01-13] VITALS (18 sets, daily range): BP systolic 103–143; BP diastolic 62–78; PULSE 17–112; RESP 17–94; TEMP 36.4–36.9; O2SAT 87–96
[2024-01-13] MEDS: cefepime 1,000 MG in sodium chloride 0.9% (plus) 100 ML 200 MG IV ×2 (00:57→13:48)
[2024-01-13] MEDS: levalbuterol 0.63 mg/3 mL Neb 0.630000000000000004 MG INHALATION ×4 (02:48→19:52)
[2024-01-13] MEDS: ipratropium 0.5 mg/2.5 mL Neb INHALATION ×4 (02:48→19:52)
[2024-01-13] MEDS: dilTIAZem 60 mg Tablet PO ×3 (05:09→18:23)
[2024-01-13 05:58] LABS: Basophils # 0.1 10^3/uL (0.0-0.1); Basophils % 0.5 %; Eosinophils # 0.2 10^3/uL (0.0-0.8); Eosinophils % 1.5 %; Hematocrit 32.4 % (36-47); Lymphocytes # 1.2 10^3/uL (0.8-4.8); Lymphocytes % 9.4 %; Mean Corpuscular HGB Conc 29.6 g/dL (30-55); Mean Corpuscular Hemoglobin 26.7 pg (27-33); Mean Corpuscular Volume 90.3 fl (85-98); Mean Platelet Volume 9.4 fL (7.4-10.4); Monocytes # 1.3 10^3/uL (0.2-0.9); Monocytes % 10.2 %; Nucleated Red Blood Cells % 0 %; Platelet Count 456 10^3/cmm (157-399); Red Blood Count 3.59 10^6/uL (3.85-5.65); Red Cell Distribution Width 14.8 % (12.1-15.1); White Blood Count 12.79 10^3/uL (3.29-11.43)
[2024-01-13] MEDS: guaiFENesin 600 mg Tablet PO ×2 (08:01→18:23)
[2024-01-13] MEDS: FUROsemide 20 mg Tablet PO (08:02)
[2024-01-13] MEDS: pantoprazole DR 40 mg Tablet PO (08:02)
[2024-01-13] MEDS: budesonide 0.5 mg/2 mL Neb INHALATION ×2 (08:11→19:52)
[2024-01-13] MEDS: nystatin 100,000 unit/mL UDC 5 mL 100000 UNIT PO ×3 (08:30→20:26)
[2024-01-13] MEDS: enoxaparin 40 mg/0.4 mL Syringe SUBCUT (08:31)
--- NOTE | 2024-01-13 10:51 | P.PN_ITS ---
Subjective 2 Subjective: No acute overnight events noted seen at bedside this morning she is comfortable breathing normal, not in acute distress, no other significant abnormalities noted Vitals/I&O/Wt Last Vital Signs Temp 97.5 F L 01/13/24 08:00 Pulse 97 01/13/24 08:28 Resp 18 01/13/24 08:13 BP 122/75 01/13/24 08:00 Pulse Ox 93 01/13/24 08:13 O2 Del Method Nasal Cannula 01/13/24 08:13 O2 Flow Rate 5 01/13/24 08:13 FiO2 45 01/12/24 20:34 01/12/24 01/13/24 01/13/24 22:59 06:59 14:59 Intake Total 360 / 1180 350 / 1530 240 / 240 Balance 360 / 1180 350 / 1530 240 / 240 Weight last 48 hrs Weight 79.515 kg Weight 80.24 kg Physical Exam 2 Narrative: She is awake and alert, oriented x 3 HEENT-erythematous tongue and gums and buccal mucosa, white coating present on tongue improving Chest air entry equal on both sides, no rhonchi or wheezing present Cardiovascular normal heart sounds no murmurs Abdomen soft nontender nondistended normal bowel sounds Extremities bilateral 1+ pitting edema present Data 01/13/24 05:43 01/10/24 10:00 A&P Assessment and plan (1) Community acquired pneumonia: Qualifiers: Laterality: right Lung location: lower lobe of lung Qualified Code(s): J18.9 - Pneumonia, unspecified organism (2) Swelling of lower extremity: (3) COPD (chronic obstructive pulmonary disease): Qualifiers: COPD type: emphysema Emphysema type: other Qualified Code(s): J43.8 - Other emphysema (4) Chronic respiratory failure with hypoxia, on home O2 therapy: (5) Acute CHF (congestive heart failure): (6) UTI (urinary tract infection): Plan 88-year-old female currently being treated for community-acquired pneumonia and COPD exacerbation, became confused and delirious likely secondary to fluid overload. Altered mental status resolved with IV diuresis for congestive heart failure Had worsening leukocytosis hence changed antibiotics to broad-spectrum with vancomycin and cefepime for left lower lobe worsening pneumonia and staph epidermidis UTI, currently afebrile. ID consult today since she had worsening leukocytosis earlier for left lower lobe pneumonia which resolved and again had reappearance of pneumonia and leukocytosis. Leukocytosis count normal today at 11.1 Blood cultures negative, urine culture positive for Staphylococcus epidermidis 2D echo done this admission showed LVEF 60 to 65%, grade 1 diastolic dysfunction. Lasix changed to 20 mg p.o. daily DuoNebs every 6 hours. DVT prophylaxis with Lovenox PUD prophylaxis with Protonix 40 mg daily. She is DNR/DNI. Attestations 2 Medical Necessity Statement*: She needs continued hospitalization for IV antibiotics for worsening pneumonia and UTI Time Spent in Patient Care: 15 minutes Coding Level of Care Code Acute Code for [facility] Fwd Diagnoses Community acquired pneumonia J18.9 Laterality: right Lung location: lower lobe of lung Swelling of lower extremity M79.89 Other emphysema J43.8 COPD type: emphysema Emphysema type: other Chronic respiratory failure with hypoxia, on home O2 therapy J96.11; Z99.81 Acute CHF (congestive heart failure) I50.9 UTI (urinary tract infection) N39.0 Time Spent (min) 15
--- NOTE | 2024-01-13 11:24 | PC.SOCIAL ---
IMM updated Updated pt on IMM. No questions voiced. Provided pt a copy. Initialed, dated, & timed copy in chart.
[2024-01-13 19:57] LABS: Basophils # 0.1 10^3/uL (0.0-0.1); Basophils % 0.4 %; Eosinophils # 0.1 10^3/uL (0.0-0.8); Eosinophils % 0.8 %; Hematocrit 32.7 % (36-47); Lymphocytes # 0.9 10^3/uL (0.8-4.8); Lymphocytes % 5.9 %; Mean Corpuscular HGB Conc 29.7 g/dL (30-55); Mean Corpuscular Hemoglobin 26.9 pg (27-33); Mean Corpuscular Volume 90.6 fl (85-98); Mean Platelet Volume 9.4 fL (7.4-10.4); Monocytes # 1.4 10^3/uL (0.2-0.9); Neutrophils # 12.81 10^3/uL (1.8-7.7); Neutrophils % 80.6 %; Nucleated Red Blood Cells % 0 %; Platelet Count 428 10^3/cmm (157-399); Red Blood Count 3.61 10^6/uL (3.85-5.65); Red Cell Distribution Width 14.7 % (12.1-15.1); White Blood Count 15.88 10^3/uL (3.29-11.43)
[2024-01-13] MEDS: vancomycin 750 MG in sodium chloride 0.9% 250 ML 250 MG IV (22:05)
[2024-01-14] VITALS (15 sets, daily range): BP systolic 109–121; BP diastolic 53–74; PULSE 87–109; RESP 16–30; TEMP 36.3–36.4; O2SAT 84–93
[2024-01-14] MEDS: cefepime 1,000 MG in sodium chloride 0.9% (plus) 50 ML 200 MG IV (01:07)
[2024-01-14] MEDS: dilTIAZem 60 mg Tablet PO ×4 (01:07→17:02)
[2024-01-14] MEDS: levalbuterol 0.63 mg/3 mL Neb 0.630000000000000004 MG INHALATION ×4 (02:29→19:50)
[2024-01-14] MEDS: ipratropium 0.5 mg/2.5 mL Neb INHALATION ×4 (02:29→19:50)
[2024-01-14 03:29] LABS: Adenovirus Not Detected (NOT DETECT); Chlamydia Pneumoniae Not Detected (NOT DETECT); Coronavirus 229E,HKU1,NL63,OC4 Not Detected (NOT DETECT); Human Metapneumovirus Not Detected (NOT DETECT); Human Rhinovirus/Enterovirus Not Detected (NOT DETECT); Influenza A Not Detected (NOT DETECT); Influenza A H1 Not Detected (NOT DETECT); Influenza A H1-2009 Not Detected (NOT DETECT); Influenza A H3 Not Detected (NOT DETECT); Influenza B Not Detected (NOT DETECT); Mycoplasma Pneumoniae Not Detected (NOT DETECT); Parainfluenza Virus Type 1 Not Detected (NOT DETECT); Parainfluenza Virus Type 2 Not Detected (NOT DETECT); Parainfluenza Virus Type 3 Not Detected (NOT DETECT); Parainfluenza Virus Type 4 Not Detected (NOT DETECT); Respiratory Syncytial Virus A Not Detected (NOT DETECT); Respiratory Syncytial Virus B Not Detected (NOT DETECT); SARS-COV-2 Not Detected (NOT DETECT)
[2024-01-14 04:17] LABS: Basophils # 0.1 10^3/uL (0.0-0.1); Basophils % 0.7 %; Eosinophils # 0.1 10^3/uL (0.0-0.8); Eosinophils % 0.8 %; Hematocrit 35.2 % (36-47); Lymphocytes # 1.2 10^3/uL (0.8-4.8); Lymphocytes % 8.4 %; Mean Corpuscular HGB Conc 29.3 g/dL (30-55); Mean Corpuscular Hemoglobin 27.1 pg (27-33); Mean Corpuscular Volume 92.6 fl (85-98); Mean Platelet Volume 9.9 fL (7.4-10.4); Monocytes # 1.3 10^3/uL (0.2-0.9); Monocytes % 9.2 %; Neutrophils # 10.94 10^3/uL (1.8-7.7); Nucleated Red Blood Cells % 0 %; Platelet Count 396 10^3/cmm (157-399); Red Cell Distribution Width 14.9 % (12.1-15.1); White Blood Count 14.22 10^3/uL (3.29-11.43)
--- NOTE | 2024-01-14 05:25 | P.CONIM_ITS ---
Providers/Reason For Consult 2 Consulting Physician/Specialty*: Ashlie Holbrook MD/Infectious disease Reason for Consult*: persistent leukocytosis Requesting Physician: Maxine Hanson MD Attending Physician: Maxine Hanson MD Primary Care Provider: ANNEL Mckeon History of Present Illness History of Present Illness Nadia Staley is a 88 year old female resident of [facility], with a past medical history of COPD, chronically on 2 to 3 L/min supplemental oxygen at home. She presented to the emergency room on January 04, 2024 with chief complaints of worsening shortness of breath about 24 hours prior to admission. She had been diagnosed with a CHF exacerbation by her primary care physician 2 to 3 days prior and had been started on increased days of Lasix. Chest x-ray had shown right lower lobe pneumonia. Patient had leukocytosis of 24,000 and an increased oxygen requirement during the course of admission. She also suffered from a COPD exacerbation and CHF exacerbation during the course of this admission. Other complications have included A-fib with RVR, intermittent confusion related to encephalopathy and COPD exacerbation. She has required BiPAP. She has refused systemic steroids for her COPD exacerbation due to concern regarding side effects. She has previously had hallucinations with the same. Patient was started on treatment with ceftriaxone and azithromycin, broadened to piperacillin/tazobactam, vancomycin and azithromycin on January 05, 2024 due to clinical worsening and increased leukocytosis. Leukocytosis and improved from 24,000 to 10,000 on January 08, 2024. Treatment was then changed to levofloxacin between January 07 to January 09.On january 10, was changed to cefepime and vancomycin. Patient has been afebrile during admission course except for a Tmax of 100 Fahrenheit on January 09, 2024. Chest x-ray shows a left lower lobe infiltrate. Oxygen requirement has been between 3 to 6 L/min. Her leukocytosis has again started to trend upwards up to 15,000 today. She had PICC line placed on 01/11. She has completed speech evaluations on January 11, 2024, no overt noted aspiration. Review of Systems 2 General: Reports: 10 or more systems reviewed and unremarkable except in HPI and below Const: Denies: fever(s), chills or body aches Eyes: Denies: change in vision, blurry vision or photophobia ENMT: Reports: hoarseness; Denies: throat pain, enlarged tonsils, odynophagia or nasal congestion Card: Denies: chest pain, palpitations, irregular heart rhythm, edema, swelling of feet/ankles, lightheadedness, pre-syncope, dyspnea on exertion or orthopnea Resp: Denies: dyspnea, productive cough, non-productive cough, wheezing, stridor, pain on inspiration, change in phlegm color, hemoptysis or chest congestion GI: Denies: abdominal pain, nausea, vomiting, hematemesis, coffee ground emesis, dysphagia, heartburn, diarrhea, constipation, GI cramping, change in stool character, hematochezia or melena : Denies: flank pain, difficulty voiding, dysuria, urinary frequency, urinary urgency, urinary hesitancy or hematuria Musc: Denies: neck pain, back pain, extremity pain, joint swelling, joint warmth or deformity Neuro: Denies: headache(s), numbness in extremities, weakness in extremities, sensory changes, difficulty walking, frequent falls, dizziness, vertigo, behavioral changes, Slurred speech present or seizure-like activity Psych: Denies: anxiety, depression, suicidal ideation or homicidal ideation Endo: Denies: polyuria, polydipsia, tired all the time, cold intolerance or hot flashes Shaun/Lymph: Denies: easy bruising or easy bleeding Medications/Allergies Home Medications Medication Instructions Recorded Confirmed Last Taken Type nebulizers (Aeroneb Go Nebulizer) #1 ea 04/13/22 01/06/24 Unknown Rx oxygen #1 ea 06/07/22 01/06/24 Unknown Rx lorazepam 0.5 mg tablet 0.25 - 0.5 mg (0.5 - 1 x 0.5 mg) 07/02/23 01/06/24 Unknown Rx PO DAILY PRN anxiety 30 days #30 tabs ropinirole 0.25 mg tablet See Rx Instructions .Route 12/12/23 01/06/24 Unknown Rx .COMPLEX #30 tabs fluticasone 250 mcg-salmeterol 50 1 inh inhalation BID 30 days #60 ea 01/01/24 01/06/24 01/04/24 Rx mcg/dose blistr powdr for inhalation (Advair Diskus) furosemide 20 mg tablet (Lasix) 10 - 20 mg (0.5 - 1 x 20 mg) PO 01/01/24 01/06/24 Unknown Rx DAILY 30 days #30 tabs cholecalciferol (vitamin D3) 50 50 mcg PO DAILY 01/06/24 01/06/24 01/04/24 History mcg (2,000 unit) tablet (Vitamin D3) levalbuterol HCl 1.25 mg/3 mL 1.25 mg inhalation BID 01/06/24 01/06/24 01/04/24 History solution for nebulization multivitamin 1 tab PO QAM 01/06/24 01/06/24 01/04/24 History Allergies Allergy/AdvReac Type Severity Reaction Status Date / Time prednisone Allergy ADR-Confusi Verified 01/04/24 13:41 on Current Medications Generic Name Dose Route Start Last Admin Trade Name Freq PRN Reason Stop Dose Admin Budesonide 0.5 mg 01/04/24 20:02 01/13/24 19:52 Budesonide 0.5 Mg/2 Ml Neb INHALATION 0.5 mg BID.RESPIRATORY GRACIELA Administration Diltiazem HCl 60 mg 01/07/24 06:30 01/14/24 01:07 Diltiazem 60 Mg Tablet PO 60 mg Q6H GRACIELA Administration Enoxaparin Sodium 40 mg 01/11/24 09:15 01/13/24 08:31 Enoxaparin 40 Mg/0.4 Ml Syringe SUBCUT 40 mg Q24H GRACIELA Administration Furosemide 20 mg 01/10/24 08:00 01/13/24 08:02 Furosemide 20 Mg Tablet PO 20 mg DAILY@0800 GRACIELA Administration Guaifenesin 600 mg 01/07/24 18:00 01/13/24 18:23 Guaifenesin 600 Mg Tablet PO 600 mg BID GRACIELA Administration Vancomycin HCl 750 mg/ Sodium 250 mls @ 250 mls/hr 01/12/24 23:00 01/13/24 23:24 Chloride IV Infused Q24H GRACIELA Infusion Cefepime HCl 1,000 mg/ Sodium 50 mls @ 200 mls/hr 01/14/24 01:15 01/14/24 01:24 Chloride IV Infused Q12H GRACIELA Infusion Protocol Ipratropium Hazel 0.5 mg 01/05/24 14:00 01/14/24 02:29 Ipratropium 0.5 Mg/2.5 Ml Neb INHALATION 0.5 mg Q6H.RESP GRACIELA Administration Lanolin 1 applic 01/05/24 16:14 01/05/24 16:29 Lanolin Oint 7 Gm TOPICAL 1 applic PRN PRN Administration DRYNESS Levalbuterol HCl 0.63 mg 01/05/24 14:00 01/14/24 02:29 Levalbuterol 0.63 Mg/3 Ml Neb INHALATION 0.63 mg Q6H.RESP GRACIELA Administration Nystatin 100,000 unit 01/11/24 13:00 01/13/24 20:27 Nystatin 100,000 Unit/Ml Udc 5 Ml PO Not Given QID GRACIELA Pantoprazole Sodium 40 mg 01/05/24 09:00 01/13/24 08:[address] 40 Mg Tablet PO 40 mg DAILY GRACIELA Administration Ropinirole HCl 0 mg 01/05/24 09:00 01/09/24 12:51 Ropinirole 0.25 Mg Tablet PO 0.5 mg DAILY PRN Administration restless legs PFSH Acute 2 PFSH: Medical History Posterior left knee pain Primary osteoarthritis of left knee Hypertension Social History Smoking and tobacco/nicotine status: current every day tobacco/nicotine user smokeless tobacco Smokeless tobacco user: snuff Alcohol intake: never Substance/Drug Use: never Adopted: No Caregiver/support person: No Lives independently: Yes Marital status: / Do you think of yourself as: Straight/Heterosexual Current gender identity: Female Vitals/I&O/Wt Last Vital Signs Temp 97.6 F 01/14/24 04:00 Pulse 87 01/14/24 04:00 Resp 20 H 01/14/24 04:00 BP 109/68 01/14/24 04:00 Pulse Ox 93 01/14/24 04:00 O2 Del Method Nasal Cannula 01/14/24 02:33 O2 Flow Rate 5 01/14/24 02:33 FiO2 45 01/12/24 20:34 01/13/24 01/13/24 01/14/24 14:59 22:59 06:59 Intake Total 340 / 340 150 / 490 300 / 790 Balance 340 / 340 150 / 490 300 / 790 Weight last 48 hrs Weight 77.746 kg Weight 77.746 kg Weight 79.515 kg Physical Exam 2 Narrative: General: elderly ill appearing woman in bed HEENT: PERRLA, pupils bilaterally equal and reactive, pallors not present Chest: crackles B/L CVS: S1-S2 regular, no murmurs, no tachycardia, no gallops, no rubs Abdomen: Soft, nontender, no organomegaly, bowel sounds present Neuro: No focal deficits Data 01/14/24 03:40 01/10/24 10:00 Micro: Microbiology NAME: Nadia Staley LOC: [facility] #: [id number] AGE/SX: 88/F ROOM: 264 R E01/04/[address]: Maxine Hanson MD : 1935 BED: 1 D IS: FAX #: STATUS: ADM IN TLOC: Spec #: [id number] Bakari: 01/04/24 Status: COMP Req #: [id number] Recd: 01/04/[address]: Thang Lin MD Src: Blood SpDesc: Ordered: Bcult Procedure Result Verified Site Blood Culture Final 01/09/24-1545 NO GROWTH AFTER 5 DAYS Blood Culture Preliminary (changed) 01/05/24-1545 NEGATIVE TO DATE Blood Culture Preliminary (changed) 01/04/24-1551 SPECIMEN COLLECTED NAME: Nadia Staley LOC: [facility] U #: [id number] AGE/SX: 88/F ROOM: 264 R E01/04/[address]: Maxine Hanson MD : 1935 BED: 1 D IS: FAX #: STATUS: ADM IN TLOC: Spec #: [id number] Bakari: 01/04/24 Status: COMP Req #: [id number] Recd: 01/04/[address]: Thang Lin MD Src: Urine CC SpDesc: Ordered: UC Procedure Result Verified Site Urine Culture Final 01/06/24-1139 Organism 1 Staphylococcus epidermidis Mandan Count >100,000 CFU/ml <5,000 COLS/ML Mixed urogenital mauri on day 2 S epidermi M.I.C. RX --------- ------ * Amoxicillin/Clavulanate <=4/2 S * Ampicillin <=2 R * Ampicillin/Sulbactam <=8/4 S * Ceftriaxone <=8 S * Ciprofloxacin >2 R * Gentamicin <=4 S * Levofloxacin >4 R * Linezolid 2 S * Nitrofurantoin <=32 S * Oxacillin <=0.25 S * Penicillin 8 R * Rifampin <=1 S * Tetracycline <=4 S * Trimethoprim/Sulfamethoxazole 2/38 S Vancomycin 2 S Daptomycin <=0.5 S NAME: Nadia Staley LOC: [facility] #: [id number] AGE/SX: 88/F ROOM: [facility] R E01/04/[address]: Maxine Hanson MD : 1935 BED: 1 D IS: FAX #: STATUS: ADM IN TLOC: Spec #: [id number] Bakari: 01/06/24 Status: COMP Req #: [id number] Recd: 01/06/24-[address]: Ashlie Holbrook MD Src: URINE,VOID SpDesc: Ordered: Bacterial AG Procedure Result Verified Site Bacterial Antigen Final 01/06/24-1032 Streptococcus Group B Negative for Streptococcus Group B Antigen Haemophilus influenzae B Negative or Haemophilus influenzae B Antigen S. pneumoniae Antigen Negative for S. pneumoniae Antigen N.meningitidis A,C,Y,W135 Negative for N.meningitidis A,C,Y,W135 Antigen N.meningitidis B/E.coli Negative for N.meningitidis B/E.coli K1 Antigen Other data: Date of Service: 01/12/24 Procedure(s): XR chest 1V portable [id number] XR/XR chest 1V portable [id number] IMPRESSION: Stable left mid to lower lung infiltrate. Date of Service: 01/09/24 Procedure(s): XR chest 1V portable [id number] XR/XR chest 1V portable [id number] IMPRESSION: Improvement in the right lower lung with the left lung demonstrating somewhat increased lung opacities. Date of Service: 01/07/24 Procedure(s): XR chest 1V portable [id number] XR/XR chest 1V portable [id number] IMPRESSION: Interval development of diffuse interstitial reticular lung opacities. Most likely explanation is pulmonary edema. Date of Service: 01/04/24 Procedure(s): XR chest 1V portable [id number] XR/XR chest 1V portable [id number] IMPRESSION: 1. Increased opacity at the right lung base. Infectious process cannot be ruled out. 2. Emphysematous lung changes. 3. 0.7 centimeters right mid lung opacity. Date of Service: 01/04/24 Procedure(s): [place] [id number] [place] [id number] IMPRESSION: 1. No evidence of deep vein thrombosis. 2. 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 A&P Assessment and plan (1) Pneumonia: Qualifiers: Pneumonia type: due to unspecified organism Laterality: left Lung location: unspecified part of lung Qualified Code(s): J18.9 - Pneumonia, unspecified organism (2) Leukocytosis: Plan 88-year-old lady admitted to community-acquired pneumonia, treated with broad- spectrum antibiotics, transiently showed improvement, however since then has developed recurrent leukocytosis as noted above in HPI. Additionally per personal review of x-ray images, she has had a worsening left lower lobe consolidation on serial imaging. Recommend to obtain CT of the chest. This will assess for consolidation/possibility of developing effusion and also evaluate for alternate explanation such as PE with underlying infarction. Currently patient is on cefepime and vancomycin. Changed to piperacillin/tazobactam and vancomycin for added anaerobic coverage at this time. Check blood cultures, previously negative from admission on January 03 Check respiratory viral panel to assess for viral causes of worsening. Check urine Legionella antigen. No noted diarrhea or other abdominal symptoms, monitor closely for development of any diarrhea which could point towards C. difficile as a possibility. Will follow Consult Attestations 2 Medical Necessity Statement: per admitting attending note Coding Level of Care Code Acute Code for Chg Fwd High MDM includes number and complexity of problems actively addressed during encounter, amount and/or complexity of data reviewed/ordered and described risk of complication, morbidity or mortality of management as documented Diagnoses Pneumonia of left lung due to infectious organism, unspecified part of lung J18.9 Pneumonia type: due to unspecified organism Laterality: left Lung location: unspecified part of lung Leukocytosis D72.829
[2024-01-14] MEDS: piperacillin-tazobactam 3.375 GM in sodium chloride 0.9% (plus) 50 ML IV ×3 (06:14→21:59)
[2024-01-14 06:53] LABS: Alanine Aminotransferase 15 U/L (0-33); Albumin Level 2.6 g/dL (3.5-5.2); Alkaline Phosphatase 76 U/L (35-105); Anion Gap 16.1 (5-19); Aspartate Amino Transferase 16 U/L (0-32); Blood Urea Nitrogen 13 mg/dL (8-23); Calcium 8.7 mg/dL (8.5-10.5); Carbon Dioxide 30 mmol/L (22-29); Chloride 95 mmol/L (98-107); Creatinine Clr Calc Pharmacy 46.0281; Globulin 3.8 g/dL (1.3-4.6); Glucose 134 mg/dL (65-115); Osmolality Calculated 286 mOsm/kg (285-295); Potassium 4.1 mmol/L (3.5-5.1); Sodium 137 mmol/L (136-145); Total Bilirubin 0.3 mg/dL (0.15-1.2); Total Protein 6.4 g/dL (6.6-8.7)
--- NOTE | 2024-01-14 07:24 | CT_ITS ---
WS: [id number] CTA OF THE CHEST WITH PULMONARY EMBOLISM PROTOCOL TECHNIQUE: High-resolution contrast enhanced CTA of the chest with coronal and sagittal reformatted i mages with pulmonary embolism protocol. MIP images are also reviewed. CLINICAL INFORMATION: worsening LLL consolidation on serial CXR COMPARISON: None. DLP: 415.[address] scans at [facility] use at least one of these dose optimization techniques: automated e xposure control; mA and/or kV adjustment per patient size (includes targeted exams where dose is matc hed to clinical indication); or iterative reconstruction. FINDINGS: Proximal main pulmonary arteries are normal. Normal segmental and subsegmental pulmonary arteries. No evidence of pulmonary embolus. Advanced chronic paraseptal emphysematous changes. Subtotal consolidation LEFT lower lobe with air br onchograms. Trace pleural fluid. Diffuse interstitial thickening throughout the LEFT lung compatible with edema. Fluid along the LEFT fissure. Patchy infiltrates RIGHT lower lobe with trace fluid. Subpl eural opacity RIGHT upper lobe measuring 2.1 cm. Recommend interval follow-up after treatment. Thoracic aorta. Aortic calcification. Large anterior mediastinal and parabronchial lymph nodes likely reactive. Enlarged subcarinal lymph nodes. No axillary lymphadenopathy. Moderate thoracic kyphosis. Thickening of the LEFT adrenal gland. RIGHT adrenal gland is normal. Small esophageal hiatal hernia. CT/CT angio chest PE protcl [id number] IMPRESSION: 1. No evidence of pulmonary embolus. 2. Advanced chronic emphysematous changes with a small LEFT pleural effusion. Subtotal consolidation LEFT lower lobe with diffuse interstitial edema througho ut the LEFT lung worse in the LEFT lower lobe. 3. Slight patchy infiltrates RIGHT lower lobe. 4. Subpleural opacity RIGHT upper lobe measuring 2.1 cm. Recommend follow-up a fter treatment.
[2024-01-14] MEDS: nystatin 100,000 unit/mL UDC 5 mL 100000 UNIT PO ×3 (08:29→17:00)
[2024-01-14] MEDS: guaiFENesin 600 mg Tablet PO ×2 (08:29→17:00)
[2024-01-14] MEDS: enoxaparin 40 mg/0.4 mL Syringe SUBCUT (08:29)
[2024-01-14] MEDS: pantoprazole DR 40 mg Tablet PO (08:30)
[2024-01-14] MEDS: FUROsemide 20 mg Tablet PO (08:30)
[2024-01-14] MEDS: iohexol 350 mg/mL 500 mL Btl (per mL) IV (11:07)
--- NOTE | 2024-01-14 12:28 | PM.PN ---
Subjective Subjective: No overnight events noted. She has intermittent hypoxia and has been on intermittent BiPAP. Spoke to at bedside about the medical condition and plan of care for her. She denies any new complaint of cough or shortness of breath, feels well. Vitals/I&O/Wt Last Vital Signs Temp 97.5 F L 01/14/24 11:51 Pulse 107 H 01/14/24 11:51 Resp 17 01/14/24 11:51 BP 121/53 01/14/24 11:51 Pulse Ox 90 01/14/24 11:51 O2 Del Method Nasal Cannula 01/14/24 11:51 O2 Flow Rate 6 01/14/24 11:51 FiO2 45 01/12/24 20:34 01/13/24 01/14/24 01/14/24 22:59 06:59 14:59 Intake Total 150 / 490 300 / 790 530 / 530 Output Total 900 / 900 Balance 150 / 490 300 / 790 -370 / -370 Weight last 48 hrs Weight 77.746 kg Weight 77.746 kg Weight 79.515 kg Physical Exam Narrative: She is awake and alert, oriented x 3 Chest air entry equal on both sides, no rhonchi or wheezing present Cardiovascular normal heart sounds no murmurs Abdomen soft nontender nondistended normal bowel sounds Extremities bilateral 1+ pitting edema present Data 01/14/24 03:40 01/14/24 03:20 Micro: Microbiology 01/14/24 03:40 Blood Culture - Preliminary Blood SPECIMEN COLLECTED 01/14/24 03:40 Blood Culture - Preliminary Blood SPECIMEN COLLECTED A&P Assessment and plan (1) Community acquired pneumonia: Qualifiers: Laterality: right Lung location: lower lobe of lung Qualified Code(s): J18.9 - Pneumonia, unspecified organism (2) Swelling of lower extremity: (3) COPD (chronic obstructive pulmonary disease): Qualifiers: COPD type: emphysema Emphysema type: other Qualified Code(s): J43.8 - Other emphysema (4) Chronic respiratory failure with hypoxia, on home O2 therapy: (5) Acute CHF (congestive heart failure): (6) UTI (urinary tract infection): Plan 88-year-old female currently being treated for community-acquired pneumonia and COPD exacerbation, became confused and delirious likely secondary to fluid overload. Altered mental status resolved with IV diuresis for congestive heart failure She is on supplemental oxygen from 5 to 6 L/min saturating 91% with intermittent BiPAP if saturation dropped more than 88%. Had worsening leukocytosis hence changed antibiotics to broad-spectrum with vancomycin and cefepime for left lower lobe worsening pneumonia and staph epidermidis UTI, currently afebrile. ID consult today since she had worsening leukocytosis earlier for left lower lobe pneumonia which resolved and again had reappearance of pneumonia and leukocytosis. As per ID she was switched to IV vancomycin and Zosyn. CTA showed- IMPRESSION: 1. No evidence of pulmonary embolus. 2. Advanced chronic emphysematous changes with a small LEFT pleural effusion. Subtotal consolidation LEFT lower lobe with diffuse interstitial edema throughout the LEFT lung worse in the LEFT lower lobe. 3. Slight patchy infiltrates RIGHT lower lobe. 4. Subpleural opacity RIGHT upper lobe measuring 2.1 cm. Recommend follow-up after treatment. Leukocytosis count is 14.2 down from 15.8 Blood cultures negative, urine culture positive for Staphylococcus epidermidis likely contaminant as per ID. 2D echo done this admission showed LVEF 60 to 65%, grade 1 diastolic dysfunction. Lasix changed to 20 mg p.o. daily DuoNebs every 6 hours. DVT prophylaxis with Lovenox PUD prophylaxis with Protonix 40 mg daily. She is DNR/DNI. Family, daughter updated and counseled about the medical condition and plan of care. Attestations Medical Necessity Statement*: She needs continued hospitalization for IV antibiotics for worsening pneumonia and UTI, respiratory support with supplemental oxygen and BiPAP intermittently. Time Spent in Patient Care: 15 minutes Coding Level of Care Code Acute Code for [facility] Diagnoses Community acquired pneumonia J18.9 Laterality: right Lung location: lower lobe of lung Swelling of lower extremity M79.89 Other emphysema J43.8 COPD type: emphysema Emphysema type: other Chronic respiratory failure with hypoxia, on home O2 therapy J96.11; Z99.81 Acute CHF (congestive heart failure) I50.9 UTI (urinary tract infection) N39.0 Time Spent (min) 15
[2024-01-14 22:35] LABS: Vancomycin Trough 5.8 ug/mL (10-15)
[2024-01-15] VITALS (19 sets, daily range): BP systolic 95–124; BP diastolic 59–70; PULSE 64–104; RESP 17–29; TEMP 36.4–37.8; O2SAT 89–95
[2024-01-15] MEDS: vancomycin 1,000 MG in sodium chloride 0.9% 250 ML 250 MG IV (00:19)
[2024-01-15] MEDS: levalbuterol 0.63 mg/3 mL Neb 0.630000000000000004 MG INHALATION ×4 (02:46→20:07)
[2024-01-15] MEDS: ipratropium 0.5 mg/2.5 mL Neb INHALATION ×4 (02:46→20:07)
[2024-01-15] MEDS: piperacillin-tazobactam 3.375 GM in sodium chloride 0.9% (plus) 50 ML IV ×3 (05:41→22:06)
[2024-01-15] MEDS: dilTIAZem 60 mg Tablet PO ×3 (05:47→17:08)
[2024-01-15] MEDS: guaiFENesin 600 mg Tablet PO ×2 (08:53→17:08)
[2024-01-15] MEDS: FUROsemide 20 mg Tablet PO (08:53)
[2024-01-15] MEDS: nystatin 100,000 unit/mL UDC 5 mL 100000 UNIT PO ×3 (08:53→17:08)
[2024-01-15] MEDS: pantoprazole DR 40 mg Tablet PO (08:53)
[2024-01-15] MEDS: enoxaparin 40 mg/0.4 mL Syringe SUBCUT (08:54)
--- NOTE | 2024-01-15 11:37 | PC.SOCIAL ---
IMM Updated Updated pt on IMM. No questions voiced. Provided pt a copy. Initialed, dated, & timed copy in chart.
--- NOTE | 2024-01-15 13:45 | P.PN_ITS ---
Subjective 2 Subjective: No acute overnight events noted. Was seen at bedside this morning, she is getting anxious about her stay in the hospital. Explained to her that her pneumonia is severe and she needs few more days of IV antibiotics. Seems to understand but still anxious. Vitals/I&O/Wt Last Vital Signs Temp 97.9 F 01/15/24 11:07 Pulse 100 01/15/24 13:30 Resp 28 H 01/15/24 13:18 BP 111/62 01/15/24 11:07 Pulse Ox 94 01/15/24 13:20 O2 Del Method BiPAP 01/15/24 13:18 O2 Flow Rate 5 01/15/24 08:14 FiO2 45 01/15/24 13:20 01/14/24 01/15/24 01/15/24 22:59 06:59 14:59 Intake Total 290 / 820 300 / 1120 530 / 530 Output Total 150 / 1050 Balance 140 / -230 300 / 70 530 / 530 Weight last 48 hrs Weight 78.585 kg Weight 77.746 kg Weight 77.746 kg Physical Exam 2 Narrative: She is awake and alert, oriented x 3 Chest air entry equal on both sides, decreased breath sounds from mid to lower zone bilaterally with associated rhonchi and occasional wheezing Cardiovascular normal heart sounds no murmurs Abdomen soft nontender nondistended normal bowel sounds Extremities bilateral 1+ pitting edema present Data 01/14/24 03:40 01/14/24 03:20 Micro: Microbiology 01/14/24 03:40 Blood Culture - Preliminary Blood NEGATIVE TO DATE 01/14/24 03:40 Blood Culture - Preliminary Blood NEGATIVE TO DATE A&P Assessment and plan (1) Community acquired pneumonia: Qualifiers: Laterality: right Lung location: lower lobe of lung Qualified Code(s): J18.9 - Pneumonia, unspecified organism (2) Swelling of lower extremity: (3) COPD (chronic obstructive pulmonary disease): Qualifiers: COPD type: emphysema Emphysema type: other Qualified Code(s): J43.8 - Other emphysema (4) Chronic respiratory failure with hypoxia, on home O2 therapy: (5) Acute CHF (congestive heart failure): (6) UTI (urinary tract infection): Plan 88-year-old female currently being treated for community-acquired pneumonia and COPD exacerbation, became confused and delirious likely secondary to fluid overload. Altered mental status resolved with IV diuresis for congestive heart failure She is on supplemental oxygen from 5 to 6 L/min saturating 91% with intermittent BiPAP if saturation dropped more than 88%. She currently had worsening leukocytosis hence changed antibiotics to broad- spectrum with vancomycin and cefepime for left lower lobe worsening pneumonia and staph epidermidis UTI, currently afebrile. ID consult today since she had worsening leukocytosis earlier for left lower lobe pneumonia which resolved and again had reappearance of worsening pneumonia and leukocytosis. As per ID she was switched to IV vancomycin and Zosyn. CTA showed- IMPRESSION: 1. No evidence of pulmonary embolus. 2. Advanced chronic emphysematous changes with a small LEFT pleural effusion. Subtotal consolidation LEFT lower lobe with diffuse interstitial edema throughout the LEFT lung worse in the LEFT lower lobe. 3. Slight patchy infiltrates RIGHT lower lobe. 4. Subpleural opacity RIGHT upper lobe measuring 2.1 cm. Recommend follow-up after treatment. Leukocytosis count is 14.2 down from 15.8 Blood cultures negative, urine culture positive for Staphylococcus epidermidis likely contaminant as per ID. 2D echo done this admission showed LVEF 60 to 65%, grade 1 diastolic dysfunction. Lasix changed to 20 mg p.o. daily DuoNebs every 6 hours. DVT prophylaxis with Lovenox PUD prophylaxis with Protonix 40 mg daily. She is DNR/DNI. Family, daughter updated and counseled about the medical condition and plan of care. Attestations 2 Medical Necessity Statement*: She needs continued hospitalization for IV antibiotics for worsening pneumonia and UTI, respiratory support with supplemental oxygen and BiPAP intermittently. Time Spent in Patient Care: 20 minutes Coding Level of Care Code Acute Code for [facility] Diagnoses Community acquired pneumonia J18.9 Laterality: right Lung location: lower lobe of lung Swelling of lower extremity M79.89 Other emphysema J43.8 COPD type: emphysema Emphysema type: other Chronic respiratory failure with hypoxia, on home O2 therapy J96.11; Z99.81 Acute CHF (congestive heart failure) I50.9 UTI (urinary tract infection) N39.0 Time Spent (min) 20
[2024-01-16] VITALS (16 sets, daily range): BP systolic 97–127; BP diastolic 55–80; PULSE 93–118; RESP 18–22; TEMP 36.1–36.6; O2SAT 89–97; BMI 31.6
[2024-01-16] MEDS: vancomycin 1,000 MG in sodium chloride 0.9% 250 ML 250 MG IV (01:05)
[2024-01-16] MEDS: LORazepam 0.5 mg Tablet PO (02:03)
[2024-01-16] MEDS: dilTIAZem 60 mg Tablet PO ×4 (02:03→20:06)
[2024-01-16] MEDS: levalbuterol 0.63 mg/3 mL Neb 0.630000000000000004 MG INHALATION ×4 (04:39→19:58)
[2024-01-16] MEDS: ipratropium 0.5 mg/2.5 mL Neb INHALATION ×4 (04:39→19:58)
[2024-01-16] MEDS: piperacillin-tazobactam 3.375 GM in sodium chloride 0.9% (plus) 50 ML IV (05:52)
[2024-01-16 06:06] LABS: Basophils # 0.1 10^3/uL (0.0-0.1); Basophils % 0.3 %; Eosinophils # 0.2 10^3/uL (0.0-0.8); Eosinophils % 1.4 %; Hematocrit 30.5 % (36-47); Lymphocytes # 1.2 10^3/uL (0.8-4.8); Lymphocytes % 8.2 %; Mean Corpuscular HGB Conc 28.9 g/dL (30-55); Mean Corpuscular Hemoglobin 26.8 pg (27-33); Mean Platelet Volume 9.9 fL (7.4-10.4); Monocytes # 1.4 10^3/uL (0.2-0.9); Monocytes % 9.6 %; Neutrophils # 11.53 10^3/uL (1.8-7.7); Neutrophils % 79.1 %; Nucleated Red Blood Cells % 0 %; Platelet Count 399 10^3/cmm (157-399); Red Blood Count 3.28 10^6/uL (3.85-5.65); Red Cell Distribution Width 15.3 % (12.1-15.1); White Blood Count 14.57 10^3/uL (3.29-11.43)
[2024-01-16 06:26] LABS: Alanine Aminotransferase 17 U/L (0-33); Albumin Level 2.5 g/dL (3.5-5.2); Alkaline Phosphatase 77 U/L (35-105); Blood Urea Nitrogen 16 mg/dL (8-23); Calcium 8.8 mg/dL (8.5-10.5); Carbon Dioxide 32 mmol/L (22-29); Chloride 94 mmol/L (98-107); Creatinine Clr Calc Pharmacy 41.1383; Globulin 3.9 g/dL (1.3-4.6); Glucose 116 mg/dL (65-115); Osmolality Calculated 282 mOsm/kg (285-295); Sodium 135 mmol/L (136-145); Total Bilirubin 0.3 mg/dL (0.15-1.2); Total Protein 6.4 g/dL (6.6-8.7)
--- NOTE | 2024-01-16 06:28 | PM.PN ---
Subjective Subjective: Infectious disease progress note. WBC at 14.57. Tmax 100.[address] of the chest performed 2 days ago shows large left lower lobe consolidation with a small left pleural effusion. Diffuse interstitial edema throughout the left lung. Continues on 5 L/min supplemental O2. Denies any abdominal symptoms Medications: Reviewed: Yes Vitals/I&O/Wt Last Vital Signs Temp 97.0 F L 01/16/24 04:00 Pulse 95 01/16/24 06:24 Resp 22 H 01/16/24 04:00 BP 97/61 01/16/24 04:00 Pulse Ox 93 01/16/24 04:00 O2 Del Method Nasal Cannula 01/16/24 04:00 O2 Flow Rate 5 01/16/24 04:00 FiO2 45 01/15/24 20:00 01/15/24 01/15/24 01/16/24 14:59 22:59 06:59 Intake Total 530 / 530 350 / 880 400 / 1280 Balance 530 / 530 350 / 880 400 / 1280 Weight last 48 hrs Weight 78.585 kg Weight 78.585 kg Physical Exam Narrative: General: No acute distress, AO x3 HEENT: PERRLA, pupils bilaterally equal and reactive, pallors not present Chest: Normal vesicular breath sounds, no added sounds, equal good air entry bilaterally CVS: S1-S2 regular, no murmurs, no tachycardia, no gallops, no rubs Abdomen: Soft, nontender, no organomegaly, bowel sounds present Neuro: No focal deficits, no facial deformity, AO x3, power 5/5 in all limbs Data 01/16/24 05:17 01/16/24 05:17 Other Labs: NAME: Nadia Staley LOC: [facility] #: [id number] AGE/SX: 88/F ROOM: 264 RE01/04/[address]: Maxine Hanson MD : 1935 BED: 1 DIS: FAX #: STATUS: ADM IN TLOC: Spec #: [id number] Bakari: 01/14/24 Status: RES Req #: [id number] Recd: 01/14/[address]: Ashlie Holbrook MD Src: Sputum SpDesc: Expec Sput Ordered: SPU Cult & GS Procedure Result Verified Site Gram Stain Final 01/15/24 Result NO ORGANISMS SEEN NO WHITE BLOOD CELLS Sputum Culture Preliminary 01/15/24 FEW MIXED UPPER RESPIRATORY ZENA ON DAY 1 NAME: Nadia Staley LOC: [facility] #: [id number] AGE/SX: 88/F ROOM: 264 RE01/04/[address]: Maxine Hanson MD : 1935 BED: 1 DIS: FAX #: STATUS: ADM IN TLOC: Spec #: [id number] Bakari: 01/14/24 Status: RES Req #: [id number] Recd: 01/14/[address]: Ashlie Holbrook MD Src: Blood SpDesc: Ordered: Bcult Procedure Result Verified Site Blood Culture Preliminary 01/15/24 NEGATIVE TO DATE Blood Culture Preliminary (changed) 01/14/24 SPECIMEN COLLECTED NAME: Nadia Staley LOC: [facility] #: [id number] AGE/SX: 88/F ROOM: [facility] RE01/04/[address]: Maxine Hanson MD : 1935 BED: 1 DIS: FAX #: STATUS: ADM IN TLOC: Spec #: [id number] Bakari: 01/15/24 Status: COMP Req #: [id number] Recd: 01/15/[address]: Ashlie Holbrook MD Src: URINE,VOID SpDesc: Ordered: Legionella AG Procedure Result Verified Site Legionella Antigen STAT Final 01/15/24 Legion Patient Result Presumptive Negative for L. pneumophila Micro: Microbiology 01/15/24 20:30 Legionella Urinary Antigen - Final Urine,Voided 01/14/24 08:36 Gram Stain - Final Sputum - Expectorated Sputum Sputum Culture - Preliminary 01/14/24 03:40 Blood Culture - Preliminary Blood NEGATIVE TO DATE 01/14/24 03:40 Blood Culture - Preliminary Blood NEGATIVE TO DATE A&P Assessment and plan (1) Pneumonia: Qualifiers: Pneumonia type: due to unspecified organism Laterality: left Lung location: unspecified part of lung Qualified Code(s): J18.9 - Pneumonia, unspecified organism (2) Leukocytosis: Plan 88-year-old lady admitted due to community-acquired pneumonia, treated with broad-spectrum antibiotics, transiently showed improvement, however since then has developed recurrent persistent leukocytosis and continues to have intermittent low grade fever. Additionally per personal review of x-ray images, she has had a worsening left lower lobe consolidation on serial imaging.Ct chest obtained on January 14, 2024 shows large left lower lobe consolidation with surrounding inflammatory changes, small pleural effusion. No drainable collection. No empyema. Study negative for PE. Change antibiotic coverage to meropenem and linezolid. Previously Mccollum trough from January 14, 2024 at 5. Awaiting respiratory and blood cultures., Thus far without growth. Negative respiratory viral panel Negative Legionella antigen, has received azithromycin and levofloxacin earlier during course of admission. No noted diarrhea or other abdominal symptoms, monitor closely for development of any diarrhea which could point towards C. difficile as a possibility. Lower possibility of fungal etiology given patient is not otherwise immunocompromised. However given lack of improvement will obtain peripheral workup with serum Fungitell, serum Aspergillus galactomannan antigen, urine histoplasma antigen, Coccidioides serology. Low probability of MTB given all symptoms are of acute onset, serial worsening on x-rays noted during course of admission which would be unusual for pulmonary tuberculosis. Will follow Attestations Medical Necessity Statement*: Persisting leukocytosis, intermittent fever, per attending note Coding Level of Care Code Acute Code for [facility] Diagnoses Pneumonia of left lung due to infectious organism, unspecified part of lung J18.9 Pneumonia type: due to unspecified organism Laterality: left Lung location: unspecified part of lung Leukocytosis D72.829
[2024-01-16 06:29] LABS: Anion Gap 13.5 (5-19); Aspartate Amino Transferase 30 U/L (0-32); Potassium 4.5 mmol/L (3.5-5.1)
[2024-01-16] MEDS: linezolid 600 mg Tablet PO ×2 (06:38→17:26)
[2024-01-16] MEDS: meropenem 1,000 MG in sodium chloride 0.9% (plus) 50 ML 100 MG IV ×2 (06:45→17:27)
[2024-01-16] MEDS: pantoprazole DR 40 mg Tablet PO (09:17)
[2024-01-16] MEDS: nystatin 100,000 unit/mL UDC 5 mL 100000 UNIT PO ×4 (09:17→20:05)
[2024-01-16] MEDS: enoxaparin 40 mg/0.4 mL Syringe SUBCUT (09:18)
[2024-01-16] MEDS: guaiFENesin 600 mg Tablet PO ×2 (09:18→17:26)
[2024-01-16] MEDS: FUROsemide 20 mg Tablet PO (09:18)
[2024-01-16 12:14] LABS: NT Pro B Type Natriuretic Pept 2953 pg/mL (0-450)
--- NOTE | 2024-01-16 13:57 | P.PN_ITS ---
Subjective 2 Subjective: - Patient was examined multiple times th roughout the morning ? Early in the morning she was seen, sitting up to side of bed O2 sats mid to high 80s, she is alert oriented x 2, following all commands breathing through pursed lips, she tells me that she does not feel better this morning, continues to feel short of breath, she does feel a little bit better compared to yesterday but does complain of fatigue malaise shortness of breath right now she is tapping her left foot against the ground as she tells me it is going numb, -Patient was examined multiple times in the morning, she is in moderate respiratory distress intercostal retractions, suprasternal retractions, nasal flaring, breathing through pursed lips, tachypneic, tachycardic, initially requiring 6 L then transition to BiPAP, then off BiPAP to 6 L, does report shortness of breath ? I did discuss her overall goals of care, she is DNR/DNI however she was not really able to give me a clear answer if she wanted us to continue medical interventions versus hospice, she tells me she wants to wait for her daughter, but wants to stay here in the hospital ? I had a family meeting with patient's daughter, patient's daughter tells me that her mom is suffering and she does not want her, her mom to suffer anymore, she above all does not want her mom to suffer, she wants us to ease her pain and suffering, and her anxiety, ? We had a detailed discussion about patient's hospitalization, she has underlying COPD, she has not been appropriately assessed for her COPD she has not seen a japanese interpreter, based upon the information I received from family, prior hospitals and her CAT scan findings she has moderate to severe COPD, ? Given her age, her COPD, and now her respiratory failure secondary to pneumonia, she is in moderate to severe respiratory failure, which carries significant morbidity and mortality, ? We discussed her overall goals of care, for now her daughter wants to continue medical interventions until the rest of the family arrives from out of state, specifically patient's other daughter from [place] will be here on Saturday, she wants patient and her daughter to meet before considering full comfort care/hospice ? We discussed continue medical intervention for now however if her condition does deteriorate, then family is agreeable to full comfort care ? I did discuss this with patient, continuing medical interventions, she is agreeable, we did discuss hospice, she tells me she just does not want to suffer, but it is up to her daughter she tells me ? I also had a meeting with patient's other daughter, and granddaughter at bedside, they are agreeable with plan - Vitals/I&O/Wt Last Vital Signs Temp 97.8 F 01/16/24 12:00 Pulse 117 H 01/16/24 12:00 Resp 19 H 01/16/24 12:00 BP 110/80 01/16/24 12:00 Pulse Ox 89 L 01/16/24 12:00 O2 Del Method Nasal Cannula 01/16/24 07:53 O2 Flow Rate 6 01/16/24 07:53 FiO2 45 01/15/24 20:00 01/15/24 01/16/24 01/16/24 22:59 06:59 14:59 Intake Total 350 / 880 414 / 1294 530 / 530 Balance 350 / 880 414 / 1294 530 / 530 Weight last 48 hrs Weight 78.585 kg Weight 78.585 kg Physical Exam 2 Const: COMMON NORMALS: no acute distress GENERAL APPEARANCE: ill appearing and frail appearing ORIENTATION/CONSCIOUSNESS: Yes awake, Yes oriented to person and Yes oriented to place; not oriented to time Resp: COMMON NORMALS: normal respiratory effort, No retractions and No use of accessory muscles AUSCULTATION: crackles and wheezes OTHER: Breathing through pursed lips, mild intercostal retractions, suprasternal retractions.moderrate respiratory distress Cardio: COMMON NORMALS: regular rhythm, S1 normal heart sound present and S2 normal heart sound present RATE: tachycardic RHYTHM: regular rhythm H EART SOUNDS: S1 normal heart sound present and S2 normal heart sound present GI: COMMON NORMALS: Normal to inspection, nondistended, normoactive bowel sounds present and non-tender Extremity: COMMON NORMALS: no pedal edema Neuro: SENSORIUM/ORIENTATION: Yes oriented to person, Yes oriented to place and No oriented to time Data 01/16/24 05:17 01/16/24 05:17 Micro: Microbiology 01/14/24 08:36 Gram Stain - Final Sputum - Expectorated Sputum Sputum Culture - Final 01/15/24 20:30 Legionella Urinary Antigen - Final Urine,Voided A&P Assessment and plan (1) Community acquired pneumonia: Qualifiers: Laterality: right Lung location: lower lobe of lung Qualified Code(s): J18.9 - Pneumonia, unspecified organism (2) Swelling of lower extremity: (3) COPD (chronic obstructive pulmonary disease): Qualifiers: COPD type: emphysema Emphysema type: other Qualified Code(s): J43.8 - Other emphysema (4) Chronic respiratory failure with hypoxia, on home O2 therapy: (5) Acute CHF (congestive heart failure): (6) UTI (urinary tract infection): (7) Physical deconditioning: (8) Acute respiratory failure with hypoxia and hypercapnia: (9) Goals of care, counseling/discussion: (10) Respiratory distress, acute: Plan 88-year-old female currently being treated for pneumonia and COPD exacerbation, CHF exacerbation Acute hypoxic hypercarbic respiratory failure ? Multifactorial from moderate to severe COPD ? CT scan shows advanced chronic paraseptal emphysematous changes ? Pneumonia CT angiogram Advanced chronic paraseptal emphysematous changes. Subtotal consolidation LEFT lower lobe with air bronchograms. Trace pleural fluid. Diffuse interstitial thickening throughout the LEFT lung compatible with edema. Fluid along the LEFT fissure. Patchy infiltrates RIGHT lower lobe with trace fluid. Subpleural opacity RIGHT upper lobe measuring 2.1 cm. Recommend interval follow-up after treatment. ? Fluid overload -With evidence of moderate respiratory failure nasal flaring, intercostal retractions, suprasternal retractions ? Plan ? Continue BiPAP as needed during the day for shortness of breath, scheduled during the night ? Continue broad-spectrum antibiotic therapy, side effects, meropenem ? Infectious disease consulted - 1 dose of IV Lasix today -Has declined steroids during her hospitalization due to concerns for adverse side effects -Monitor respiratory status closely ? Overall goals of care continue medical interventions for now, until family arrives on Saturday, if her condition deteriorates, patient and family agreement to proceed with full comfort care ? Morphine 1 mg every 4 hours as needed for pain, air hunger ? Ativan 0.5 mg every 6 as needed for anxiety ? Physical deconditioning, secondary to underlying COPD -Acute on chronic anemia, monitor Blood cultures negative, urine culture positive for Staphylococcus epidermidis likely contaminant as per ID. 2D echo done this admission showed LVEF 60 to 65%, grade 1 diastolic dysfunction. Lasix changed to 20 mg p.o. daily DuoNebs every 6 hours. DVT prophylaxis with Lovenox PUD prophylaxis with Protonix 40 mg daily. She is DNR/DNI. ? Status is critical, prognosis for Spoke to patient, spoke to patient's family Attestations 2 Medical Necessity Statement*: Patient requires hospitalization for respiratory failure, pneumonia, COPD, CHF Diagnoses Community acquired pneumonia J18.9 Laterality: right Lung location: lower lobe of lung Swelling of lower extremity M79.89 Other emphysema J43.8 COPD type: emphysema Emphysema type: other Chronic respiratory failure with hypoxia, on home O2 therapy J96.11; Z99.81 Acute CHF (congestive heart failure) I50.9 UTI (urinary tract infection) N39.0 Physical deconditioning R53.81 Acute respiratory failure with hypoxia and hypercapnia J96.01; J96.02 Goals of care, counseling/discussion Z71.89 Respiratory distress, acute R06.03
[2024-01-16] MEDS: FUROsemide 10 mg/mL SDV 4mL 40 MG IVP (16:00)
--- NOTE | 2024-01-16 21:28 | PC.NURSE ---
Patient was placed on Bipap. Approximately one hour later, patient asked that it be removed. RT notified.
--- NOTE | 2024-01-16 21:35 | PC.NURSE ---
Per report from day shift nurse, they have been unable to collect stool sample due to patient always having urine with the stool.
[2024-01-17] VITALS (13 sets, daily range): BP systolic 103–127; BP diastolic 61–73; PULSE 75–101; RESP 14–24; TEMP 36.6–37; O2SAT 83–95
[2024-01-17] MEDS: dilTIAZem 60 mg Tablet PO ×4 (01:44→20:09)
[2024-01-17] MEDS: levalbuterol 0.63 mg/3 mL Neb 0.630000000000000004 MG INHALATION ×4 (02:06→20:11)
[2024-01-17] MEDS: ipratropium 0.5 mg/2.5 mL Neb INHALATION ×4 (02:06→20:11)
[2024-01-17 05:44] LABS: Basophils % 0.3 %; Eosinophils # 0.2 10^3/uL (0.0-0.8); Eosinophils % 1.3 %; Hematocrit 27.2 % (36-47); Lymphocytes # 1.3 10^3/uL (0.8-4.8); Lymphocytes % 10.1 %; Mean Corpuscular HGB Conc 29.4 g/dL (30-55); Mean Corpuscular Hemoglobin 26.5 pg (27-33); Mean Corpuscular Volume 90.1 fl (85-98); Mean Platelet Volume 9.3 fL (7.4-10.4); Monocytes # 1.2 10^3/uL (0.2-0.9); Monocytes % 9.4 %; Neutrophils # 9.78 10^3/uL (1.8-7.7); Neutrophils % 77.6 %; Nucleated Red Blood Cells % 0 %; Platelet Count 424 10^3/cmm (157-399); Red Blood Count 3.02 10^6/uL (3.85-5.65); Red Cell Distribution Width 15.1 % (12.1-15.1); White Blood Count 12.62 10^3/uL (3.29-11.43)
[2024-01-17] MEDS: meropenem 1,000 MG in sodium chloride 0.9% (plus) 50 ML 100 MG IV ×2 (06:03→16:49)
[2024-01-17 06:11] LABS: Alanine Aminotransferase 17 U/L (0-33); Albumin Level 2.6 g/dL (3.5-5.2); Alkaline Phosphatase 74 U/L (35-105); Anion Gap 12.5 (5-19); Aspartate Amino Transferase 19 U/L (0-32); Blood Urea Nitrogen 17 mg/dL (8-23); Calcium 8.1 mg/dL (8.5-10.5); Carbon Dioxide 35 mmol/L (22-29); Chloride 94 mmol/L (98-107); Globulin 3.4 g/dL (1.3-4.6); Glucose 118 mg/dL (65-115); Osmolality Calculated 289 mOsm/kg (285-295); Potassium 3.5 mmol/L (3.5-5.1); Sodium 138 mmol/L (136-145); Total Bilirubin 0.2 mg/dL (0.15-1.2)
[2024-01-17 06:14] LABS: Creatinine Clr Calc Pharmacy 37.0245
[2024-01-17] MEDS: acetaminophen 325 mg Tablet 650 MG PO (07:09)
[2024-01-17] MEDS: guaiFENesin 600 mg Tablet PO ×2 (08:00→16:49)
[2024-01-17] MEDS: enoxaparin 40 mg/0.4 mL Syringe SUBCUT (08:00)
[2024-01-17] MEDS: pantoprazole DR 40 mg Tablet PO (08:00)
[2024-01-17] MEDS: nystatin 100,000 unit/mL UDC 5 mL 100000 UNIT PO ×4 (08:00→20:09)
[2024-01-17] MEDS: linezolid 600 mg Tablet PO ×2 (08:02→20:09)
[2024-01-17] MEDS: budesonide 0.5 mg/2 mL Neb INHALATION (08:14)
--- NOTE | 2024-01-17 08:39 | XRR_ITS ---
PROCEDURE INFORMATION: Exam: XR Chest Exam date and time: 01/17/2024 8:51 AM Age: 88 years old Clinical indication: Shortness of breath; Additional info: SOB TECHNIQUE: Imaging protocol: Radiologic exam of the chest. Views: 1 view. COMPARISON: CT angio chest PE protcl [id number] 01/14/2024 10:58 AM FINDINGS: Tubes, catheters and devices: PICC from the right arm with the tip in the distal SVC in satisfactory position. Lungs: There is extensive cavitary infiltrate throughout the lower 2/3 of the left lung. Minimal infiltrate involves the right lung base. Pleural spaces: Unremarkable. No pleural effusion. No pneumothorax. Heart/Mediastinum: Unremarkable. No cardiomegaly. Bones/joints: Unremarkable. XR/XR chest 1V portable [id number] IMPRESSION: Stable bilateral pneumonia
[2024-01-17 09:34] LABS: NT Pro B Type Natriuretic Pept 3260 pg/mL (0-450)
[2024-01-17] MEDS: ropinirole 0.25 mg Tablet PO (10:51)
--- NOTE | 2024-01-17 13:17 | PC.SOCIAL ---
IMM Updated Updated pt on IMM. No questions voiced. Provided pt a copy. Initialed, dated, & timed copy in chart.
--- NOTE | 2024-01-17 19:03 | P.PN_ITS ---
Subjective 2 Subjective: Patient was seen this morning, she is alert to person, to place, not to time she follows all commands, currently sitting up in a chair, on 6 L, according to nursing staff with minimal exertion, she does desat into the low 70s, currently her O2 sats are in the high 80s, saturating 88-89, she does report shortness of breath with minimal exertion, does feel short of breath after few sentences, but she tells me she feels significantly better compared to yesterday Vitals/I&O/Wt Last Vital Signs Temp 98.3 F 01/17/24 16:00 Pulse 91 01/17/24 16:00 Resp 14 01/17/24 16:00 BP 127/64 01/17/24 16:00 Pulse Ox 91 01/17/24 16:00 O2 Del Method Nasal Cannula 01/17/24 16:00 O2 Flow Rate 4 01/17/24 08:16 FiO2 45 01/15/24 20:00 01/17/24 01/17/24 01/17/24 06:59 14:59 22:59 Intake Total 290 / 1350 600 / 600 290 / 890 Output Total 500 / 500 Balance -210 / 850 600 / 600 290 / 890 Weight last 48 hrs Weight 78.426 kg Weight 78.585 kg Physical Exam 2 Const: COMMON NORMALS: no acute distress and patient oriented x3 Resp: COMMON NORMALS: normal respiratory effort, No retractions and No use of accessory muscles AUSCULTATION: crackles and wheezes Cardio: COMMON NORMALS: regular rate, regular rhythm, S1 normal heart sound present and S2 normal heart sound present RATE: regular rate RHYTHM: r egular rhythm HEART SOUNDS: S1 normal heart sound present and S2 normal heart sound present GI: COMMON NORMALS: Normal to inspection, nondistended, normoactive bowel sounds present and non-tender Extremity: COMMON NORMALS: no pedal edema Neuro: COMMON NORMALS: patient oriented x3 Psych: COMMON NORMALS: mental status grossly normal Data 01/17/24 05:32 01/17/24 05:32 A&P Assessment and plan (1) Community acquired pneumonia: Qualifiers: Laterality: right Lung location: lower lobe of lung Qualified Code(s): J18.9 - Pneumonia, unspecified organism (2) Swelling of lower extremity: (3) COPD (chronic obstructive pulmonary disease): Qualifiers: COPD type: emphysema Emphysema type: other Qualified Code(s): J43.8 - Other emphysema (4) Chronic respiratory failure with hypoxia, on home O2 therapy: (5) Acute CHF (congestive heart failure): (6) UTI (urinary tract infection): (7) Physical deconditioning: (8) Acute respiratory failure with hypoxia and hypercapnia: (9) Goals of care, counseling/discussion: (10) Respiratory distress, acute: Plan 88-year-old female currently being treated for pneumonia and COPD exacerbation, CHF exacerbation Acute hypoxic hypercarbic respiratory failure ? Multifactorial from moderate to severe COPD ? CT scan shows advanced chronic paraseptal emphysematous changes ? Pneumonia CT angiogram Advanced chronic paraseptal emphysematous changes. Subtotal consolidation LEFT lower lobe with air bronchograms. Trace pleural fluid. Diffuse interstitial thickening throughout the LEFT lung compatible with edema. Fluid along the LEFT fissure. Patchy infiltrates RIGHT lower lobe with trace fluid. Subpleural opacity RIGHT upper lobe measuring 2.1 cm. Recommend interval follow-up after treatment. ? Fluid overload -With evidence of moderate respiratory failure nasal flaring, intercostal retractions, suprasternal retractions ? Plan ? Continue BiPAP as needed during the day for shortness of breath, scheduled during the night ? Continue broad-spectrum antibiotic therapy, side effects, meropenem ? Infectious disease consulted - 1 dose of IV Lasix today -Has declined steroids during her hospitalization due to concerns for adverse side effects -Monitor respiratory status closely ? Overall goals of care continue medical interventions for now, until family arrives on Saturday, if her condition deteriorates, patient and family agreement to proceed with full comfort care ? Morphine 1 mg every 4 hours as needed for pain, air hunger ? Ativan 0.5 mg every 6 as needed for anxiety ? Physical deconditioning, secondary to underlying COPD -Acute on chronic anemia, monitor Blood cultures negative, urine culture positive for Staphylococcus epidermidis likely contaminant as per ID. 2D echo done this admission showed LVEF 60 to 65%, grade 1 diastolic dysfunction. Lasix changed to 20 mg p.o. daily DuoNebs every 6 hours. DVT prophylaxis with Lovenox PUD prophylaxis with Protonix 40 mg daily. She is DNR/DNI. ? Status is critical, prognosis for Spoke to patient, spoke to patient's family Plan for today, continue IV antibiotics, 1 dose of IV Lasix, monitor respiratory status closely Attestations 2 Medical Necessity Statement*: Patient requires hospitalization for acute hypoxic respiratory failure Diagnoses Community acquired pneumonia J18.9 Laterality: right Lung location: lower lobe of lung Swelling of lower extremity M79.89 Other emphysema J43.8 COPD type: emphysema Emphysema type: other Chronic respiratory failure with hypoxia, on home O2 therapy J96.11; Z99.81 Acute CHF (congestive heart failure) I50.9 UTI (urinary tract infection) N39.0 Physical deconditioning R53.81 Acute respiratory failure with hypoxia and hypercapnia J96.01; J96.02 Goals of care, counseling/discussion Z71.89 Respiratory distress, acute R06.03
--- NOTE | 2024-01-17 19:34 | PC.NURSE ---
Per report from day shift RN (Fariba), physician (Dr. Flanagan) stated that patient does NOT need to be on precautions for TB r/o.
[2024-01-17] MEDS: LORazepam 0.5 mg Tablet PO (20:09)
[2024-01-18] VITALS (23 sets, daily range): BP systolic 108–142; BP diastolic 54–76; PULSE 80–120; RESP 19–39; TEMP 36.3–36.9; O2SAT 84–95
--- NOTE | 2024-01-18 00:49 | PC.NURSE ---
Lab states they threw away patient's stool sample because they did not have an order for it. Specimen collected in computer so that the order would show for lab. Another stool sample will need to be collected.
[2024-01-18] MEDS: dilTIAZem 60 mg Tablet PO ×4 (01:30→20:22)
--- NOTE | 2024-01-18 02:15 | PC.NURSE ---
Patient required increase from 4 to 6 liters on her oxygen. Crackles noted to left lung. Dr. Holbrook notified. Lasix x1 ordered.
[2024-01-18] MEDS: ipratropium 0.5 mg/2.5 mL Neb INHALATION ×4 (02:31→19:48)
[2024-01-18] MEDS: levalbuterol 0.63 mg/3 mL Neb 0.630000000000000004 MG INHALATION ×4 (02:31→19:48)
[2024-01-18] MEDS: FUROsemide 10 mg/mL SDV 2mL 20 MG IVP ×2 (02:54→10:07)
--- NOTE | 2024-01-18 05:46 | PC.NURSE ---
Patient's oxygen saturation 95-99 percent on 6 liters. Titrated back down to 4 liters. RT notified.
[2024-01-18 05:54] LABS: Basophils # 0.1 10^3/uL (0.0-0.1); Basophils % 0.4 %; Eosinophils # 0.2 10^3/uL (0.0-0.8); Eosinophils % 1.6 %; Hematocrit 27.2 % (36-47); Lymphocytes # 0.8 10^3/uL (0.8-4.8); Lymphocytes % 7.2 %; Mean Corpuscular HGB Conc 29.4 g/dL (30-55); Mean Corpuscular Hemoglobin 26.7 pg (27-33); Mean Corpuscular Volume 90.7 fl (85-98); Mean Platelet Volume 9.1 fL (7.4-10.4); Monocytes # 1.1 10^3/uL (0.2-0.9); Monocytes % 9.7 %; Neutrophils # 9.14 10^3/uL (1.8-7.7); Nucleated Red Blood Cells % 0 %; Platelet Count 407 10^3/cmm (157-399); Red Cell Distribution Width 14.9 % (12.1-15.1); White Blood Count 11.42 10^3/uL (3.29-11.43)
[2024-01-18 06:17] LABS: Procalcitonin 0.06 ng/mL (0-0.5)
[2024-01-18 06:37] LABS: Alanine Aminotransferase 21 U/L (0-33); Albumin Level 2.8 g/dL (3.5-5.2); Alkaline Phosphatase 75 U/L (35-105); Anion Gap 12.6 (5-19); Aspartate Amino Transferase 22 U/L (0-32); Blood Urea Nitrogen 15 mg/dL (8-23); Calcium 8.7 mg/dL (8.5-10.5); Carbon Dioxide 35 mmol/L (22-29); Chloride 95 mmol/L (98-107); Creatinine Clr Calc Pharmacy 41.9213; Globulin 3.4 g/dL (1.3-4.6); Glucose 123 mg/dL (65-115); Magnesium 1.6 mg/dL (1.7-2.3); Osmolality Calculated 290 mOsm/kg (285-295); Phosphorus 2.7 mg/dL (2.5-4.5); Potassium 3.6 mmol/L (3.5-5.1); Sodium 139 mmol/L (136-145); Total Bilirubin 0.2 mg/dL (0.15-1.2); Total Protein 6.2 g/dL (6.6-8.7)
[2024-01-18 06:48] LABS: Glucose Point of Care 133 mg/dL (70-110)
--- NOTE | 2024-01-18 06:53 | ECG_ITS ---
[facility] Test Date: 2024-01-18 Pat Name: Nadia Staley Department: Room: 264 Gender: Female Clinical Resource Nurse: : 1935 Requested By: Ashlie Holbrook Order Number: [id number] Cristofer MD: Minor Elliott M.D. Measurements Intervals [place] Rate: 88 P: 0 [place]: 0 QRS: 45 QRSD: 99 T: 261 QT: 417 QTc: 505 Interpretive Statements ATRIAL FLUTTER NONSPECIFIC ST & T-WAVE ABNORMALITY PROLONGED QT INTERVAL Compared to ECG 01/06/2024 22:18:57 Prolonged QT interval now present T-wave abnormality still present Electronically Signed On 01-18-2024 21:33:48 CDT by Minor Elliott M.D. [email or web address]
--- NOTE | 2024-01-18 06:57 | P.PN_ITS ---
Subjective 2 Subjective: Infectious disease progress note Patient had a rapid response this morning when she had an episode of syncope while moving from the bedside commode. She was noted to have desaturated down to 72%, was placed on BiPAP thereafter. No further fever. Leukocytosis is now resolved. Medications: Reviewed: Yes Vitals/I&O/Wt Last Vital Signs Temp 98.2 F 01/19/24 04:00 Pulse 90 01/19/24 05:45 Resp 22 H 01/19/24 04:00 BP 110/58 01/19/24 04:00 Pulse Ox 96 01/19/24 04:00 O2 Del Method BiPAP 01/19/24 04:00 O2 Flow Rate 6 01/19/24 00:00 FiO2 60 01/19/24 03:56 01/18/24 01/18/24 01/19/24 14:59 22:59 06:59 Intake Total 290 / 290 410 / 700 Balance 290 / 290 410 / 700 Weight last 48 hrs Weight 81.511 kg Physical Exam 2 Narrative: General: Placed on BiPAP, currently in bed HEENT: PERRLA, pupils bilaterally equal and reactive, pallors not present Chest: Conducted sounds bilaterally to auscultation Data 01/19/24 06:02 01/19/24 06:02 Micro: Microbiology 01/14/24 03:40 Blood Culture - Final Blood NO GROWTH AFTER 5 DAYS 01/14/24 03:40 Blood Culture - Final Blood NO GROWTH AFTER 5 DAYS A&P Assessment and plan (1) Pneumonia: Qualifiers: Pneumonia type: due to unspecified organism Laterality: left Lung location: unspecified part of lung Qualified Code(s): J18.9 - Pneumonia, unspecified organism (2) Leukocytosis: Plan 88-year-old lady admitted due to community-acquired pneumonia, treated with broad-spectrum antibiotics, transiently showed improvement, however since then has developed recurrent persistent leukocytosis and continues to have intermittent low grade fever. she has had a worsening left lower lobe consolidation on serial imaging.Ct chest obtained on January 14, 2024 shows large left lower lobe consolidation with surrounding inflammatory changes, small pleural effusion. No drainable collection. No empyema. Study negative for PE. Currently on broad-spectrum antibiotic meropenem and linezolid since January 16, 2024. Negative respiratory and blood cultures Negative Legionella antigen, has received azithromycin and levofloxacin earlier during course of admission. Lower possibility of fungal etiology given patient is not otherwise immunocompromised. However given lack of improvement , ordered for opportunistic infection evaluation negtaive Quantiferon screen Pending urine histoplasma Ag, cocci Ab, BDG, aspergillus galactomannan Ag ; add serum sryptococcal AG Plan: Improving leukocytosis and fever curve however still continues to be ill , no significant improvement in respiratory status , desaturated this morning with minimal exertion Continue meropenem and linezolid empirically, will plan to complete a 7 to 10 day course of abx consideration for change to oral therapy when nearing discharge Attestations 2 Medical Necessity Statement*: per admitting attending note Coding Level of Care Code Acute Code for Chg Fwd Moderate MDM includes number and complexity of problems actively addressed during encounter, amount and/or complexity of data reviewed/ordered and described risk of complication, morbidity or mortality of management as documented Diagnoses Pneumonia of left lung due to infectious organism, unspecified part of lung J18.9 Pneumonia type: due to unspecified organism Laterality: left Lung location: unspecified part of lung Leukocytosis D72.829
--- NOTE | 2024-01-18 06:59 | PC.NURSE ---
Addendum entered by Latonya Dean RN 01/18/24 07:30: Vicenta, daughter, notified. Addendum entered by Latonya Dean RN 01/18/24 07:10: Patient vital signs are currently stable. Oxygen saturation maintaining 90s on Bipap. Addendum entered by Latonya Dean RN 01/18/24 07:09: Patient's oxygen found to be 77 percent shortly after rapid response called. Original Note: Patient assisted to bedside commode. When patient sat back down on the bed, she fell backwards onto the bed. Unable to arouse patient. Rapid response called at 06:44. Patient aroused a couple minutes after the rapid was called. Bipap placed on patient. See vital signs.
--- NOTE | 2024-01-18 08:13 | PC.PT ---
Physical therapy: Patient was rapid responsed 10 minutes before PT tried to round on patient per nurse. I consulted nurse and she explaiend rapid response and need to hold. Patient spo2 was 78% on bipap and patient had very high HR with intensed labored breathing.
[2024-01-18] MEDS: budesonide 0.5 mg/2 mL Neb INHALATION ×2 (08:59→19:48)
[2024-01-18] MEDS: guaiFENesin 600 mg Tablet PO ×2 (10:07→17:32)
[2024-01-18] MEDS: nystatin 100,000 unit/mL UDC 5 mL 100000 UNIT PO ×4 (10:08→20:22)
[2024-01-18] MEDS: linezolid 600 mg Tablet PO ×2 (10:08→20:22)
[2024-01-18] MEDS: pantoprazole DR 40 mg Tablet PO (10:08)
[2024-01-18] MEDS: enoxaparin 40 mg/0.4 mL Syringe SUBCUT (10:09)
[2024-01-18] MEDS: meropenem 1,000 MG in sodium chloride 0.9% (plus) 50 ML 100 MG IV ×2 (10:09→20:22)
[2024-01-18 14:10] LABS: Quantiferon Mitogen 7.23 IU/mL; Quantiferon Nil 0.02 IU/mL; Quantiferon TB Gold NEGATIVE (NEGATIVE)
--- NOTE | 2024-01-18 14:48 | P.PN_ITS ---
Subjective 2 Subjective: Overnight, patient had episode of syncope when getting up and ambulating, this morning she is alert to person, to place, not to time she is currently on BiPAP, she gives me the thumbs up that she is doing okay she does not complain of severe chills, does report shortness of breath, Vitals/I&O/Wt Last Vital Signs Temp 98.1 F 01/18/24 11:10 Pulse 97 01/18/24 13:40 Resp 29 H 01/18/24 13:40 BP 126/56 01/18/24 11:10 Pulse Ox 91 01/18/24 13:40 O2 Del Method Nasal Cannula 01/18/24 13:40 O2 Flow Rate 6 01/18/24 13:40 FiO2 60 01/18/24 08:00 01/17/24 01/18/24 01/18/24 22:59 06:59 14:59 Intake Total 540 / 1140 50 / 1190 290 / 290 Output Total Balance 539 / 1139 50 / 1189 290 / 290 Weight last 48 hrs Weight 81.511 kg Weight 78.426 kg Physical Exam 2 Const: COMMON NORMALS: no acute distress Neck/C-Spine: COMMON NORMALS: no JVD Resp: COMMON NORMALS: normal respiratory effort, No retractions and No use of accessory muscles AUSCULTATION: crackles and wheezes Cardio: COMMON NORMALS: no JVD, regular rate, regular rhythm, S1 normal heart sound present and S2 normal heart sound present RATE: regular rate RHYTHM: regular rhythm HEART SOUNDS: S1 normal heart sound present and S2 normal heart sound present GI: COMMON NORMALS: Normal to inspection, nondistended, normoactive bowel sounds present and non-tender Extremity: COMMON NORMALS: no pedal edema Psych: COMMON NORMALS: mental status grossly normal Data 01/18/24 05:26 01/18/24 05:26 A&P Assessment and plan (1) Community acquired pneumonia: Qualifiers: Laterality: right Lung location: lower lobe of lung Qualified Code(s): J18.9 - Pneumonia, unspecified organism (2) Swelling of lower extremity: (3) COPD (chronic obstructive pulmonary disease): Qualifiers: COPD type: emphysema Emphysema type: other Qualified Code(s): J43.8 - Other emphysema (4) Chronic respiratory failure with hypoxia, on home O2 therapy: (5) Acute CHF (congestive heart failure): (6) UTI (urinary tract infection): (7) Physical deconditioning: (8) Acute respiratory failure with hypoxia and hypercapnia: (9) Goals of care, counseling/discussion: (10) Respiratory distress, acute: Plan 88-year-old female currently being treated for pneumonia and COPD exacerbation, CHF exacerbation Acute hypoxic hypercarbic respiratory failure ? Multifactorial from moderate to severe COPD ? CT scan shows advanced chronic paraseptal emphysematous changes ? Pneumonia CT angiogram Advanced chronic paraseptal emphysematous changes. Subtotal consolidation LEFT lower lobe with air bronchograms. Trace pleural fluid. Diffuse interstitial thickening throughout the LEFT lung compatible with edema. Fluid along the LEFT fissure. Patchy infiltrates RIGHT lower lobe with trace fluid. Subpleural opacity RIGHT upper lobe measuring 2.1 cm. Recommend interval follow-up after treatment. ? Fluid overload -With evidence of moderate respiratory failure nasal flaring, intercostal retractions, suprasternal retractions ? Plan ? Continue BiPAP as needed during the day for shortness of breath, scheduled during the night ? Continue broad-spectrum antibiotic therapy, side effects, meropenem ? Infectious disease consulted - 1 dose of IV Lasix today -Has declined steroids during her hospitalization due to concerns for adverse side effects -Monitor respiratory status closely ? Overall goals of care continue medical interventions for now, until family arrives on Saturday, if her condition deteriorates, patient and family agreement to proceed with full comfort care ? Morphine 1 mg every 4 hours as needed for pain, air hunger ? Ativan 0.5 mg every 6 as needed for anxiety ? Physical deconditioning, secondary to underlying COPD -Acute on chronic anemia, monitor Blood cultures negative, urine culture positive for Staphylococcus epidermidis likely contaminant as per ID. 2D echo done this admission showed LVEF 60 to 65%, grade 1 diastolic dysfunction. Lasix changed to 20 mg p.o. daily DuoNebs every 6 hours. Episode of syncope overnight, continue to monitor closely DVT prophylaxis with Lovenox PUD prophylaxis with Protonix 40 mg daily. She is DNR/DNI. ? Status is critical, prognosis for Spoke to patient, spoke to patient's family Plan for today, continue IV antibiotics, 1 dose of IV Lasix, monitor respiratory status closely, will await family meeting, Attestations 2 Medical Necessity Statement*: Patient requires hospitalization for respiratory failure secondary to pneumonia Diagnoses Community acquired pneumonia J18.9 Laterality: right Lung location: lower lobe of lung Swelling of lower extremity M79.89 Other emphysema J43.8 COPD type: emphysema Emphysema type: other Chronic respiratory failure with hypoxia, on home O2 therapy J96.11; Z99.81 Acute CHF (congestive heart failure) I50.9 UTI (urinary tract infection) N39.0 Physical deconditioning R53.81 Acute respiratory failure with hypoxia and hypercapnia J96.01; J96.02 Goals of care, counseling/discussion Z71.89 Respiratory distress, acute R06.03
[2024-01-19] VITALS (16 sets, daily range): BP systolic 110–138; BP diastolic 58–85; PULSE 74–116; RESP 17–35; TEMP 36.4–36.9; O2SAT 88–98
[2024-01-19] MEDS: morphine 4 mg/mL SDV 1 mL 1 MG IVP (01:17)
[2024-01-19] MEDS: LORazepam 2 mg/mL INJ 10 mL MDV 0.5 MG IVP ×2 (01:17→21:55)
[2024-01-19] MEDS: dilTIAZem 60 mg Tablet PO ×4 (01:24→20:20)
[2024-01-19] MEDS: levalbuterol 0.63 mg/3 mL Neb 0.630000000000000004 MG INHALATION ×4 (02:38→19:25)
[2024-01-19] MEDS: ipratropium 0.5 mg/2.5 mL Neb INHALATION ×4 (02:38→19:25)
[2024-01-19 06:11] LABS: Basophils % 0.2 %; Eosinophils % 0.1 %; Hematocrit 26.5 % (36-47); Lymphocytes # 1.1 10^3/uL (0.8-4.8); Lymphocytes % 7.8 %; Mean Corpuscular HGB Conc 29.4 g/dL (30-55); Mean Corpuscular Hemoglobin 26.4 pg (27-33); Mean Corpuscular Volume 89.8 fl (85-98); Mean Platelet Volume 9.1 fL (7.4-10.4); Monocytes # 1.2 10^3/uL (0.2-0.9); Monocytes % 8.6 %; Neutrophils # 11.34 10^3/uL (1.8-7.7); Neutrophils % 82.3 %; Nucleated Red Blood Cells % 0 %; Platelet Count 325 10^3/cmm (157-399); Red Blood Count 2.95 10^6/uL (3.85-5.65); Red Cell Distribution Width 15.2 % (12.1-15.1)
[2024-01-19 06:34] LABS: Alanine Aminotransferase 20 U/L (0-33); Albumin Level 2.9 g/dL (3.5-5.2); Alkaline Phosphatase 79 U/L (35-105); Anion Gap 13.2 (5-19); Aspartate Amino Transferase 22 U/L (0-32); Blood Urea Nitrogen 21 mg/dL (8-23); C Reactive Protein 56.4 mg/L (0.0-4.9); Calcium 8.6 mg/dL (8.5-10.5); Carbon Dioxide 37 mmol/L (22-29); Chloride 93 mmol/L (98-107); Globulin 3.3 g/dL (1.3-4.6); Glucose 139 mg/dL (65-115); Magnesium 1.7 mg/dL (1.7-2.3); Osmolality Calculated 293 mOsm/kg (285-295); Phosphorus 3.4 mg/dL (2.5-4.5); Potassium 4.2 mmol/L (3.5-5.1); Sodium 139 mmol/L (136-145); Total Bilirubin 0.3 mg/dL (0.15-1.2); Total Protein 6.2 g/dL (6.6-8.7)
[2024-01-19 06:35] LABS: Creatinine Clr Calc Pharmacy 37.7292
[2024-01-19 06:39] LABS: Procalcitonin 0.08 ng/mL (0-0.5)
[2024-01-19] MEDS: budesonide 0.5 mg/2 mL Neb INHALATION ×2 (09:03→19:24)
[2024-01-19] MEDS: linezolid 600 mg Tablet PO ×2 (09:24→20:20)
[2024-01-19] MEDS: meropenem 1,000 MG in sodium chloride 0.9% (plus) 50 ML 100 MG IV ×2 (09:25→19:59)
[2024-01-19] MEDS: pantoprazole DR 40 mg Tablet PO (09:25)
[2024-01-19] MEDS: guaiFENesin 600 mg Tablet PO ×2 (09:25→16:04)
[2024-01-19] MEDS: nystatin 100,000 unit/mL UDC 5 mL 100000 UNIT PO ×3 (09:25→20:20)
[2024-01-19] MEDS: enoxaparin 40 mg/0.4 mL Syringe SUBCUT (10:39)
--- NOTE | 2024-01-19 12:07 | P.PN_ITS ---
Subjective 2 Subjective: Patient was seen this morning, she is alert to person, to place, not to time she follows all commands, she tells me that she feels significantly better, currently on nasal cannula, on 6 L, during my conversation with her, she becomes short of breath with a few words O2 sats dropped into the low 80s, they do quickly recover into the mid 80s, currently she is saturating 88%, alert oriented x 2, following all commands, denying any chest pain, palpitations, she met with her daughter yesterday from [place] ? I had a family meeting with patient and her daughter from [place] and her other daughter at bedside ? I had a detailed discussion about Nadia's goals of care ? Discussed her chronic respiratory failure secondary to COPD her poor pulmonary reserve ? Discussed her current hospitalization for COPD exacerbation, pneumonia, ? Her white blood cell count is improving, she has been afebrile, overall overall her mentation is improved ? However during our conversation with patient and her family at bedside her O2 sats do drop into the low 80s, when she says a few words with minimal exertion or movement her O2 sats dropped into the low 80s but they do recover ? I did detailed discussion with patient's family that at times she does need BiPAP for intermittent respiratory distress, if she overexerts herself, her oxygen requirements do increase at times ? My concern is her overall goals of care, Nadia has made a desire that she wants to go home however there is no one for her at home, there is no one to take care of her at home and given her episodes of respiratory distress and hypoxemia here in the hospital if she does go home she does have a high risk of morbidity and mortality at home high risk of respiratory distress at home high risk of suffering high risk of morbidity mortality at home ? My concern is is what happens regardless of where Nadia goes when she has these episodes of significant hypoxemia, these episodes of hypoxemia require increasing her oxygen requirements or even requiring intermittent BiPAP, without this she has a high risk of morbidity and mortality high risk of suffering ? She is DNR/DNI?confirmed this with her with family members at bedside ? In terms of her overall goals of care I have not got a clear answer for what Nadia wants except that she wants to go home ? Options I discussed with Nadia and her family were including but not limited to ? Further option is for her to go to a long-term care facility such as [facility] in [place] which have salesperson burial plots, they can watch her closely give her time, and see if she recovers enough that she can eventually either go home or to a skilled nursing ? The other option I discussed was watching her here for for a few more days in the hospital such that her respiratory condition improved so that we can get her to a skilled nursing, she could be monitored closely at the skilled nursing, however my concern would be if she were to go to a skilled nursing what happens if she has episodes of respiratory distress or these oxygen desaturation episodes, with a send her back, this whole process group carries some degree of morbidity and mortality and suffering, options available would be hospice at the skilled nursing or trying to see if she could qualify for BiPAP that she could use intermittently BiPAP at the skilled nursing to help with these episodes of respiratory distress and hypoxemia then ? The other option I discussed was for her to go home on hospice, the goal of this option would be to emphasize her quality of life she could be at home which is her wish, and if she were to have episodes of respiratory distress, we could ease her pain and ease her suffering on hospice, emphasize her quality of life, ? After discussing the risk and benefits of all options, Nadia and her family voiced understanding, all questions answered, she and her family are not ready to make a decision they want to talk amongst themselves ? I discussed my plan to continue to monitor here in the hospital, continue IV antibiotics, continue steroids and monitor her closely, Vitals/I&O/Wt Last Vital Signs Temp 97.8 F 01/19/24 07:34 Pulse 74 01/19/24 08:00 Resp 20 H 01/19/24 08:00 BP 138/85 01/19/24 07:34 Pulse Ox 88 L 01/19/24 08:00 O2 Del Method Nasal Cannula 01/19/24 08:00 O2 Flow Rate 6 01/19/24 08:00 FiO2 60 01/19/24 03:56 01/18/24 01/19/24 01/19/24 22:59 06:59 14:59 Intake Total 410 / 700 410 / 410 Balance 410 / 700 410 / 410 Weight last 48 hrs Weight 81.511 kg Physical Exam 2 Const: COMMON NORMALS: no acute distress ORIENTATION/CONSCIOUSNESS: Yes awake, Yes oriented to person and Yes oriented to place Neck/C-Spine: COMMON NORMALS: no JVD Resp: COMMON NORMALS: normal respiratory effort, No retractions and No use of accessory muscles AUSCULTATION: wheezes Cardio: COMMON NORMALS: no JVD, regular rate, regular rhythm, S1 normal heart sound present and S2 normal heart sound present RATE: regular rate RHYTHM: regular rhythm HEART SOUNDS: S1 normal heart sound present and S2 normal heart sound present GI: COMMON NORMALS: Normal to inspection, nondistended, normoactive bowel sounds present and non-tender Extremity: COMMON NORMALS: no pedal edema Neuro: SENSORIUM/ORIENTATION: Yes oriented to person and Yes oriented to place Psych: COMMON NORMALS: mental status grossly normal Data 01/19/24 06:02 01/19/24 06:02 Micro: Microbiology 01/14/24 03:40 Blood Culture - Final Blood NO GROWTH AFTER 5 DAYS 01/14/24 03:40 Blood Culture - Final Blood NO GROWTH AFTER 5 DAYS A&P Assessment and plan (1) Community acquired pneumonia: Qualifiers: Laterality: right Lung location: lower lobe of lung Qualified Code(s): J18.9 - Pneumonia, unspecified organism (2) Swelling of lower extremity: (3) COPD (chronic obstructive pulmonary disease): Qualifiers: COPD type: emphysema Emphysema type: other Qualified Code(s): J43.8 - Other emphysema (4) Chronic respiratory failure with hypoxia, on home O2 therapy: (5) Acute CHF (congestive heart failure): (6) UTI (urinary tract infection): (7) Physical deconditioning: (8) Acute respiratory failure with hypoxia and hypercapnia: (9) Goals of care, counseling/discussion: (10) Respiratory distress, acute: Plan 88-year-old female currently being treated for pneumonia and COPD exacerbation, CHF exacerbation Acute hypoxic hypercarbic respiratory failure ? Multifactorial from moderate to severe COPD ? CT scan shows advanced chronic paraseptal emphysematous changes ? Pneumonia CT angiogram Advanced chronic paraseptal emphysematous changes. Subtotal consolidation LEFT lower lobe with air bronchograms. Trace pleural fluid. Diffuse interstitial thickening throughout the LEFT lung compatible with edema. Fluid along the LEFT fissure. Patchy infiltrates RIGHT lower lobe with trace fluid. Subpleural opacity RIGHT upper lobe measuring 2.1 cm. Recommend interval follow-up after treatment. ? Fluid overload -With evidence of moderate respiratory failure nasal flaring, intercostal retractions, suprasternal retractions ? Plan -Currently on 6 L ? Continue BiPAP as needed during the day for shortness of breath, scheduled during the night ? Continue broad-spectrum antibiotic therapy Zyvox, meropenem ? Infectious disease consulted -Will hold off on Lasix for today -Has declined steroids during her hospitalization due to concerns for adverse side effects -Monitor respiratory status closely ? Overall goals of care continue medical interventions for now, until family arrives on Saturday, if her condition deteriorates, patient and family agreement to proceed with full comfort care ? Morphine 1 mg every 4 hours as needed for pain, air hunger ? Ativan 0.5 mg every 6 as needed for anxiety ? Physical deconditioning, secondary to underlying COPD -Acute on chronic anemia, monitor Blood cultures negative, urine culture positive for Staphylococcus epidermidis likely contaminant as per ID. 2D echo done this admission showed LVEF 60 to 65%, grade 1 diastolic dysfunction. Lasix changed to 20 mg p.o. daily DuoNebs every 6 hours. Episode of syncope overnight, continue to monitor closely DVT prophylaxis with Lovenox PUD prophylaxis with Protonix 40 mg daily. She is DNR/DNI. ? Status is critical, prognosis for Spoke to patient, spoke to patient's family Patient was seen this morning, she is alert to person, to place, not to time she follows all commands, she tells me that she feels significantly better, currently on nasal cannula, on 6 L, during my conversation with her, she becomes short of breath with a few words O2 sats dropped into the low 80s, they do quickly recover into the mid 80s, currently she is saturating 88%, alert oriented x 2, following all commands, denying any chest pain, palpitations, she met with her daughter yesterday from [place] ? I had a family meeting with patient and her daughter from [place] and her other daughter at bedside ? I had a detailed discussion about Nadia's goals of care ? Discussed her chronic respiratory failure secondary to COPD her poor pulmonary reserve ? Discussed her current hospitalization for COPD exacerbation, pneumonia, ? Her white blood cell count is improving, she has been afebrile, overall overall her mentation is improved ? However during our conversation with patient and her family at bedside her O2 sats do drop into the low 80s, when she says a few words with minimal exertion or movement her O2 sats dropped into the low 80s but they do recover ? I did detailed discussion with patient's family that at times she does need BiPAP for intermittent respiratory distress, if she overexerts herself, her oxygen requirements do increase at times ? My concern is her overall goals of care, Nadia has made a desire that she wants to go home however there is no one for her at home, there is no one to take care of her at home and given her episodes of respiratory distress and hypoxemia here in the hospital if she does go home she does have a high risk of morbidity and mortality at home high risk of respiratory distress at home high risk of suffering high risk of morbidity mortality at home ? My concern is is what happens regardless of where Nadia goes when she has these episodes of significant hypoxemia, these episodes of hypoxemia require increasing her oxygen requirements or even requiring intermittent BiPAP, without this she has a high risk of morbidity and mortality high risk of suffering ? She is DNR/DNI?confirmed this with her with family members at bedside ? In terms of her overall goals of care I have not got a clear answer for what Nadia wants except that she wants to go home ? Options I discussed with Nadia and her family were including but not limited to ? Further option is for her to go to a long-term care facility such as [facility] in [place] which have salesperson burial plots, they can watch her closely give her time, and see if she recovers enough that she can eventually either go home or to a skilled nursing ? The other option I discussed was watching her here for for a few more days in the hospital such that her respiratory condition improved so that we can get her to a skilled nursing, she could be monitored closely at the skilled nursing, however my concern would be if she were to go to a skilled nursing what happens if she has episodes of respiratory distress or these oxygen desaturation episodes, with a send her back, this whole process group carries some degree of morbidity and mortality and suffering, options available would be hospice at the skilled nursing or trying to see if she could qualify for BiPAP that she could use intermittently BiPAP at the skilled nursing to help with these episodes of respiratory distress and hypoxemia then ? The other option I discussed was for her to go home on hospice, the goal of this option would be to emphasize her quality of life she could be at home which is her wish, and if she were to have episodes of respiratory distress, we could ease her pain and ease her suffering on hospice, emphasize her quality of life, ? After discussing the risk and benefits of all options, Nadia and her family voiced understanding, all questions answered, she and her family are not ready to make a decision they want to talk amongst themselves ? I discussed my plan to continue to monitor here in the hospital, continue IV antibiotics, continue steroids and monitor her closely, -Spent over 60 minutes with patient and family Plan for today, continue IV antibiotics, monitor respiratory status closely, await family and patient's decision Attestations 2 Medical Necessity Statement*: Patient requires hospitalization for acute hypoxic respiratory failure Diagnoses Community acquired pneumonia J18.9 Laterality: right Lung location: lower lobe of lung Swelling of lower extremity M79.89 Other emphysema J43.8 COPD type: emphysema Emphysema type: other Chronic respiratory failure with hypoxia, on home O2 therapy J96.11; Z99.81 Acute CHF (congestive heart failure) I50.9 UTI (urinary tract infection) N39.0 Physical deconditioning R53.81 Acute respiratory failure with hypoxia and hypercapnia J96.01; J96.02 Goals of care, counseling/discussion Z71.89 Respiratory distress, acute R06.03
--- NOTE | 2024-01-19 14:22 | PC.NURSE ---
Pt medication delay d/t being BiPap dependent
[2024-01-20] VITALS (9 sets, daily range): BP systolic 100–115; BP diastolic 58–60; PULSE 87–100; RESP 18–29; TEMP 36.4–36.6; O2SAT 91–98
[2024-01-20] MEDS: ipratropium 0.5 mg/2.5 mL Neb INHALATION ×2 (02:27→07:18)
[2024-01-20] MEDS: levalbuterol 0.63 mg/3 mL Neb 0.630000000000000004 MG INHALATION ×2 (02:27→07:18)
[2024-01-20 03:54] LABS: Basophils % 0.2 %; Eosinophils # 0.1 10^3/uL (0.0-0.8); Eosinophils % 0.4 %; Hematocrit 29.1 % (36-47); Lymphocytes % 6.8 %; Mean Corpuscular HGB Conc 29.2 g/dL (30-55); Mean Corpuscular Hemoglobin 26.2 pg (27-33); Mean Corpuscular Volume 89.8 fl (85-98); Mean Platelet Volume 9.4 fL (7.4-10.4); Monocytes # 1.2 10^3/uL (0.2-0.9); Monocytes % 8.3 %; Neutrophils # 11.87 10^3/uL (1.8-7.7); Neutrophils % 83.4 %; Nucleated Red Blood Cells % 0 %; Platelet Count 294 10^3/cmm (157-399); Red Blood Count 3.24 10^6/uL (3.85-5.65); Red Cell Distribution Width 15.1 % (12.1-15.1); White Blood Count 14.24 10^3/uL (3.29-11.43)
[2024-01-20 04:30] LABS: Alanine Aminotransferase 20 U/L (0-33); Albumin Level 2.9 g/dL (3.5-5.2); Alkaline Phosphatase 84 U/L (35-105); Anion Gap 14.3 (5-19); Aspartate Amino Transferase 20 U/L (0-32); Blood Urea Nitrogen 26 mg/dL (8-23); C Reactive Protein 77.6 mg/L (0.0-4.9); Calcium 8.8 mg/dL (8.5-10.5); Carbon Dioxide 35 mmol/L (22-29); Chloride 93 mmol/L (98-107); Creatinine Clr Calc Pharmacy 33.7729; Globulin 3.3 g/dL (1.3-4.6); Glucose 143 mg/dL (65-115); Magnesium 1.8 mg/dL (1.7-2.3); Osmolality Calculated 293 mOsm/kg (285-295); Phosphorus 3.5 mg/dL (2.5-4.5); Potassium 4.3 mmol/L (3.5-5.1); Sodium 138 mmol/L (136-145); Total Bilirubin 0.2 mg/dL (0.15-1.2); Total Protein 6.2 g/dL (6.6-8.7)
[2024-01-20] MEDS: dilTIAZem 60 mg Tablet PO (06:14)
[2024-01-20] MEDS: budesonide 0.5 mg/2 mL Neb INHALATION (07:18)
[2024-01-20] MEDS: morphine 4 mg/mL SDV 1 mL 1 MG IVP (09:25)
[2024-01-20] MEDS: guaiFENesin 600 mg Tablet PO (09:25)
[2024-01-20] MEDS: linezolid 600 mg Tablet PO (09:25)
[2024-01-20] MEDS: nystatin 100,000 unit/mL UDC 5 mL 100000 UNIT PO (09:25)
[2024-01-20] MEDS: LORazepam 2 mg/mL INJ 10 mL MDV 0.5 MG IVP (09:25)
[2024-01-20] MEDS: pantoprazole DR 40 mg Tablet PO (09:26)
[2024-01-20] MEDS: meropenem 1,000 MG in sodium chloride 0.9% (plus) 50 ML 100 MG IV (09:26)
[2024-01-20] MEDS: enoxaparin 40 mg/0.4 mL Syringe SUBCUT (09:28)
--- NOTE | 2024-01-20 10:02 | PC.NURSE ---
Pt awake and confused A&Ox1-2. Able to speak but complains of air hunger, anxiety, and pain. On nasal cannula. Places pt back on BiPap. This RN gives Ativan and Morphine per orders for anxiety, air hunger. Medication pushed slow per protocol. Pt becomes lethargic. Dr. Flanagan assesses pt. Pt begins to arouse after approx. 10 minutes. Pt continues to be tired, but able to arouse to verbal stimuli. 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
--- NOTE | 2024-01-20 10:41 | PC.NURSE ---
Pt family arrives. Pt has labored breathing at this point, not responding. Family verbalizes that they would just like her made comfortable at this time. Family verbalizes they are thankful for the Morphine and Ativan treatment available.
[2024-01-20] MEDS: morphine 4 mg/mL SDV 1 mL IVP ×3 (12:01→15:22)
--- NOTE | 2024-01-20 12:10 | PC.SOCIAL ---
IMM Update IMM Updated and reviewed w/ patient while she was on O2 via NC. Copy left @ bedside and copy in chart dated, and initialed. Patients condition changed after CM left room.
[2024-01-20] MEDS: LORazepam 2 mg/mL INJ 10 mL MDV IVP ×2 (13:30→15:21)
--- NOTE | 2024-01-20 13:56 | PC.NURSE ---
Family at bedside. Verbalizes wishes for comfort care. Pt on 2L/NC at this time. Morphine and Ativan given for comfort.
--- NOTE | 2024-01-20 16:04 | PC.NURSE ---
Family came to ask nurse to check on patient due to breathing changes. patient observed having agonal breaths. Auscultated no heart sounds. verified with second nurse. Time of 1557. Physician notified. 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
--- NOTE | 2024-01-20 16:07 | P.PN_ITS ---
Subjective 2 Subjective: - Patient was seen earlier this morning ? Early in the morning, patient had a episode of desaturation, with O2 sat dropping into the 60s, based on BiPAP ? She seen on BiPAP, difficult to arouse she does awaken to sternal rub, but easily falls back asleep, ? She is found in moderate respiratory distress intercostal retraction suprasternal retractions nasal flaring, O2 sats remain in the mid 80s, currently in acute hypoxic hypercarbic respiratory failure and moderate respiratory distress ? She was monitored throughout the morning, she does awaken at times, can follow commands at times but falls back asleep, is encephalopathic most of the time, I cannot get straightforward answers from her, continues to have episodes of respiratory distress, intercostal retractions suprasternal retractions nasal flaring tachypnea tachycardia ? I had a family meeting with patient's 2 daughters at bedside currently patient's current condition, during this time, patient was in moderate respiratory distress on BiPAP, nonresponsive, family at bedside patient is acute hypoxic hypercarbic respiratory failure, acute respiratory distress, discussed goals of care, after discussing the risk and benefits of all options, patient's family voiced understanding, all questions answered, specifically patient's 2 daughters at bedside want to proceed with comfort care ? Patient's daughters does not want Nadia to live like this, they do not want Nadia to suffer, they feel Nadia is currently suffering, and her respiratory distress, she is becoming nonresponsive, they do not want to see Nadia suffer like this, ? We had a detailed discussion with comfort care is, it is not about hastening her but rather easing her pain easing her suffering allowing her to pass away comfortably ? Discussed risk and benefits of comfort care, they voiced understanding, all questions answered, shared decision making, proceeding with comfort care, agreed ? Will proceed with comfort care order set, Vitals/I&O/Wt Last Vital Signs Temp 97.8 F 01/20/24 07:39 Pulse 98 01/20/24 07:43 Resp 24 H 01/20/24 12:01 BP 100/59 01/20/24 07:39 Pulse Ox 91 01/20/24 07:39 O2 Del Method Simple Mask 01/20/24 07:39 O2 Flow Rate 6 01/20/24 07:22 FiO2 60 01/20/24 11:22 01/20/24 01/20/24 01/20/24 06:59 14:59 22:59 Intake Total 50 / 1440 290 / 290 Balance 50 / 1440 290 / 290 Weight last 48 hrs Weight 79.107 kg Physical Exam 2 Const: COMMON NORMALS: no acute distress EXAM LIMITATIONS: altered mental status ORIENTATION/CONSCIOUSNESS: Yes awake, Yes oriented to person and Yes confused; not oriented to place and not oriented to time Resp: COMMON NORMALS: normal respiratory effort, No retractions and No use of accessory muscles AUSCULTATION: crackles and wheezes OTHER: Moderate respiratory distress intercostal retraction suprasternal retractions nasal flaring Cardio: COMMON NORMALS: regular rhythm, S1 normal heart sound present and S2 normal heart sound present RATE: tachycardic RHYTHM: regular rhythm H EART SOUNDS: S1 normal heart sound present and S2 normal heart sound present GI: COMMON NORMALS: Normal to inspection, nondistended, normoactive bowel sounds present and non-tender Extremity: COMMON NORMALS: no pedal edema Neuro: SENSORIUM/ORIENTATION: Yes oriented to person, No oriented to place and No oriented to time Data 01/20/24 03:15 01/20/24 03:15 Micro: Microbiology 01/20/24 03:15 Cryptococcal Antigen (Serum) - Final Blood A&P Assessment and plan (1) Need for comfort care: (2) Community acquired pneumonia: Qualifiers: Laterality: right Lung location: lower lobe of lung Qualified Code(s): J18.9 - Pneumonia, unspecified organism (3) Swelling of lower extremity: (4) COPD (chronic obstructive pulmonary disease): Qualifiers: COPD type: emphysema Emphysema type: other Qualified Code(s): J43.8 - Other emphysema (5) Chronic respiratory failure with hypoxia, on home O2 therapy: (6) Acute CHF (congestive heart failure): (7) UTI (urinary tract infection): (8) Physical deconditioning: (9) Acute respiratory failure with hypoxia and hypercapnia: (10) Goals of care, counseling/discussion: (11) Respiratory distress, acute: Plan proceeding to comfort care, for acute hypoxic hypercarbic respiratory failure, acute respiratory distress syndrome, acute encephalopathy, nonresponsiveness - Patient was seen earlier this morning ? Early in the morning, patient had a episode of desaturation, with O2 sat dropping into the 60s, based on BiPAP ? She seen on BiPAP, difficult to arouse she does awaken to sternal rub, but easily falls back asleep, ? She is found in moderate respiratory distress intercostal retraction suprasternal retractions nasal flaring, O2 sats remain in the mid 80s, currently in acute hypoxic hypercarbic respiratory failure and moderate respiratory distress ? She was monitored throughout the morning, she does awaken at times, can follow commands at times but falls back asleep, is encephalopathic most of the time, I cannot get straightforward answers from her, continues to have episodes of respiratory distress, intercostal retractions suprasternal retractions nasal flaring tachypnea tachycardia ? I had a family meeting with patient's 2 daughters at bedside currently patient's current condition, during this time, patient was in moderate respiratory distress on BiPAP, nonresponsive, family at bedside patient is acute hypoxic hypercarbic respiratory failure, acute respiratory distress, discussed goals of care, after discussing the risk and benefits of all options, patient's family voiced understanding, all questions answered, specifically patient's 2 daughters at bedside want to proceed with comfort care ? Patient's daughters does not want Nadia to live like this, they do not want Nadia to suffer, they feel Nadia is currently suffering, and her respiratory distress, she is becoming nonresponsive, they do not want to see Nadia suffer like this, ? We had a detailed discussion with comfort care is, it is not about hastening her but rather easing her pain easing her suffering allowing her to pass away comfortably ? Discussed risk and benefits of comfort care, they voiced understanding, all questions answered, shared decision making, proceeding with comfort care, agreed ? Will proceed with comfort care order set, 88-year-old female currently being treated for pneumonia and COPD exacerbation, CHF exacerbation Acute hypoxic hypercarbic respiratory failure ? Multifactorial from moderate to severe COPD ? CT scan shows advanced chronic paraseptal emphysematous changes ? Pneumonia CT angiogram Advanced chronic paraseptal emphysematous changes. Subtotal consolidation LEFT lower lobe with air bronchograms. Trace pleural fluid. Diffuse interstitial thickening throughout the LEFT lung compatible with edema. Fluid along the LEFT fissure. Patchy infiltrates RIGHT lower lobe with trace fluid. Subpleural opacity RIGHT upper lobe measuring 2.1 cm. Recommend interval follow-up after treatment. ? Fluid overload -With evidence of moderate respiratory failure nasal flaring, intercostal retractions, suprasternal retractions ? Plan -Currently on 6 L ? Continue BiPAP as needed during the day for shortness of breath, scheduled during the night ? Continue broad-spectrum antibiotic therapy Zyvox, meropenem ? Infectious disease consulted -Will hold off on Lasix for today -Has declined steroids during her hospitalization due to concerns for adverse side effects -Monitor respiratory status closely ? Overall goals of care continue medical interventions for now, until family arrives on Saturday, if her condition deteriorates, patient and family agreement to proceed with full comfort care ? Morphine 1 mg every 4 hours as needed for pain, air hunger ? Ativan 0.5 mg every 6 as needed for anxiety ? Physical deconditioning, secondary to underlying COPD -Acute on chronic anemia, monitor Blood cultures negative, urine culture positive for Staphylococcus epidermidis likely contaminant as per ID. 2D echo done this admission showed LVEF 60 to 65%, grade 1 diastolic dysfunction. Lasix changed to 20 mg p.o. daily DuoNebs every 6 hours. Episode of syncope overnight, continue to monitor closely DVT prophylaxis with Lovenox PUD prophylaxis with Protonix 40 mg daily. She is DNR/DNI. ? Status is critical, prognosis for Attestations 2 Medical Necessity Statement*: Patient requires hospitalization for acute hypoxic respiratory failure, with acute respiratory distress syndrome, proceeding with comfort care Diagnoses Need for comfort care Community acquired pneumonia J18.9 Laterality: right Lung location: lower lobe of lung Swelling of lower extremity M79.89 Other emphysema J43.8 COPD type: emphysema Emphysema type: other Chronic respiratory failure with hypoxia, on home O2 therapy J96.11; Z99.81 Acute CHF (congestive heart failure) I50.9 UTI (urinary tract infection) N39.0 Physical deconditioning R53.81 Acute respiratory failure with hypoxia and hypercapnia J96.01; J96.02 Goals of care, counseling/discussion Z71.89 Respiratory distress, acute R06.03
--- NOTE | 2024-01-20 16:14 | PC.NURSE ---
MTS notified of patient passing. Full release from saving site and MTS. Ref #[id number]
--- NOTE | 2024-01-20 16:27 | PM.DDS ---
Discharge Providers DDS Date of Admission: 01/04/24 17:09 Date Summary Completed: 01/26/24 Attending Provider at Admission: Ashlie Holbrook MD Time of : 15:57 Attending Provider at Discharge: Vikram Flanagan MD Primary Care Provider: ANNEL Mckeon Diagnoses Hospital Diagnoses (1) Need for comfort care: (2) Community acquired pneumonia: Qualifiers: Laterality: right Lung location: lower lobe of lung Qualified Code(s): J18.9 - Pneumonia, unspecified organism (3) Swelling of lower extremity: (4) COPD (chronic obstructive pulmonary disease): Qualifiers: COPD type: emphysema Emphysema type: other Qualified Code(s): J43.8 - Other emphysema (5) Chronic respiratory failure with hypoxia, on home O2 therapy: (6) Acute CHF (congestive heart failure): (7) UTI (urinary tract infection): (8) Physical deconditioning: (9) Acute respiratory failure with hypoxia and hypercapnia: (10) Goals of care, counseling/discussion: (11) Respiratory distress, acute: Reason for Visit Reason for Visit FALL Summary Date and Time of Date of : 01/20/24 Time of : 15:57 Summary Summary: Nadia Staley is a 88 year old female resident of [facility], with a past medical history of COPD, chronically on 2 to 3 L/min supplemental oxygen at home. She currently presents with 2 to 3 days of worsening lower extremity swelling, dyspnea on exertion. Patient was seen by her primary care provider on Saturday, her dose of Lasix was increased due to lower extremity swelling. While patient's lower extremity swelling improved, she developed shortness of breath worsening over the last 24 hours today. She felt very weak, and fell while trying to sit on the commode. No head injury. No chest injury. Denies any dysuria. Chest x-ray today shows suspicion for right lower lobe pneumonia. She has leukocytosis. Currently requiring 3 L/min supplemental O2. She is tachypneic in conversation, has a very hard time completing sentences currently. Denies any URI type symptoms. Denies any abdominal pain nausea vomiting or diarrhea. Patient was admitted to [facility] for acute on chronic hypoxic hypercarbic respiratory failure secondary to severe COPD, pneumonia, fluid overload, patient was monitored as inpatient, requiring BiPAP therapy, broad-spectrum antibiotic therapy, diuresis, infectious disease was consulted. Unfortunately, patient had persistent respiratory failure, requiring BiPAP dependence, further diuresis, broadening antibiotic coverage. We had detailed discussions with patient and family about goals of care, patient was DNR/DNI, patient did not want to have aggressive interventions, she had a desire to above I will be comfortable and did not want aggressive interventions, discussions were made about long-term care, versus home hospice versus placement to nursing facility. However patient and family were still discussing long-term options. Patient's condition did improve to the degree that she would come off BiPAP and be on nasal cannula at times during the day. However with minimal exertion or at times episodic, she would go into respiratory failure requiring BiPAP dependence. The morning of 01/20/2024, patient had a significant episode of severe respiratory failure, requiring BiPAP, even with BiPAP she had persistent respiratory failure, respiratory distress, became nonresponsive, after detailed discussion with with the patient's family about goals of care, decision was made to proceed with comfort care, after discussing the risk and benefits, they voiced understanding, all questions answered, agreed to proceed to comfort care, patient was made comfort care, time of 15:57 01/20/2024. Additional Data Confirmation of as documented by pronouncing clinician: no pulse, no respirations and no heart sounds Family: contacted Additional persons at bedside: nursing staff Attending/PCP notified?: I am attending Was code activated?: No Autopsy requested?: No Advance directives?: Yes Discharge Plan Discharge Patient Disposition: Condition: Prescriptions: No Action (DME) oxygen 3.5L See Rx Instructions .Route .MEDSUPPLY Qty: 1 0RF Rx Instructions: As directed fluticasone propion-salmeterol [Advair Diskus] 250-50 mcg/dose blister with device 1 inh inhalation BID 30 Days Qty: 60 5RF Rx Instructions: 340B, pt does NOT Have insurance CAN DO BRAND NAME IF CHEAPER furosemide [Lasix] 20 mg tablet 10 - 20 mg PO DAILY 30 Days Qty: 30 5RF lorazepam 0.5 mg tablet 0.25 - 0.5 mg PO DAILY PRN (Reason: anxiety) 30 Days Qty: 30 5RF (DME) Aeroneb Go Nebulizer Misc See Rx Instructions .Route Qty: 1 0RF Rx Instructions: As directed ropinirole 0.25 mg tablet See Rx Instructions .ROUTE .COMPLEX Qty: 30 0RF Dose Instruction: TAKE 1 TO 2 TABLETS BY MOUTH ONCE DAILY NEEDED FOR RESTLESS LEGS Rx Instructions: TAKE 1 TO 2 TABLETS BY MOUTH ONCE DAILY NEEDED FOR RESTLESS LEGS multivitamin Tablet 1 tab PO QAM Vitamin D3 50 mcg (2,000 unit) Tablet 50 mcg PO DAILY levalbuterol HCl 1.25 mg/3 mL solution for nebulization 1.25 mg inhalation BID Referrals: [facility] [Outside] Ayanna Pennington FNP [Primary Care Provider] - 01/09/24 10:20 am Discharge Diet: Cardiac Discharge Activity: Resume usual activity Patient Instructions: Opioid Safety DS Attestations Time Spent in /Discharge Care*: greater than 30 min Quality - AMI: AMI present?: No Quality - Stroke: CVA present?: No Quality - VTE: VTE present?: No Coding Level of Care Code 18218 Total time (in minutes) for Discharge: 45 Diagnoses Need for comfort care Community acquired pneumonia J18.9 Laterality: right Lung location: lower lobe of lung Swelling of lower extremity M79.89 Other emphysema J43.8 COPD type: emphysema Emphysema type: other Chronic respiratory failure with hypoxia, on home O2 therapy J96.11; Z99.81 Acute CHF (congestive heart failure) I50.9 UTI (urinary tract infection) N39.0 Physical deconditioning R53.81 Acute respiratory failure with hypoxia and hypercapnia J96.01; J96.02 Goals of care, counseling/discussion Z71.89 Respiratory distress, acute R06.03
[2024-01-20 17:48] LABS: Fungitell 1-3-B Glucan Assay <31 pg/ml; Interpretation Negative (Negative)
[2024-01-23 21:10] LABS: Coccidioides AB CF Serum <1:2; Histoplasma capsulatum H Ab NEGATIVE; Histoplasma capsulatum M Ab NEGATIVE
== END 2024-01-20 15:57 | disposition expired | DRG 291 ==
LOC: ER 18:14 → MEDSURG 19:13
PROVIDERS: Internal Medicine; Admitting Provider Student in an Organized Health Care Education/Training Program; Emergency Provider Emergency Medicine; PCP Registered Nurse; Visit Provider Family Medicine
DX: I11.0 Hypertensive heart disease with heart failure (principal); G93.41 Metabolic encephalopathy; I50.31 Acute diastolic (congestive) heart failure; J18.9 Pneumonia, unspecified organism; J96.22 Acute and chronic respiratory failure with hypercapnia; J96.21 Acute and chronic respiratory failure with hypoxia; J44.1 Chronic obstructive pulmonary disease with (acute) exacerbation; N39.0 Urinary tract infection, site not specified; Z16.29 Resistance to other single specified antibiotic; B37.0 Candidal stomatitis; W18.30XA Fall on same level, unspecified, initial encounter; J43.8 Other emphysema; Z66 Do not resuscitate; B95.8 Unspecified staphylococcus as the cause of diseases classified elsewhere; F17.220 Nicotine dependence, chewing tobacco, uncomplicated; R00.0 Tachycardia, unspecified; I48.91 Unspecified atrial fibrillation; Z51.5 Encounter for palliative care; Z99.81 Dependence on supplemental oxygen
CPT/HCPCS: 36415; 36416; 36573; 36592; 36600; 71045; 71275; 80048; 80051; 80053; 80202; 81001; 81003; 82330; 82805; 82962; 83605; 83735; 83880; 84100; 84145; 84484; 85025; 85378; 86140; 86403; 86480; 86635; 86698; 87040; 87070; 87077; 87086; 87186; 87205; 87305; 87426; 87449; 87486; 87581; 87633; 87641; 87804; 92507; 92526; 92610; 93005; 93306; 93970; 94640; 94660; 96365; 96366; 96367; 96372; 97110; 97116; 97161; 97530; 99285; J0456; J0692; J0696; J1100; J1650; J1940; J1956; J2060; J2185; J2270; J2543; J3370; J3490; J7040; J7050; J7614; J7626; J7644; Q0144; Q9967